=== PATIENT | female | born 1950 | race Caucasian/White ===

== ENCOUNTER 2020-07-10 07:39 | Outpatient (CLI) | payer OTHER, SELFPAY ==
--- NOTE | ~2020-07-10 | MR_ITS ---
EXAMINATION: MR lumbar spine wo con DATE: 07/10/2020 10:23 INDICATION: Difficulty walking with pain and numbness in the bilateral lower limbs. TECHNIQUE: Magnetic resonance imaging (MRI) of the lumbar spine was performed without intravenous con trast. Sequences included sagittal T2-weighted FSE, sagittal T2-weighted FS FSE, sagittal T1-weighted FSE, and axial T2-weighted FSE. COMPARISON: CT abdomen and pelvis dated 05/19/2016 FINDINGS: 4 mm anterolisthesis L4 on L5. Chronic mild anterior wedging at T12-L2. Mild marrow edema surrounding small Schmorl's nodes at either side of the L2-L3 and L3-L4 disc spaces. Additional mild fibrofatty and fibrovascular degenerative endplate changes at multiple levels. No pathologic marrow replacing pr ocess. Severe disc height loss at L5-S1. Moderate disc height loss at L4-L5. Mild disc height loss at L2-L3 and L3-L4. The conus medullaris terminates at L2. There is normal signal in the caudal spinal cord. Paravertebral soft tissues are unremarkable. The following disc levels are specifically discuss ed: T12-L1: The disc does not extend beyond the endplate margin. There is moderate bilateral facet joint osteoarthritis. There is no neural foraminal stenosis. There is no central canal stenosis. L1-L2: Disc is minimally bulging. There is hypertrophy of the ligamentum flavum. There is mild to mo derate left and severe right facet joint osteoarthritis. There is minimal bilateral neural foraminal stenosis. There is mild central canal stenosis. L2-L3: Disc is bulging. There is hypertrophy of the ligamentum flavum. There is mild left and moderat e right facet joint osteoarthritis. There is mild left and mild to moderate right neural foraminal st enosis. There is mild to moderate central canal stenosis. L3-L4: Disc is bulging with annular fissure. There is hypertrophy of the ligamentum flavum. There is severe bilateral facet joint osteoarthritis. There is moderate left and mild to moderate right neura l foraminal stenosis. There is moderate central canal stenosis. L4-L5: Disc is bulging with annular fissure. There is hypertrophy of the ligamentum flavum. There is severe bilateral facet joint osteoarthritis. There is moderate bilateral neural foraminal stenosis. There is severe central canal stenosis. L5-S1: The disc does not extend beyond the endplate margin. There is mild right and moderate left fac et joint osteoarthritis. There is mild right and mild to moderate left neural foraminal stenosis. The re is no central canal stenosis. IMPRESSION: 1. Severe lumbar spondylosis most notable for 4 mm anterolisthesis L4 on L5 with severe central canal stenosis. Reviewed, dictated and finalized at location B. R HAND IMPRESSION: 1. Severe lumbar spondylosis most notable for 4 mm anterolisthesis L4 on L5 wit h severe central canal stenosis.
--- NOTE | ~2020-07-10 | US_ITS ---
EXAMINATION: US arterial ankle brachial ind DATE: 07/10/2020 08:55 INDICATION: Bilateral lower limb pain. TECHNIQUE: Segmental pressures and plethysmographic and Doppler waveforms of the brachial and lower e xtremity arteries were obtained. COMPARISON: None. FINDINGS: Right and left brachial artery pressures of 147 mm Hg and 176 mm Hg, respectively, are concordant (no rmal difference <= 30 mmHg). Relatively symmetric biphasic waveforms with brisk systolic upstrokes at both the right and left brachial arteries. The right ankle-brachial index (NINI) is 1.01 (normal >= 0.9-1.0). The right great toe-brachial index (TBI) is 0.92 (normal >= 0.65). Arterial Doppler waveforms are biphasic with brisk systolic upstrokes at both the right posterior tibial and dorsalis pedis arteries. The left NINI is 1.00. The left TBI is 0.69. Arterial Doppler waveforms are biphasic with brisk systol ic upstrokes of both the left posterior tibial and dorsalis pedis arteries.. IMPRESSION: 1. No significant arterial occlusive disease to either lower limb with normal bilateral ABIs and TBIs . 2. Cardiac arrhythmia noted on a couple of the arterial waveforms tracings. Correlate with EKG . Reviewed, dictated and finalized at location B. SFUSION AIDE IMPRESSION: 1. No significant arterial occlusive disease to either lower limb with normal b ilateral ABIs and TBIs. 2. Cardiac arrhythmia noted on a couple of the arterial waveforms tracings. Cor relate with EKG .
[2020-07-10 08:39] LABS: Alanine Aminotransferase 15 U/L (4-35); Albumin Level 3.8 g/dL (3.5-5.1); Alkaline Phosphatase 93 U/L (38-126); Anion Gap 4 mmol/L (8-16); Aspartate Amino Transferase 23 U/L (14-36); Bilirubin,Total 0.6 mg/dL (0.2-1.3); Blood Urea Nitrogen 12 mg/dL (7-17); CRP 0.9 mg/dL (<1.0); Calcium 9.5 mg/dL (8.4-10.2); Carbon Dioxide 29 mmol/L (22-30); Chloride 106 mmol/L (98-107); Creatine Kinase 44 U/L (30-135); Estimated Glomerular Filt Rate > 60; Glucose 99 mg/dL (65-105); Potassium 4.5 mmol/L (3.4-5.0); Sodium 139 mmol/L (137-145)
[2020-07-10 08:40] LABS: Rheumatoid Factor < 8.6 IU/ML (<12)
[2020-07-10 08:52] LABS: Erythrocyte Sedimentation Rate 49 mm/hr (0-20)
== END 2020-07-10 07:40 | disposition home or self-care (01) ==
PROVIDERS: Family Provider Family Medicine; PCP Family Medicine; Visit Provider Nurse Practitioner Family
DX: R29.898 Other symptoms and signs involving the musculoskeletal system (principal); M79.604 Pain in right leg; M79.605 Pain in left leg; R09.89 Other specified symptoms and signs involving the circulatory and respiratory systems; M47.816 Spondylosis without myelopathy or radiculopathy, lumbar region; I49.9 Cardiac arrhythmia, unspecified
CPT/HCPCS: 36415; 72148; 80053; 82550; 85652; 86140; 86430; 93922

== ENCOUNTER 2020-12-16 22:59 | Emergency (ER) | payer OTHER, SELFPAY ==
--- NOTE | ~2020-12-16 | XR_ITS ---
XR chest 1V portable 12/16/2020 23:14 Indication: Weakness. Dyspnea. Procedure: AP portable chest Comparison: Comparison to multiple prior studies sequentially, with oldest reviewed study dated 02/04. Findings: Heart size upper normal. There is bibasilar atelectasis/scarring. No focal pneumonia, edema , pleural effusion or pneumothorax. No acute osseous abnormality. Mild degenerative changes of the sh oulders. Impression: 1: Bibasilar atelectasis/scarring. Reviewed, dictated and finalized at location A. Impression: 1: Bibasilar atelectasis/scarring.
--- NOTE | ~2020-12-16 | CT_ITS ---
EXAMINATION: CT BRAIN W/O DATE: 12/16/2020 23:23 INDICATION: Left arm numbness TECHNIQUE: Computed tomography (CT) of the head was performed without intravenous contrast. The dose- length product was 681.00 mGy-cm. Automated exposure control and iterative reconstruction technique w ere employed. COMPARISON: CT dated 05/14/2009 FINDINGS: Normal brain parenchymal volume for age. Normal schaefer-white differentiation. No acute intrac ranial hemorrhage, infarction, mass or mass effect. There are scattered mild periventricular and subc ortical white matter changes, most likely related to small vessel ischemic disease (microangiopathy). No ventriculomegaly or midline shift. Midline sagittal images demonstrate a normal corpus callosum, c raniovertebral junction and sella turcica. Basilar cisterns are patent. Paranasal sinuses and mastoids are pneumatized. No depressed skull fractures. IMPRESSION: 1. No acute intracranial abnormality. 2: Chronic age-related findings. Reviewed, dictated and finalized at location A.
--- NOTE | 2020-12-16 23:05 | ECG_ITS ---
Measurements Intervals [place] Rate: 62 P: 21 CT: 182 QRS: -4 QRSD: 97 T: 19 QT: 382 QTc: 391 Interpretive Statements SINUS RHYTHM DELAYED PRECORDIAL R/S TRANSITION BORDERLINE ECG Electronically Signed On 12-17-2020 6:57:33 CDT by Cristhian Moreau D.O.
[2020-12-16 23:13] VITALS: BP 155/109; PULSE 66; RESP 17; TEMP 36.2; O2SAT 96; O2SAT 97
[2020-12-17 00:02] LABS: Basophils Absolute Auto 0.1 K/mm3 (0.0-0.1); Basophils Percent Auto 0.8 % (0.2-1.2); Eosinophils Absolute Auto 0.4 K/mm3 (0-0.3); Eosinophils Percent Auto 4.8 % (0-4.4); Hematocrit 43.5 % (37.0-47.0); Hemoglobin 13.9 g/dL (12.0-15.0); Immature Granulocyte Absolute 0.03 K/mm3 (0.00-0.031); Immature Granulocyte Percent A 0.4 % (0-0.5); Lymphocytes Absolute Auto 2.22 K/mm3 (0.9-3.2); Lymphocytes Percent Auto 26.7 % (18.3-44.2); Mean Corpuscular Volume 90.8 fl (80-100); Mean Platelet Volume 9.9 fl (7.4-10.4); Monocytes Absolute Auto 0.7 K/mm3 (0.1-0.6); Monocytes Percent Auto 8.3 % (2.6-8.5); Neutrophils Absolute Auto 4.9 K/mm3 (1.3-6.7); Platelet Count Result 232 k/mm3 (150-375); Red Blood Count 4.79 M/mm3 (4.2-5.4); Red Cell Distribution Width 14.6 % (11.5-14.5); White Blood Count 8.3 K/mm3 (4.5-10.0)
[2020-12-17 00:13] LABS: Lactic Acid Reflex 1.9 mmol/L (0.7-2.1)
--- NOTE | 2020-12-17 00:14 | ED.GENADULT ---
HPI - General Adult General Chief complaint: Neuro Symptoms/Deficit Stated complaint: possible code stroke Time Seen by Provider: 12/16/20 23:01 History of Present Illness HPI narrative: Patient 70-year-old female that presents the emergency department with chief complaint of numbness of the left hand. Patient states that she started having tingling in the dorsum aspect of her left hand. The patient states that it did initially radiate up her arm but then subsequently is just on the dorsum of the hand and not on the palmar aspect of the hand. The patient states that she had no focal motor deficit denied facial droop denied left leg weakness. The reports that she has chronic weakness in her legs that is unchanged from previous days. Related Data Home Medications Medication Instructions Recorded Confirmed aspirin 81 mg tablet,delayed 81 mg PO DAILY 08/27/19 11/20/20 release Allergies Allergy/AdvReac Type Severity Reaction Status Date / Time hydrocodone Allergy Severe SET BODY Verified 12/16/20 23:47 ON FIRE methocarbamol Allergy Mild ?NOT Verified 12/16/20 23:47 FAMILIAR WITH MED. Review of Systems Review of Systems: Narrative: A 10 system review of systems was completed on the patient and is negative except for what is stated in the HPI. Nursing and ancillary documentation was reviewed. [facility] Past Medical History Medical History Abnormal colonoscopy (~2012) polyps removed - repeat 5 yrs CAD (coronary artery disease) Central stenosis of spinal canal Encounter for screening for malignant neoplasm of colon Essential (primary) hypertension Hyperlipidemia Hypothyroid Reactive depression Spondylosis of lumbar spine with myelopathy Vitamin D deficiency Surgical History Surgical History History of cholecystectomy History of total left knee replacement (~2010) History of tubal ligation Family History Family History Mother Family history of primary malignant neoplasm of liver Father Family history of coronary artery disease Social History Social History Smoking status: Never smoker Alcohol intake: never Gender identity (if verbalized by the patient): Female Exam Narrative: Exam Narrative: GENERAL: Well-appearing, well-nourished, and in no acute distress. HEAD: Normocephalic, atraumatic. EYES: PERRLA and EOMI. ENT: Nares clear, no rhinorrhea or epistaxis. Mucous membranes moist. NECK: Supple. CHEST: Clear to auscultation. No respiratory distress. HEART: Regular rate and rhythm. No murmur heard. Normal peripheral pulses. ABDOMEN: Soft, nontender, nondistended, normal active bowel sounds. EXTREMITIES: Normal range of motion. No edema. SKIN: Warm, dry, no rash. NEURO: No focal deficits. Alert and oriented x3. PSYCH: Normal mood and affect. Course Course Emergency Course: EKG is sinus rhythm rate of [address] elevation or ST depression Vital Signs Vital signs: Vital Signs Temperature 36.2 C L 12/16/20 23:13 Pulse Rate 66 12/16/20 23:13 Respiratory Rate 12/16/20 23:13 Blood Pressure 155/109 H 12/16/20 23:13 Pulse Oximetry 96 12/16/20 23:13 Temperature 36.2 C L 12/16/20 23:13 Pulse Rate 66 12/16/20 23:13 Respiratory Rate 12/16/20 23:13 Blood Pressure 155/109 H 12/16/20 23:13 Pulse Oximetry 97 12/16/20 23:13 Medical Decision Making Vital Signs Vital Signs: Vital Signs Temperature 36.2 C L 12/16/20 23:13 Pulse Rate 66 12/16/20 23:13 Respiratory Rate 12/16/20 23:13 Blood Pressure 155/109 H 12/16/20 23:13 Pulse Oximetry 96 12/16/20 23:13 Temperature 36.2 C L 12/16/20 23:13 Pulse Rate 66 12/16/20 23:13 Respiratory Rate 12/16/20 23:13 Blood Pressure
[2020-12-17 00:15] LABS: Alanine Aminotransferase 13 U/L (4-35); Albumin Level 4.2 g/dL (3.5-5.1); Alkaline Phosphatase 93 U/L (38-126); Anion Gap 7 mmol/L (8-16); Aspartate Amino Transferase 23 U/L (14-36); Bilirubin,Total 0.4 mg/dL (0.2-1.3); Blood Urea Nitrogen 16 mg/dL (7-17); Calcium 9.5 mg/dL (8.4-10.2); Carbon Dioxide 28 mmol/L (22-30); Chloride 104 mmol/L (98-107); Estimated CRCL calculation 61 ml/min; Estimated Glomerular Filt Rate > 60; Glucose 100 mg/dL (65-105); Magnesium 1.4 mg/dL (1.6-2.3); Partial Thromboplastin Time 34.2 SECONDS (22.3-36.8); Potassium 3.7 mmol/L (3.4-5.0); Sodium 139 mmol/L (137-145)
[2020-12-17 00:26] LABS: Troponin I < 0.012 ng/mL (0.000-0.034)
[2020-12-17] MEDS: MAGNESIUM SULF 2 GM/WATER 50ML 2 GM/50 ML BAG IVPB (00:55)
--- NOTE | 2020-12-17 01:40 | PC.NURSE ---
IV attempt at EJ unsuccessful per Dr. Davies. Preparing to place central line.
== END 2020-12-17 01:45 | disposition home or self-care (01) ==
PROVIDERS: Emergency Provider Emergency Medicine; PCP Family Medicine
DX: R20.2 Paresthesia of skin (principal); E83.42 Hypomagnesemia; I25.10 Atherosclerotic heart disease of native coronary artery without angina pectoris; I10 Essential (primary) hypertension; E78.5 Hyperlipidemia, unspecified; E03.9 Hypothyroidism, unspecified; E55.9 Vitamin D deficiency, unspecified; Z96.652 Presence of left artificial knee joint; R94.31 Abnormal electrocardiogram [ECG] [EKG]
CPT/HCPCS: 36415; 70450; 71045; 80053; 83605; 83735; 84484; 85025; 85610; 85730; 93005; 96365; 99284; J3475

== ENCOUNTER 2021-02-06 19:05 | Inpatient (IN) | payer MEDICARE, MEDICAID, SELFPAY ==
[2021-02-06] VITALS (16 sets, daily range): BP systolic 130–169; BP diastolic 74–126; PULSE 68–103; RESP 12–19; TEMP 36.8; O2SAT 98–100
--- NOTE | ~2021-02-06 | CT_ITS ---
EXAMINATION: CT brain wo con DATE: 02/06/2021 20:22 INDICATION: Syncope. Neck pain. TECHNIQUE: Computed tomography (CT) of the head was performed without intravenous contrast. The mA wa s adjusted according to patient size. Iterative reconstruction technique was employed. Exam dose: 60 5.33 mGy-cm total exam DLP. COMPARISON: None FINDINGS: No intracranial mass lesion or hemorrhage or cerebrovascular accident is evident. There is no midline shift or mass effect effect. There is bilateral carotid siphon internal carotid artery calcification. There is nonspecific diminis hed attenuation of the subcortical and periventricular cerebral white matter, likely due to chronic s mall vessel ischemic changes. No subdural or epidural hematoma. No fracture or bone destruction of the cranial vault. Included paranasal sinuses and the mastoid air cells are unremarkable. IMPRESSION: Cerebral atherosclerosis and chronic small vessel ischemic changes of cerebral white mat ter No acute intracranial finding Reviewed, dictated and finalized at Location [facility]. Reviewed, dictated and finalized at location A. IMPRESSION: Cerebral atherosclerosis and chronic small vessel ischemic changes of cerebral white matter No acute intracranial finding
--- NOTE | ~2021-02-06 | CT_ITS ---
EXAMINATION: CT cervical spine wo con DATE: 02/06/2021 20:22 INDICATION: Fall. Neck pain. TECHNIQUE: Computed tomography (CT) of the cervical spine was performed without intravenous contrast. Automated exposure control and iterative reconstruction technique were employed. Exam dose: 429.02 mGy-cm total exam DLP. COMPARISON: None FINDINGS: There are erosive changes of the odontoid process and at the left C1 and C2 apophyseal join t. Moderately severe degenerative disc disease at C3-4, C4-5, C5-6, C6-7. There is degenerative change at the apophyseal joints. Uncovertebral joint spurring is noted througho ut the cervical spine as well. No fracture or dislocation or locked facet or prevertebral soft tissue swelling is evident.. IMPRESSION: Erosive changes of the odontoid and left C1-C2 apophyseal joint Extensive degenerative changes of the cervical spine No fracture or dislocation, locked facet or prevertebral soft tissue swelling Reviewed, dictated and finalized at Location [facility]. Reviewed, dictated and finalized at location A.
--- NOTE | ~2021-02-06 | CT_ITS ---
EXAMINATION: CTA chest PE protocol DATE: 02/06/2021 22:10 INDICATION: Syncope. Elevated d-dimer. TECHNIQUE: Computed tomography angiography (CTA) of the chest was performed with 100 mL Omnipaque-350 intravenous contrast timed to evaluate the pulmonary arteries. Coronal maximum intensity projection 3D-reconstructions were created by the technologist. Automated exposure control and iterative reconst ruction technique were employed. Exam dose: 999.83 mGy-cm total exam DLP. COMPARISON: 12/16/2020 portable AP chest FINDINGS: There is diagnostic contrast enhancement of the pulmonary arteries and no evidence of pulmo nary embolism. 4.2 cm diameter of ascending aorta. No thoracic aortic dissection. Normal heart size. No pericardial or pleural effusion. No hilar or mediastinal mass lesion or lymphadenopathy. Bilateral lower lung discoid atelectasis and/or scarring. No pulmonary scarring or pulmonary mass les ion. Prominent right leaf diaphragm. Normal morphology of the adrenal glands. Disposition spondylolisthesis of the thoracic spine. IMPRESSION: No evidence of pulmonary embolism Bilateral lower lung discoid atelectasis and/or scarring Reviewed, dictated and finalized at [facility]. Reviewed, dictated and finalized at location A.
--- NOTE | 2021-02-06 19:06 | ECG_ITS ---
Measurements Intervals [place] Rate: 84 P: -56 NV: 147 QRS: -17 QRSD: 98 T: 62 QT: 332 QTc: 393 Interpretive Statements SINUS RHYTHM ATRIAL PREMATURE COMPLEX BASELINE ARTIFACT- I, II, III BORDERLINE ECG Electronically Signed On 02-07-2021 8:17:57 CDT by Cristhian Moreau D.O.
[2021-02-06 19:49] LABS: Basophils Absolute Auto 0.1 K/mm3 (0.0-0.1); Basophils Percent Auto 0.8 % (0.2-1.2); Eosinophils Absolute Auto 0.3 K/mm3 (0-0.3); Eosinophils Percent Auto 4.1 % (0-4.4); Hematocrit 43.4 % (37.0-47.0); Hemoglobin 13.7 g/dL (12.0-15.0); Immature Granulocyte Absolute 0.03 K/mm3 (0.00-0.031); Immature Granulocyte Percent A 0.4 % (0-0.5); Lymphocytes Absolute Auto 2.24 K/mm3 (0.9-3.2); Lymphocytes Percent Auto 27.1 % (18.3-44.2); Mean Corpuscular HGB Conc 31.6 g/dl (32-36); Mean Corpuscular Hemoglobin 28.7 pg (26-34); Mean Corpuscular Volume 90.8 fl (80-100); Mean Platelet Volume 9.8 fl (7.4-10.4); Monocytes Absolute Auto 0.8 K/mm3 (0.1-0.6); Monocytes Percent Auto 9.4 % (2.6-8.5); Neutrophils Absolute Auto 4.8 K/mm3 (1.3-6.7); Neutrophils Percent Auto 58.2 % (45.5-73.1); Platelet Count Result 245 k/mm3 (150-375); Red Blood Count 4.78 M/mm3 (4.2-5.4); Red Cell Distribution Width 14.6 % (11.5-14.5); White Blood Count 8.3 K/mm3 (4.5-10.0)
[2021-02-06 20:00] LABS: Anion Gap 7 mmol/L (8-16); Blood Urea Nitrogen 15 mg/dL (7-17); Calcium 9.4 mg/dL (8.4-10.2); Carbon Dioxide 25 mmol/L (22-30); Chloride 108 mmol/L (98-107); Estimated CRCL calculation 63 ml/min; Estimated Glomerular Filt Rate > 60; Glucose 108 mg/dL (65-110); Potassium 4.3 mmol/L (3.4-5.0); Sodium 140 mmol/L (137-145)
--- NOTE | 2021-02-06 20:18 | ED.SYNCOPE ---
HPI - Syncope General Chief Complaint: Syncope Stated Complaint: near syncope Source: patient Mode of arrival: EMS Limitations: no limitations History of Present Illness HPI narrative: Patient is a 70-year-old female complaining of a syncopal episode at home. Patient states that she felt dizzy prior to the syncopal episode. Patient states that she has been feeling sick for the past few days with nausea vomiting and diarrhea. Patient denies speech or visual disturbance, focal weakness or numbness, unsteady gait, chest pain, shortness of breath abdominal pain, fever, chills or urinary symptoms. Related Data Home Medications Medication Instructions Recorded Confirmed aspirin 81 mg tablet,delayed 81 mg PO DAILY 08/27/19 11/20/20 release Allergies Allergy/AdvReac Type Severity Reaction Status Date / Time hydrocodone Allergy Severe SET BODY Verified 02/06/21 20:33 ON FIRE methocarbamol Allergy Mild ?NOT Verified 02/06/21 20:33 FAMILIAR WITH MED. Review of Systems Review of Systems: All systems reviewed & are unremarkable except as noted in HPI and below Constitutional: Constitutional: Denies body ache(s), Denies chills, Denies excessive sweating, Denies fatigue, Denies fever(s), Denies headache(s), Denies lethargy, Denies malaise, Denies weakness and Denies weight loss Eyes: Eyes: Denies blurry vision, Denies change in vision and Denies loss of vision ENT: Denies dizziness, Denies ear discharge, Denies headache(s), Denies lip swelling, Denies epistaxis, Denies nasal congestion, Denies neck pain, Denies throat swelling and Denies tongue swelling Cardiovascular: Cardiovascular: Denies chest pain, Denies chest pain at rest, Denies chest pain with activity, Denies diaphoresis, Denies rapid heart rate, Denies edema, Denies irregular heart rhythm, Denies lightheadedness, Denies palpitations, Denies dyspnea and Denies dyspnea on exertion Respiratory: Respiratory: Denies chest congestion, Denies cough, Denies hemoptysis, Denies dyspnea and Denies dyspnea on exertion Gastrointestinal: Gastrointestinal: Denies abdominal pain, Denies melena, Denies hematochezia, Denies diarrhea, Denies nausea, Denies vomiting and Denies hematemesis Musculoskeletal: Musculoskeletal: Denies abnormal gait, Denies deformity, Denies joint swelling, Denies limited range of motion, Denies neck pain and Denies numbness Neurologic: Denies Abnormal speech present, Denies abnormal gait, Denies confusion, Denies dizziness, Denies headache(s), Denies focal weakness, Denies loss of vision, Denies numbness, Denies Other visual disturbances, Denies Sensory deficit (Neuro) and Denies weakness Psychiatric: Psychiatric: Denies confusion, Denies depression, Denies auditory hallucinations, Denies homicidal ideation and Denies suicidal ideation Endocrine: Endocrine: Denies cold intolerance, Denies excessive sweating, Denies fatigue, Denies heat intolerance and Denies palpitations Hematologic/Lymphatic: Hematologic/Lymphatic: Denies easy bleeding and Denies easy bruising Allergic/Immunologic: Allergic/Immunologic: Denies lip swelling, Denies throat swelling and Denies tongue swelling PMFSH Past Medical History Medical History Abnormal colonoscopy (~2012) polyps removed - repeat 5 yrs CAD (coronary artery disease) Central stenosis of spinal canal Encounter for screening for malignant neoplasm of colon Essential (primary) hypertension Hyperlipidemia Hypothyroid Reactive depression Spondylosis of lumbar spine with myelopathy Vitamin D deficiency Surgical History Surgical History History of cholecystectomy History of total left knee replacement (~2010) History of tubal ligation Family History Family History Mother Family history of primary malignant neoplasm of liver Father Family
--- NOTE | 2021-02-06 20:31 | PC.NURSE ---
called lab and added on a d dimer, CMP, lipase
[2021-02-06] MEDS: LACTATED RINGERS 1,000 ML 999 ML IV CONT (20:32)
[2021-02-06 20:41] LABS: Alanine Aminotransferase 14 U/L (4-35); Alkaline Phosphatase 91 U/L (38-126); Anion Gap 10 mmol/L (8-16); Aspartate Amino Transferase 21 U/L (14-36); Bilirubin,Total 0.2 mg/dL (0.2-1.3); Blood Urea Nitrogen 15 mg/dL (7-17); Calcium 9.6 mg/dL (8.4-10.2); Carbon Dioxide 22 mmol/L (22-30); Chloride 104 mmol/L (98-107); Estimated CRCL calculation 63 ml/min; Estimated Glomerular Filt Rate > 60; Glucose 112 mg/dL (65-110); Lipase 70 U/L (23-300); Potassium 4.1 mmol/L (3.4-5.0); Sodium 136 mmol/L (137-145)
[2021-02-06 21:01] LABS: D Dimer 2.03 ug/mL (<0.48)
[2021-02-07] VITALS (11 sets, daily range): BP systolic 136–141; BP diastolic 50–72; PULSE 53–87; RESP 16–20; TEMP 36.2–36.7; O2SAT 96–100; BMI 47.6
[2021-02-07] MEDS: LACTATED RINGERS 1,000 ML 100 ML IV CONT ×2 (00:25→11:48)
--- NOTE | 2021-02-07 01:11 | PM.IMHP ---
H&P: HPI History of Present Illness Date/Time: 02/07/21 01:11 Chief Complaint: Syncope Narrative: Patient is a 70-year-old female presents to the ER today with 1 syncopal episode. She stated that she has been feeling sick for the past few days with nausea of vomiting and diarrhea and abdominal soreness. She states she had been having 3-4 episodes of loose stool since past week. yesterday in the afternoon when she was trying to get to the commode she found herself down on the floor. She does not recall how long she had been down though. She has been feeling dizzy and lightheadedness for the past week now. No fever chills no shortness of breath or chest pain. In the ER she is found to have normal CBC and CMP normal lipase is however was noted to have elevated D-dimer for which CTA was done which was negative for PE. He reports he has been having left-sided neck pain which is chronic problem for has been particularly bothering her for which a cervical spine CT scan was done which showed extensive degenerative changes of the cervical spine with erosive changes of the odontoid and left C1-C2 apophyseal joint. CT head was negative for any acute intracranial finding. EKG was within normal limit. She is admitted for further evaluation and management under observation status. Review of Systems Review of Systems: - CONSTITUTIONAL: Denies weight loss, fever and chills. - HEENT: Denies changes in vision and hearing - RESPIRATORY: Denies SOB and cough. - CV: Denies palpitations and CP. - GI: Reports abdominal pain, nausea, vomiting and diarrhea. - : Denies dysuria and urinary frequency. - MSK: Denies myalgia and joint pain. - SKIN: Denies rash and pruritus. - NEUROLOGICAL: Denies headache and reports syncope. - PSYCHIATRIC: Denies recent changes in mood. Denies anxiety and depression. All systems reviewed & are unremarkable except as noted in HPI and below Constitutional: Constitutional: Reports fatigue and Reports weakness Neurologic: Reports weakness Endocrine: Endocrine: Reports fatigue PMFSH Past Medical History Medical History Abnormal colonoscopy (~2012) polyps removed - repeat 5 yrs CAD (coronary artery disease) Central stenosis of spinal canal Encounter for screening for malignant neoplasm of colon Essential (primary) hypertension Hyperlipidemia Hypothyroid Reactive depression Spondylosis of lumbar spine with myelopathy Vitamin D deficiency Surgical History Surgical History History of cholecystectomy History of total left knee replacement (~2010) History of tubal ligation Family History Family History Mother Family history of primary malignant neoplasm of liver Father Family history of coronary artery disease Social History Social History Smoking status: Never smoker Alcohol intake: never Substance use: never Gender identity (if verbalized by the patient): Female Spiritual care concerns: No Meds Home Medications and Allergies Home Medications Medication Instructions Recorded Confirmed Type aspirin 81 mg tablet,delayed 81 mg PO DAILY 08/27/19 02/07/21 History release losartan 100 mg PO DAILY 02/07/21 02/07/21 History magnesium oxide 400 mg PO EVERY OTHER DAY 02/07/21 02/07/21 History Allergies Allergy/AdvReac Type Severity Reaction Status Date / Time hydrocodone Allergy Severe SET BODY Verified 02/06/21 20:33 ON FIRE methocarbamol Allergy Mild ?NOT Verified 02/06/21 20:33 FAMILIAR WITH MED. Vital Signs Vital Signs - 24 hr 02/06/21 19:06 02/06/21 20:30 02/06/21 20:45 Temperature 98.3 F Pulse Rate 88 74 84 Respiratory Rate 16 19 12 Blood Pressure 130/74 Pulse Oximetry 99 98 100 02/06/21 20:46
[2021-02-07 06:01] LABS: Add Urine Microscopic? YES; Appearance Urine Clear (Clear); Bacteria Urine Trace /hpf; Bilirubin Urine Negative (Negative); Blood Urine 1+ (Negative); Color Urine Yellow (Yellow); Glucose Urine UA Negative (Negative); Ketones Urine Negative (Negative); Leukocyte Esterase Ur 1+ LEU/UL (NEGATIVE); Mucus Urine Rare /lpf; Nitrate Urine Positive (Negative); Protein Urine Negative (Negative); Squamous Epithelial Cell Urine Rare /hpf (Few); Urobilinogen Urine Negative mg/dL (<2.0); WBC Urine 16-20 /hpf (0-3)
[2021-02-07 06:02] LABS: Specific Grav Ur 1.038 (1.001-1.035)
[2021-02-07] MEDS: NAPROXEN SODIUM 220 MG TABLET PO ×2 (06:30→20:40)
[2021-02-07] MEDS: ENOXAPARIN 40 MG/0.4 ML SYRINGE SUB-Q (09:06)
[2021-02-07] MEDS: ASPIRIN 81 MG ENTERIC TABLET PO (09:06)
[2021-02-07] MEDS: LOSARTAN POTASSIUM 50 MG TABLET 100 MG PO (09:06)
--- NOTE | 2021-02-07 12:27 | PM.IMPN ---
Progress Note: A&P Assessment and Plan (1) Syncope: Qualifiers: Syncope type: unspecified Qualified Code(s): R55 - Syncope and collapse Code(s): R55 - Syncope and collapse Status: Acute (2) Neck muscle strain: Qualifiers: Encounter type: initial encounter Qualified Code(s): S16.1XXA - Strain of muscle, fascia and tendon at neck level, initial encounter Code(s): S16.1XXA - Strain of muscle, fascia and tendon at neck level, initial encounter Status: Acute (3) Hyperlipidemia: Qualifiers: Hyperlipidemia type: mixed hyperlipidemia Qualified Code(s): E78.2 - Mixed hyperlipidemia Code(s): E78.5 - Hyperlipidemia, unspecified Status: Acute (4) Essential (primary) hypertension: Code(s): I10 - Essential (primary) hypertension Status: Acute (5) Hypothyroid: Qualifiers: Hypothyroidism type: acquired Qualified Code(s): E03.9 - Hypothyroidism, unspecified Code(s): E03.9 - Hypothyroidism, unspecified Status: Acute (6) CAD (coronary artery disease): Code(s): I25.10 - Atherosclerotic heart disease of [place] coronary artery without angina pectoris Status: Acute (7) Lower extremity pain, bilateral: Code(s): M79.604 - Pain in right leg; M79.605 - Pain in left leg Status: Acute (8) Weakness of both lower limbs: Code(s): R29.898 - Other symptoms and signs involving the musculoskeletal system Status: Acute (9) Central stenosis of spinal canal: Code(s): M48.00 - Spinal stenosis, site unspecified Status: Acute (10) Spondylosis of lumbar spine with myelopathy: Code(s): M47.16 - Other spondylosis with myelopathy, lumbar region Status: Acute (11) Neurogenic bladder: Code(s): N31.9 - Neuromuscular dysfunction of bladder, unspecified Status: Acute Additional Plan # syncope likely due to orthostasis Former history. orthostatic vitals However negative in the ER. D-dimer elevated however CT a negative for PE. EKG with normal sinus rhythm. Have to get urine sample to check for UTI but no samples collected yet however denies any urinary symptoms # Nausea vomiting diarrhea likely acute gastroenteritis slowly improving spontaneously. Continue IV hydration. Stool studies showed # Bilateral lower extremity weakness related to spinal canal stenosis and lumbar spondylosis /myelopathy # Neurogenic bladder on self catheterization since past 5 years # Left-sided neck pain has been seeing her primary care for this as well CT cervical spine with moderately severe degenerative disc disease she has been referred to Neurosurgery by her primary care Dr. Hoffman awaiting his evaluation # Hypothyroidism # Hypertension # Hyperlipidemia # Coronary artery disease no stents in the past reported # Morbid obesity # Pre diabetes # History of syncope # Sleep apnea # Diastolic CHF # Peripheral vascular disease mild lower extremities # DVT prophylaxis Lovenox # Full code status Subjective Date/time seen: 02/07/21 12:27 Interval history: Agree with current A/P Objective Data Vital Signs Vital Signs: Vital Signs - 24 hr 02/06/21 19:06 02/06/21 20:30 02/06/21 20:45 Temperature 36.8 C Pulse Rate 88 74 84 Respiratory Rate 16 19 12 Blood Pressure 130/74 Pulse Oximetry 99 98 100 02/06/21 20:46 02/06/21 20:47 02/06/21 21:03 Temperature Pulse Rate 83 87 87 Respiratory Rate 19 Blood Pressure 137/93 H Pulse Oximetry 98 98 100 02/06/21 21:20 02/06/21 21:30 02/06/21 21:31 Temperature Pulse Rate 89 83 83 Respiratory Rate 18 19 15 Blood Pressure 137/98 H 169/94 H Pulse Oximetry 02/06/21 21:33 02/06/21 21:37 02/06/21 21:55 Temperature Pulse Rate 103 H 68 Respiratory Rate 12 Blood Pressure 169/94 H 165/126 H Pulse Oximetry 98 02/06/21 22:00 02/06/21 22:15 02/06/21 22:30 Temperature Pulse Rate 69 75 96 Respiratory Rate 13
[2021-02-07] MEDS: ONDANSETRON INJ 4 MG/2 ML VIAL IV PUSH (18:06)
[2021-02-08] VITALS (9 sets, daily range): BP systolic 127–129; BP diastolic 50–71; PULSE 53–81; RESP 16–18; TEMP 36.3–36.9; O2SAT 96–98
[2021-02-08] MEDS: LACTATED RINGERS 1,000 ML 100 ML IV CONT (01:20)
[2021-02-08] MEDS: NAPROXEN SODIUM 220 MG TABLET PO ×2 (01:28→21:29)
[2021-02-08 06:01] LABS: Hemoglobin 12.9 g/dL (12.0-15.0); Mean Corpuscular HGB Conc 31.5 g/dl (32-36); Mean Corpuscular Hemoglobin 29.4 pg (26-34); Mean Corpuscular Volume 93.4 fl (80-100); Mean Platelet Volume 10.1 fl (7.4-10.4); Platelet Count Result 210 k/mm3 (150-375); Red Blood Count 4.39 M/mm3 (4.2-5.4); Red Cell Distribution Width 14.6 % (11.5-14.5); White Blood Count 7.5 K/mm3 (4.5-10.0)
[2021-02-08 06:10] LABS: Anion Gap 6 mmol/L (8-16); Blood Urea Nitrogen 16 mg/dL (7-17); Carbon Dioxide 25 mmol/L (22-30); Chloride 107 mmol/L (98-107); Estimated CRCL calculation 61 ml/min; Estimated Glomerular Filt Rate > 60; Glucose 86 mg/dL (65-110); Potassium 4.1 mmol/L (3.4-5.0); Sodium 138 mmol/L (137-145)
[2021-02-08] MEDS: MAGNESIUM OXIDE 400 MG TABLET PO (09:20)
[2021-02-08] MEDS: LOSARTAN POTASSIUM 50 MG TABLET 100 MG PO (09:20)
[2021-02-08] MEDS: ASPIRIN 81 MG ENTERIC TABLET PO (09:20)
[2021-02-08] MEDS: ENOXAPARIN 40 MG/0.4 ML SYRINGE SUB-Q (09:20)
--- NOTE | 2021-02-08 10:48 | PM.IMPN ---
Progress Note: A&P Assessment and Plan (1) Syncope: Qualifiers: Syncope type: unspecified Qualified Code(s): R55 - Syncope and collapse Code(s): R55 - Syncope and collapse Status: Acute Assessment and Plan: Suspect due to orthostasis, former history orthostatic vitals negative in the ER D-dimer elevated , CT a negative for PE Repeat ECG with normal sinus rhythm Some episodes of bradycardia while resting Will check ECHO, hx of diastolic CHF (2) Neck muscle strain: Qualifiers: Encounter type: initial encounter Qualified Code(s): S16.1XXA - Strain of muscle, fascia and tendon at neck level, initial encounter Code(s): S16.1XXA - Strain of muscle, fascia and tendon at neck level, initial encounter Status: Acute Assessment and Plan: Left-sided neck pain, follwed by PCP CT cervical spine with moderately severe degenerative disc disease Referred to Neurosurgery by her PCP, Dr. Hoffman, awaiting his evaluation (3) Hyperlipidemia: Qualifiers: Hyperlipidemia type: mixed hyperlipidemia Qualified Code(s): E78.2 - Mixed hyperlipidemia Code(s): E78.5 - Hyperlipidemia, unspecified Status: Acute (4) Essential (primary) hypertension: Code(s): I10 - Essential (primary) hypertension Status: Acute (5) Hypothyroid: Qualifiers: Hypothyroidism type: acquired Qualified Code(s): E03.9 - Hypothyroidism, unspecified Code(s): E03.9 - Hypothyroidism, unspecified Status: Acute Assessment and Plan: No home meds (6) CAD (coronary artery disease): Code(s): I25.10 - Atherosclerotic heart disease of [place] coronary artery without angina pectoris Status: Acute Assessment and Plan: Continue ASA, no statin (7) Lower extremity pain, bilateral: Code(s): M79.604 - Pain in right leg; M79.605 - Pain in left leg Status: Acute (8) Weakness of both lower limbs: Code(s): R29.898 - Other symptoms and signs involving the musculoskeletal system Status: Acute Assessment and Plan: 2/2 spondylolysis of LS with myelopathy (9) Central stenosis of spinal canal: Code(s): M48.00 - Spinal stenosis, site unspecified Status: Acute (10) Spondylosis of lumbar spine with myelopathy: Code(s): M47.16 - Other spondylosis with myelopathy, lumbar region Status: Acute Assessment and Plan: Bilateral lower extremity weakness related to spinal canal stenosis and lumbar spondylosis/myelopathy (11) Neurogenic bladder: Code(s): N31.9 - Neuromuscular dysfunction of bladder, unspecified Status: Acute Assessment and Plan: Neurogenic bladder on self catheterization since past 5 years Anguiano cath while inpatient (12) UTI (urinary tract infection): Code(s): N39.0 - Urinary tract infection, site not specified Status: Acute Assessment and Plan: UA suggestive of UTI with pyuria Follow UC Continue Rocephin for now Anguiano catheter while inpatient Additional Plan # DVT prophylaxis Lovenox # Full code status Subjective Date/time seen: 02/08/21 10:48 Interval history: pt seen and evaluated; no acute events overnight; denies any new complaints Review of Systems Review of Systems: All systems reviewed & are unremarkable except as noted in HPI and below Exam Narrative: GENERAL: The patient is morbidly obese, well developed, not in acute distress HEENT: Nonicteric sclerae, PERRLA, EOMI. Oropharynx clear. Moist mucous membranes. Conjunctivae appear well perfused. CHEST: Chest wall is nontender. HEART: Regular rate and rhythm without murmur, rubs, or gallops LUNGS: Clear to auscultation bilaterally. no respiratory distress ABDOMEN: Soft, positive bowel sounds, non-tender, no organomegaly. SKIN: No rash, no excessive bruising, petechiae, or purpura. NEUROLOGIC: alert and oriented x 3; BLE weakness EXTREMITIES: no edema, cyanosis or clubbi
[2021-02-09] VITALS (12 sets, daily range): BP systolic 122–144; BP diastolic 53–87; PULSE 59–100; RESP 16–17; TEMP 36.4–36.9; O2SAT 95–100
--- NOTE | 2021-02-09 | ECHO_ITS ---
Patient Info Name: Devi Redd Age: 70 years : 1950 Gender: Female Ht: 62 in Wt: 260 lbs BSA: 2.34 m2 HR: 56 bpm BP: 127 / 53 mmHg Technical Quality: Fair Exam Date: 02/09/2021 9:14 AM Exam Location: [facility] Patient Status: Inpatient Admit Date: 02/08/2021 Staff Ordering Physician: Cassandra Nath Sales Consultant Insurance: Chelsey Cantu RDCS Attending Provider: Maru Low PA-C Referring Physician: Portillo GARCIA; Exam Type: CA echo doppler color flow Study Info Indications - ASSESS EF Complete two-dimensional, color flow and Doppler transthoracic echocardiogram is performed. Summary 1. Complete two-dimensional, color flow and Doppler transthoracic echocardiogram is performed. 2. Left ventricular chamber dimension is normal. 3. Left ventricular systolic function is normal, estimated at 60-65%. 4. The left ventricular diastolic function is grade II diastolic dysfunction. 5. E/e' 9 is minimally elevated. 6. Global longitudinal strain is abnormal at -15.9%. 7. Left atrial chamber dimension is mildly enlarged. 8. There is mild mitral valve regurgitation. 9. There is trace tricuspid valve regurgitation. 10. Mild pulmonary hypertension, estimated pulmonary arterial systolic pressure is 46 mmHg. Left Ventricle E/e' 9 is minimally elevated. Global longitudinal strain is abnormal at -15.9%. Left ventricular chamber dimension is normal. Left ventricular systolic function is normal, estimated at 60-65%. The left ventricular diastolic function is grade II diastolic dysfunction. Right Ventricle Right ventricular systolic function is normal and with normal TAPSE 2.5 cm. Right ventricular chamber dimension is normal. Left Atria Left atrial chamber dimension is mildly enlarged. Right Atria Right atrial chamber dimension is normal. Aortic Valve The aortic valve is trileaflet. There is no aortic valve stenosis. There is no aortic valve regurgitation. Pulmonic Valve There is no pulmonic regurgitation. Mitral Valve There is no mitral valve stenosis. There is mild mitral valve regurgitation. Tricuspid Valve There is trace tricuspid valve regurgitation. Mild pulmonary hypertension, estimated pulmonary arterial systolic pressure is 46 mmHg. Pericardium/Pleural There is no pericardial effusion. Inferior Vena Cava Normal inferior vena cava with >50% collapse upon inspiration consistent with normal right atrial pressure, 5 mmHg. Aorta The aortic root size at the sinus of Valsalva is normal. Left Ventricular Outflow Tract Name Value Normal LVOT 2D LVOT Diameter 2.0 cm LVOT Doppler LVOT Peak Gradient 4 mmHg LVOT Mean Gradient 2 mmHg LVOT VTI 25 cm LVOT VTI/AV VTI Ratio 0.8 LVOT Stroke Volume 81 ml LVOT CO 4.6 l/min LVOT CI 1.9 l/min/m2 Pulmonic Valve Name
[2021-02-09 08:44] LABS: Hematocrit 38.5 % (37.0-47.0); Hemoglobin 12.2 g/dL (12.0-15.0); Mean Corpuscular HGB Conc 31.7 g/dl (32-36); Mean Corpuscular Hemoglobin 28.9 pg (26-34); Mean Corpuscular Volume 91.2 fl (80-100); Mean Platelet Volume 10.6 fl (7.4-10.4); Platelet Count Result 195 k/mm3 (150-375); Red Blood Count 4.22 M/mm3 (4.2-5.4); Red Cell Distribution Width 14.6 % (11.5-14.5)
[2021-02-09] MEDS: ENOXAPARIN 40 MG/0.4 ML SYRINGE SUB-Q (10:16)
[2021-02-09] MEDS: NAPROXEN SODIUM 220 MG TABLET PO (10:17)
[2021-02-09] MEDS: ASPIRIN 81 MG ENTERIC TABLET PO (10:17)
[2021-02-09] MEDS: LOSARTAN POTASSIUM 50 MG TABLET 100 MG PO (10:36)
--- NOTE | 2021-02-09 15:55 | PM.IMPN ---
Progress Note: A&P Assessment and Plan (1) Syncope: Qualifiers: Syncope type: unspecified Qualified Code(s): R55 - Syncope and collapse Code(s): R55 - Syncope and collapse Status: Acute Assessment and Plan: Presented with episode of syncope. She has a history of orthostasis. Likely due to orthostatic hypotension. She has been rehydrated with IV fluids. Orthostatic vital signs negative today. EKG with normal sinus rhythm. Continue monitoring on telemetry Echo reviewed with grade 2 diastolic dysfunction, no significant valvular disease. Fall precautions Continue to monitor orthostatics (2) UTI (urinary tract infection): Code(s): N39.0 - Urinary tract infection, site not specified Status: Acute Assessment and Plan: UA abnormal on presentation. Preliminary urine culture with Gram-negative bacilli Continue IV Rocephin Await results of urine culture and tailor antibiotics accordingly (3) Neck muscle strain: Qualifiers: Encounter type: initial encounter Qualified Code(s): S16.1XXA - Strain of muscle, fascia and tendon at neck level, initial encounter Code(s): S16.1XXA - Strain of muscle, fascia and tendon at neck level, initial encounter Status: Acute Assessment and Plan: Left-sided neck pain, follwed by PCP. CT cervical spine with moderately severe degenerative disc disease Referred to neurosurgery, Dr. Hoffman, by her PCP. Awaiting evaluation Supportive care. Ice packs and heating pad as needed (4) Essential (primary) hypertension: Code(s): I10 - Essential (primary) hypertension Status: Acute Assessment and Plan: Blood pressure reviewed and has well-controlled. Negative orthostatics today. Last BP 136/76 Continue losartan Monitor BP trends (5) Hypothyroid: Qualifiers: Hypothyroidism type: acquired Qualified Code(s): E03.9 - Hypothyroidism, unspecified Code(s): E03.9 - Hypothyroidism, unspecified Status: Acute Assessment and Plan: Documented history of hypothyroidism, though she is not on any medications. Check TSH (6) Weakness of both lower limbs: Code(s): R29.898 - Other symptoms and signs involving the musculoskeletal system Status: Acute Assessment and Plan: Related to spondylolysis of lumbar spine with myelopathy PCP managing. Referred to Neurosurgery as above Continue PT/OT (7) Neurogenic bladder: Code(s): N31.9 - Neuromuscular dysfunction of bladder, unspecified Status: Acute Assessment and Plan: Chronic. She has been complaining self catheterization for several years. Anguiano catheter while inpatient Subjective Date/time seen: 02/09/21 15:55 Interval history: Date of service: 02/09/2021 Devi Redd is a 70-year-old female with a history of CAD, hypertension, hypeothyroidism who is seen in follow-up for syncope. She is not feeling well today. She feels very lightheaded when lying in bed. She had some nausea this morning and just overall feels run down. No vomiting. She was able to tolerate her diet. No fever or chills. She was able to transfer from the chair to the bed without significant issues. She is wheelchair bound. She complains of left-sided neck pain that radiates down into the arms with numbness and tingling in the hands, particularly the 3rd and 4th digit. She denies abdominal pain. Denies shortness breath, cough, chest pain, or palpitations. Currently using a Anguiano catheter with no issues. Denies headaches or body aches. Review of Systems Review of Systems: All systems reviewed & are unremarkable except as noted in HPI and below Exam Narrative: Ms. Redd is an obese, well-appearing 70-year-old female who is lying supine in bed. She appears comfortable and is in NARD. Neuro: awake, alert and oriented x4, speech clear, no focal neuro deficits noted HE
[2021-02-10] VITALS: PULSE 61
[2021-02-10] MEDS: NAPROXEN SODIUM 220 MG TABLET PO ×2 (02:08→09:08)
[2021-02-10 03:24] VITALS: BP 124/62; PULSE 60; RESP 16; TEMP 36.4; O2SAT 95
[2021-02-10 04:00] VITALS: PULSE 53
[2021-02-10 05:43] LABS: Hematocrit 39.3 % (37.0-47.0); Hemoglobin 12.5 g/dL (12.0-15.0); Mean Corpuscular HGB Conc 31.8 g/dl (32-36); Mean Corpuscular Volume 91.2 fl (80-100); Mean Platelet Volume 9.8 fl (7.4-10.4); Platelet Count Result 202 k/mm3 (150-375); Red Blood Count 4.31 M/mm3 (4.2-5.4); Red Cell Distribution Width 14.4 % (11.5-14.5); White Blood Count 7.1 K/mm3 (4.5-10.0)
[2021-02-10 06:00] LABS: Anion Gap 12 mmol/L (8-16); Blood Urea Nitrogen 17 mg/dL (7-17); Calcium 9.1 mg/dL (8.4-10.2); Carbon Dioxide 24 mmol/L (22-30); Chloride 102 mmol/L (98-107); Estimated CRCL calculation 68 ml/min; Estimated Glomerular Filt Rate > 60; Glucose 90 mg/dL (65-110); Sodium 138 mmol/L (137-145)
[2021-02-10 08:00] VITALS: PULSE 80
[2021-02-10] MEDS: ASPIRIN 81 MG ENTERIC TABLET PO (09:07)
[2021-02-10] MEDS: MAGNESIUM OXIDE 400 MG TABLET PO (09:08)
[2021-02-10] MEDS: ENOXAPARIN 40 MG/0.4 ML SYRINGE SUB-Q (09:08)
[2021-02-10] MEDS: LOSARTAN POTASSIUM 50 MG TABLET 100 MG PO (09:08)
[2021-02-10 09:36] LABS: Free T4 Free Thyroxine Reflex 0.75 ng/dL (0.78-2.19)
--- NOTE | 2021-02-10 11:07 | PM.DS ---
DS: Admitting Diagnosis Admitting Diagnosis Syncope DS: Discharge Diagnosis Discharge Diagnosis (1) Syncope: Qualifiers: Syncope type: unspecified Qualified Code(s): R55 - Syncope and collapse Code(s): R55 - Syncope and collapse Status: Acute Assessment and Plan: Presented with episode of syncope which occurred when she stood up from bed. Suspect due to orthostatis, of which she has a history. She was rehydrated with IV fluids. EKG showed normal sinus rhythm and she was monitored on telemetry. Echo reviewed with grade 2 diastolic dysfunction, no significant valvular disease. Fall precautions implemented and discussed with her at length. Orthostatics negative during hospital stay. Adequate PO hydration encouraged. (2) Asymptomatic bacteriuria: Code(s): R82.71 - Bacteriuria Status: Acute Assessment and Plan: UA abnormal on presentation though she was asymptomatic. No fever or leukocytosis. She was started on empiric Rocephin however urine culture returned with ESBL. Suspect this is a colonizer due to her long history of self cathing. She was asymptomatic, therefore no further treatment continued. Continue with self catheterization. Should she develop any urinary symptoms, she should have a repeat urine culture evaluated. (3) Neck muscle strain: Qualifiers: Encounter type: initial encounter Qualified Code(s): S16.1XXA - Strain of muscle, fascia and tendon at neck level, initial encounter Code(s): S16.1XXA - Strain of muscle, fascia and tendon at neck level, initial encounter Status: Acute Assessment and Plan: Complained of chronic left-sided neck pain which has been followed by PCP. CT cervical spine with moderately severe degenerative disc disease. She has been referred to neurosurgery, Dr. Hoffman, by her PCP. Awaiting evaluation. Continue with supportive care. Ice packs and heating pad as needed. (4) Essential (primary) hypertension: Code(s): I10 - Essential (primary) hypertension Status: Acute Assessment and Plan: Blood pressure reviewed and was well-controlled. Negative orthostatics. Continue losartan (5) Hypothyroid: Qualifiers: Hypothyroidism type: acquired Qualified Code(s): E03.9 - Hypothyroidism, unspecified Code(s): E03.9 - Hypothyroidism, unspecified Status: Acute Assessment and Plan: Documented history of hypothyroidism, though she is not on any medications. TSH evaluated which was elevated with low T4. I spoke with her PCP office. Reports last taking levothyroxine several years ago, though no documented reason why this was stopped. Will resume levothyroxine at her old dose of 50 mcg and follow-up with PCP for recheck in 4-6 weeks. Plan discussed with PCP who is in agreement. (6) Weakness of both lower limbs: Code(s): R29.898 - Other symptoms and signs involving the musculoskeletal system Status: Acute Assessment and Plan: Related to spondylolysis of lumbar spine with myelopathy. PCP managing. Referred to Neurosurgery as above. Evaluated by PT/OT during hospital stay. She is wheelchair bound. She has an aide who comes in 3 days a week to help her. She is independent with transfers. (7) Neurogenic bladder: Code(s): N31.9 - Neuromuscular dysfunction of bladder, unspecified Status: Acute Assessment and Plan: Chronic. She has been self catheterizing for several years. DS: Summary Hospital Course Hospital Course: Date of admission 02/06/21 Date of discharge: 02/10/2021 Devi Redd is a 70-year-old female with a history of CAD, hypertension, hypothyroidism who presented to the emergency department on 02/06/2021 with complaints of syncopal episode which occurred at home. She was standing up from her bed to transfer to the chair and had a brief loss of consciousness upon standing. She fell back onto the bed. On
[2021-02-10 14:09] VITALS: BP 146/64; PULSE 55; RESP 18; TEMP 36.6; O2SAT 97
== END 2021-02-10 16:31 | disposition home or self-care (01) | DRG 312 ==
LOC: ANHED 23:07 → ANH2MED 23:37
PROVIDERS: Nurse Practitioner Adult Health; Admitting Provider Internal Medicine; Emergency Provider Emergency Medicine; PCP Family Medicine; Visit Provider Physician Assistant
DX: I95.1 Orthostatic hypotension (principal); M47.16 Other spondylosis with myelopathy, lumbar region; Z68.42 Body mass index [BMI] 45.0-49.9, adult; I50.30 Unspecified diastolic (congestive) heart failure; R82.71 Bacteriuria; I11.0 Hypertensive heart disease with heart failure; E66.01 Morbid (severe) obesity due to excess calories; S16.1XXA Strain of muscle, fascia and tendon at neck level, initial encounter; E78.2 Mixed hyperlipidemia; E03.9 Hypothyroidism, unspecified; I25.10 Atherosclerotic heart disease of native coronary artery without angina pectoris; M79.604 Pain in right leg; M79.605 Pain in left leg; R29.898 Other symptoms and signs involving the musculoskeletal system; M48.00 Spinal stenosis, site unspecified; N31.9 Neuromuscular dysfunction of bladder, unspecified; R73.03 Prediabetes; Z99.3 Dependence on wheelchair; Z79.82 Long term (current) use of aspirin; Z79.899 Other long term (current) drug therapy
CPT/HCPCS: 36415; 70450; 71275; 72125; 80048; 80053; 81001; 83690; 84439; 84443; 85025; 85027; 85380; 87077; 87086; 87088; 87186; 93005; 93306; 96361; 96365; 96372; 96375; 97162; 97165; 97535; 99285; A9270; G0378; J0696; J1650; J2405; J7120; Q9967

== ENCOUNTER 2021-09-12 19:48 | Emergency (ER) | payer MEDICARE, MEDICAID, SELFPAY ==
[2021-09-12] VITALS (20 sets, daily range): BP systolic 143–165; BP diastolic 60–85; PULSE 56–77; RESP 9–26; TEMP 36.3; O2SAT 92–100
--- NOTE | ~2021-09-12 | XR_ITS ---
EXAMINATION: XR chest 2V Exam Date/Time: 09/12/2021 20:10 CDT CLINICAL HISTORY: syncope 15-20 SECS,HX HTN,CAD Comparison: 12/16/20, 05/14/09 RESULT: Lines, tubes, and devices: None. Lungs and pleura: Linear scar and/or atelectasis in the lower lungs. Cardiomediastinal silhouette: Stable cardiomediastinal silhouette. Other: No acute osseous or upper abdominal finding. IMPRESSION: No acute cardiopulmonary process. Reviewed, dictated and finalized at location K.
--- NOTE | 2021-09-12 19:52 | ECG_ITS ---
Measurements Intervals [place] Rate: 55 P: -17 WI: 189 QRS: -5 QRSD: 101 T: 48 QT: 430 QTc: 414 Interpretive Statements SINUS BRADYCARDIA Electronically Signed On 09-13-2021 14:26:51 CDT by Miguel Angel Mcgregor M.D.
[2021-09-12 20:11] LABS: Basophils Absolute Auto 0.1 K/mm3 (0.0-0.1); Basophils Percent Auto 0.7 % (0.2-1.2); Eosinophils Absolute Auto 0.3 K/mm3 (0-0.3); Eosinophils Percent Auto 4.4 % (0-4.4); Hematocrit 39.9 % (37.0-47.0); Hemoglobin 12.9 g/dL (12.0-15.0); Immature Granulocyte Absolute 0.02 K/mm3 (0.00-0.031); Immature Granulocyte Percent A 0.3 % (0-0.5); Lymphocytes Absolute Auto 2.13 K/mm3 (0.9-3.2); Lymphocytes Percent Auto 29.5 % (18.3-44.2); Mean Corpuscular HGB Conc 32.3 g/dl (32-36); Mean Corpuscular Hemoglobin 29.4 pg (26-34); Mean Corpuscular Volume 90.9 fl (80-100); Mean Platelet Volume 9.8 fl (7.4-10.4); Monocytes Absolute Auto 0.8 K/mm3 (0.1-0.6); Monocytes Percent Auto 10.8 % (2.6-8.5); Neutrophils Absolute Auto 3.9 K/mm3 (1.3-6.7); Neutrophils Percent Auto 54.3 % (45.5-73.1); Platelet Count Result 226 k/mm3 (150-375); Red Blood Count 4.39 M/mm3 (4.2-5.4); Red Cell Distribution Width 14.9 % (11.5-14.5); White Blood Count 7.2 K/mm3 (4.5-10.0)
[2021-09-12 20:24] LABS: Alanine Aminotransferase 17 U/L (4-35); Albumin Level 4.1 g/dL (3.5-5.1); Alkaline Phosphatase 97 U/L (38-126); Anion Gap 6 mmol/L (8-16); Aspartate Amino Transferase 27 U/L (14-36); Bilirubin,Total 0.4 mg/dL (0.2-1.3); Blood Urea Nitrogen 20 mg/dL (7-17); Carbon Dioxide 28 mmol/L (22-30); Chloride 105 mmol/L (98-107); Estimated CRCL calculation 77 ml/min; Estimated Glomerular Filt Rate > 60; Glucose 123 mg/dL (65-110); Potassium 4.1 mmol/L (3.4-5.0); Sodium 139 mmol/L (137-145)
[2021-09-12] MEDS: MECLIZINE HCL 25 MG TABLET PO (21:02)
[2021-09-12] MEDS: SODIUM CHLORIDE 0.9% IV 1,000 ML 999 ML IV CONT (21:02)
[2021-09-12 22:16] LABS: Add Urine Microscopic? YES; Appearance Urine Cloudy (Clear); Bacteria Urine 1+ /hpf; Bilirubin Urine Negative (Negative); Blood Urine 1+ (Negative); Color Urine Yellow (Yellow); Glucose Urine UA Negative (Negative); Ketones Urine Negative (Negative); Leukocyte Esterase Ur 1+ LEU/UL (Negative); Mucus Urine Rare /lpf; Nitrate Urine Negative (Negative); Protein Urine Negative (Negative); RBC Urine 0-2 /hpf (0-2); Specific Grav Ur 1.015 (1.001-1.035); Squamous Epithelial Cell Urine Rare /hpf (Few); Urobilinogen Urine Negative mg/dL (<2.0); WBC Urine 21-30 /hpf
--- NOTE | 2021-09-12 22:26 | ED.DIZZY ---
HPI - Dizziness General Chief Complaint: Syncope Stated Complaint: syncopal episode at 1900 less than 1 minute Time Seen by Provider: 09/12/21 20:00 History of Present Illness HPI Narrative: Patient is a 71-year-old female who presents ER with dizziness. She reports she was sitting at home when she suddenly felt like everything was moving around her and she might pass out. This is very short-lived and then occurred again. She never lost consciousness or fell. She called for friend to help her. She is feeling nauseated. Patient reports that she has been having some muffled hearing in her ears recently. No sinus congestion or sore throat or cough. Has not had symptoms previously. No weakness in arm or leg. Currently without symptoms. Related Data Home Medications Medication Instructions Recorded Confirmed aspirin 81 mg tablet,delayed 81 mg PO DAILY 08/27/19 04/22/21 release magnesium oxide 400 mg PO EVERY OTHER DAY 02/07/21 04/22/21 losartan 50 mg tablet 50 mg PO DAILY tablet 03/22/21 04/22/21 Allergies Allergy/AdvReac Type Severity Reaction Status Date / Time hydrocodone Allergy Severe SET BODY Verified 09/12/21 19:57 ON FIRE methocarbamol Allergy Mild ?NOT Verified 09/12/21 19:57 FAMILIAR WITH MED. Review of Systems Review of Systems: All systems reviewed & are unremarkable except as noted in HPI and below Constitutional: Constitutional: Denies chills, Denies fever(s) and Denies weakness ENT: Reports dizziness, Denies nasal congestion and Denies sore throat Cardiovascular: Cardiovascular: Denies chest pain, Denies rapid heart rate and Denies radiating jaw, neck or arm pain Respiratory: Respiratory: Denies chest congestion, Denies cough and Denies dyspnea Gastrointestinal: Gastrointestinal: Denies abdominal pain, Reports nausea and Denies vomiting Genitourinary: Genitourinary: Denies nocturia, Denies dysuria and Denies flank pain PMFSH Past Medical History Medical History Abnormal colonoscopy (~2012) polyps removed - repeat 5 yrs CAD (coronary artery disease) Central stenosis of spinal canal Essential (primary) hypertension Hyperlipidemia Hypothyroid Prediabetes Reactive depression Spondylosis of lumbar spine with myelopathy Vitamin D deficiency Surgical History Surgical History History of cholecystectomy (~1971) History of surgery on arm (~1972) History of total left knee replacement (~2010) History of tubal ligation (~1973) Family History Family History Mother Family history of primary malignant neoplasm of liver Father Family history of coronary artery disease Social History Social History Smoking status: Never smoker Alcohol intake: never Substance use: never Gender identity (if verbalized by the patient): Female Spiritual care concerns: No Exam Narrative: GENERAL: Well-appearing, well-nourished, and in no acute distress. HEAD: Normocephalic, atraumatic. EYES: PERRL and EOMI. ENT: Mucous membranes moist. TMs normal in appearance bilaterally. NECK: Supple. CHEST: Clear to auscultation. No respiratory distress. HEART: Regular rate and rhythm. Normal peripheral pulses. ABDOMEN: Soft, nontender, nondistended. SKIN: Warm, dry, no rash. NEURO: Clear speech. No facial droop. Alert and oriented x3. PSYCH: Normal mood and affect. Course Vital Signs Vital signs: Vital Signs Pulse Rate 61 09/12/21 19:50 Respiratory Rate 9 L 09/12/21 19:50 Pulse Oximetry 96 09/12/21 19:50 Temperature 97.3 F L 09/12/21 19:53 Pulse Rate 67 09/12/21 22:51 Respiratory Rate 18 09/12/21 22:51 Blood Pressure 152/60 H 09/12/21 22:51 Pulse Oximetry 97 09/12/21 22:51 MDM - Dizziness Lab Data Result diagrams: 0
== END 2021-09-12 23:25 | disposition home or self-care (01) ==
PROVIDERS: Emergency Provider Emergency Medicine; PCP Family Medicine
DX: R42 Dizziness and giddiness (principal); N39.0 Urinary tract infection, site not specified; I25.10 Atherosclerotic heart disease of native coronary artery without angina pectoris; I10 Essential (primary) hypertension; E78.5 Hyperlipidemia, unspecified; E03.9 Hypothyroidism, unspecified; R73.03 Prediabetes; E55.9 Vitamin D deficiency, unspecified; Z96.652 Presence of left artificial knee joint; Z79.82 Long term (current) use of aspirin; R00.1 Bradycardia, unspecified
CPT/HCPCS: 36415; 51701; 71046; 80053; 81001; 85025; 87077; 87086; 87186; 93005; 99284; A9270; J7030

== ENCOUNTER 2022-02-08 21:51 | Emergency (ER) | payer MEDICARE, MEDICAID, SELFPAY ==
--- NOTE | ~2022-02-08 | CT_ITS ---
EXAMINATION: CT brain wo con DATE: 02/08/2022 22:53 INDICATION: dizziness . TECHNIQUE: Computed tomography (CT) of the head was performed without intravenous contrast. The mA wa s adjusted according to patient size. Iterative reconstruction technique was employed. The dose-lengt h product was 605.33 mGy-cm. COMPARISON: 02/06/2021 FINDINGS: No acute intracranial hemorrhage or extra-axial fluid collection. No hydrocephalus, mass, or herniation. No acute ischemic infarct. Unremarkable dural venous sinus attenuation. No acute osseous abnormality. The aerated spaces are clear. Mild atrophy and chronic white matter change. Atherosclerotic intracranial calcification. IMPRESSION: No acute intracranial process. Reviewed, dictated and finalized at location K.
[2022-02-08 21:55] VITALS: BP 150/124; PULSE 68; RESP 16; TEMP 36.9; O2SAT 96
--- NOTE | 2022-02-08 21:59 | ECG_ITS ---
Measurements Intervals [place] Rate: 70 P: 63 OR: 195 QRS: -9 QRSD: 96 T: 54 QT: 391 QTc: 424 Interpretive Statements SINUS RHYTHM WITH OCCASIONAL SUPRAVENTRICULAR PREMATURE COMPLEXES COMPARED TO ECG 09/12/2021 19:55:04 SINUS RHYTHM NOW PRESENT Electronically Signed On 02-09-2022 19:53:40 CDT by Marisol Cutler M.D.
[2022-02-08 22:05] VITALS: PULSE 67
[2022-02-08 22:20] LABS: Basophils Absolute Auto 0.1 K/mm3 (0.0-0.1); Basophils Percent Auto 1.1 % (0.2-1.2); Eosinophils Absolute Auto 0.3 K/mm3 (0-0.3); Eosinophils Percent Auto 3.8 % (0-4.4); Hematocrit 42.4 % (37.0-47.0); Hemoglobin 13.3 g/dL (12.0-15.0); Immature Granulocyte Absolute 0.03 K/mm3 (0.00-0.031); Immature Granulocyte Percent A 0.4 % (0-0.5); Lymphocytes Absolute Auto 1.89 K/mm3 (0.9-3.2); Lymphocytes Percent Auto 22.9 % (18.3-44.2); Mean Corpuscular HGB Conc 31.4 g/dl (32-36); Mean Corpuscular Hemoglobin 28.9 pg (26-34); Mean Corpuscular Volume 92.2 fl (80-100); Mean Platelet Volume 9.6 fl (7.4-10.4); Monocytes Absolute Auto 0.7 K/mm3 (0.1-0.6); Neutrophils Absolute Auto 5.2 K/mm3 (1.3-6.7); Neutrophils Percent Auto 62.8 % (45.5-73.1); Platelet Count Result 229 k/mm3 (150-375); Red Cell Distribution Width 14.7 % (11.5-14.5); White Blood Count 8.3 K/mm3 (4.5-10.0)
[2022-02-08 22:37] LABS: Alanine Aminotransferase 15 U/L (6-35); Albumin Level 4.3 g/dL (3.5-5.1); Alkaline Phosphatase 91 U/L (38-126); Anion Gap 11 mmol/L (8-16); Aspartate Amino Transferase 28 U/L (14-36); Bilirubin,Total 0.5 mg/dL (0.2-1.3); Blood Urea Nitrogen 21 mg/dL (7-17); Calcium 9.4 mg/dL (8.4-10.2); Carbon Dioxide 27 mmol/L (22-30); Chloride 103 mmol/L (98-107); Estimated CRCL calculation 42 ml/min; Estimated Glomerular Filt Rate 40; Glucose 108 mg/dL (65-110); Potassium 4.5 mmol/L (3.4-5.0); Sodium 141 mmol/L (137-145)
[2022-02-08] MEDS: ONDANSETRON INJ 4 MG/2 ML VIAL IV PUSH (23:06)
[2022-02-08] MEDS: SODIUM CHLORIDE 0.9% IV 1,000 ML 999 ML IV CONT (23:06)
[2022-02-08 23:24] LABS: Magnesium 1.6 mg/dL (1.6-2.3)
[2022-02-08 23:37] LABS: Troponin I < 0.012 ng/mL (0.000-0.034)
[2022-02-08] MEDS: MECLIZINE HCL 25 MG TABLET PO (23:53)
[2022-02-08 23:54] VITALS: PULSE 67; RESP 13; O2SAT 98
[2022-02-09] VITALS (19 sets, daily range): BP systolic 116–138; BP diastolic 71–107; PULSE 55–77; RESP 14–24; O2SAT 89–100
--- NOTE | 2022-02-09 00:34 | ED.GENADULT ---
HPI - General Adult General Chief complaint: Syncope Stated complaint: NEAR SYNCOPE, AFIB Time Seen by Provider: 02/08/22 22:19 History of Present Illness HPI narrative: Patient is a 71-year-old female who presents the emergency department with chief complaint of near syncope. Patient reports that this evening she had an episode where she felt extremely lightheaded and felt as though the room was spinning. Patient denies chest pain denies shortness of breath reports that about a week ago she had some diarrhea and may be slightly dehydrated. Patient states that she had no chest pain no abdominal pain no new vomiting or any diarrhea. Related Data Home Medications Medication Instructions Recorded Confirmed aspirin 81 mg tablet,delayed 81 mg PO DAILY 08/27/19 04/22/21 release magnesium oxide 400 mg PO EVERY OTHER DAY 02/07/21 04/22/21 losartan 50 mg tablet 50 mg PO DAILY 03/22/21 04/22/21 Allergies Allergy/AdvReac Type Severity Reaction Status Date / Time hydrocodone Allergy Severe SET BODY Verified 02/08/22 21:55 ON FIRE methocarbamol Allergy Mild ?NOT Verified 02/08/22 21:55 FAMILIAR WITH MED. Review of Systems Review of Systems: A 10 system review of systems was completed on the patient and is negative except for what is stated in the HPI. Nursing and ancillary documentation was reviewed. [facility] Past Medical History Medical History Abnormal colonoscopy (~2012) polyps removed - repeat 5 yrs CAD (coronary artery disease) Central stenosis of spinal canal Essential (primary) hypertension Hyperlipidemia Hypothyroid Prediabetes Reactive depression Spondylosis of lumbar spine with myelopathy Vitamin D deficiency Surgical History Surgical History History of cholecystectomy (~1971) History of surgery on arm (~1972) History of total left knee replacement (~2010) History of tubal ligation (~1973) Family History Family History Mother Family history of primary malignant neoplasm of liver Father Family history of coronary artery disease Social History Social History Smoking status: Never smoker Alcohol intake: never Substance use: never Gender identity (if verbalized by the patient): Female Spiritual care concerns: No Exam Narrative: GENERAL: Well-appearing, well-nourished, and in no acute distress. HEAD: Normocephalic, atraumatic. EYES: PERRLA and EOMI. ENT: Nares clear, no rhinorrhea or epistaxis. Mucous membranes moist. NECK: Supple. CHEST: Clear to auscultation. No respiratory distress. HEART: Regular rate and rhythm. No murmur heard. Normal peripheral pulses. ABDOMEN: Soft, nontender, nondistended, normal active bowel sounds. EXTREMITIES: Normal range of motion. No edema. SKIN: Warm, dry, no rash. NEURO: No focal deficits. Alert and oriented x3. PSYCH: Normal mood and affect. Course Vital Signs Vital signs: Vital Signs Temperature 36.9 C 02/08/22 21:55 Pulse Rate 68 02/08/22 21:55 Respiratory Rate 16 02/08/22 21:55 Blood Pressure 150/124 H 02/08/22 21:55 Pulse Oximetry 96 02/08/22 21:55 Oxygen Delivery Room Air 02/08/22 21:55 Temperature 36.9 C 02/08/22 21:55 Pulse Rate 70 02/09/22 00:02 Respiratory Rate 18 02/09/22 00:02 Blood Pressure 150/124 H 02/08/22 21:55 Pulse Oximetry 97 02/09/22 00:02 Oxygen Delivery Room Air 02/08/22 21:55 Medical Decision Making Vital Signs Vital Signs: Vital Signs Temperature 36.9 C 02/08/22 21:55 Pulse Rate 68 02/08/22 21:55 Respiratory Rate 16 02/08/22 21:55 Blood Pressure 150/124 H 02/08/22 21:55 Pulse Oximetry 96 02/08/22 21:55 Oxygen Delivery Room Air 02/08/22 21:55 Temperature 36.9 C 02/08/22 21:55 Pulse Rate 70
== END 2022-02-09 03:33 | disposition home or self-care (01) ==
PROVIDERS: Emergency Provider Emergency Medicine; PCP Family Medicine
DX: R42 Dizziness and giddiness (principal); E86.0 Dehydration; I25.10 Atherosclerotic heart disease of native coronary artery without angina pectoris; I10 Essential (primary) hypertension; E78.5 Hyperlipidemia, unspecified; E03.9 Hypothyroidism, unspecified
CPT/HCPCS: 36415; 70450; 80053; 83605; 83735; 84484; 85025; 93005; 96361; 96374; 99284; A9270; J2405; J7030

== ENCOUNTER 2022-09-01 09:21 | Outpatient (CLI) | payer MEDICARE, MEDICAID, SELFPAY ==
--- NOTE | ~2022-09-01 | MR_ITS ---
MRI of the lumbar spine Clinical History: Lower extremity weakness Technique: Axial T2-weighted images, and sagittal T1-weighted, T2-weighted, and T2 fat-sat images wer e acquired. COMPARISON: 07/10/2020 Findings: No acute fracture seen. Grade I anterolisthesis of L4 over L5 is essentially unchanged, mario roximately 5 mm. No suspicious bone marrow signal abnormality identified. At L1-L2, there is facet arthropathy but no significant disc bulge or herniation. No spinal canal cha nosis or neural foraminal narrowing. At L2-L3, there is mild disc bulge with facet arthropathy. No ana maria spinal canal stenosis. There is m oderate right neural foraminal narrowing. Left neural foramen preserved. At L3-L4, there is mild disc bulge with facet arthropathy. No ana maria spinal canal stenosis. There is m ild bilateral neural foraminal narrowing. At L4-L5, disc uncovering and facet arthropathy result in severe spinal canal stenosis/thecal sac com pression focally. There is mild to moderate bilateral neural foraminal narrowing, left worse than rig ht. At L5-S1, there is no significant disc bulge or herniation. There is mild facet arthropathy. No spina l canal stenosis or definite neural foraminal narrowing. Paravertebral soft tissues are unremarkable. Impression: Stable 5 mm anterolisthesis of L4 over L5. Advanced degenerative spondylosis at the L4-L5 level, as detailed above. Mild degenerative spondylosis the remainder of the lumbar spine, as detailed above. Reviewed, dictated and finalized at [facility]. Impression: Stable 5 mm anterolisthesis of L4 over L5. Advanced degenerative spondylosis at the L4-L5 level, as detailed above. Mild degenerative spondylosis the remainder of the lumbar spine, as detailed ab ove.
== END 2022-09-01 09:22 | disposition home or self-care (01) ==
PROVIDERS: PCP Family Medicine; Visit Provider Nurse Practitioner
DX: M47.16 Other spondylosis with myelopathy, lumbar region (principal); R29.898 Other symptoms and signs involving the musculoskeletal system
CPT/HCPCS: 36415; 72148; 80053; 80061; 82306; 82607; 83036; 84439; 84443; 84480; 85025

== ENCOUNTER 2022-09-01 11:01 | Outpatient (CLI) | payer MEDICARE, MEDICAID, SELFPAY ==
[2022-09-01 18:44] LABS: Basophils Absolute Auto 0.1 K/mm3 (0.0-0.1); Basophils Percent Auto 0.7 % (0.2-1.2); Eosinophils Absolute Auto 0.4 K/mm3 (0-0.3); Eosinophils Percent Auto 4.9 % (0-4.4); Hematocrit 40.7 % (37.0-47.0); Hemoglobin 12.9 g/dL (12.0-15.0); Immature Granulocyte Absolute 0.02 K/mm3 (0.00-0.031); Immature Granulocyte Percent A 0.2 % (0-0.5); Lymphocytes Absolute Auto 2.21 K/mm3 (0.9-3.2); Lymphocytes Percent Auto 26.4 % (18.3-44.2); Mean Corpuscular HGB Conc 31.7 g/dl (32-36); Mean Corpuscular Hemoglobin 29.1 pg (26-34); Mean Corpuscular Volume 91.7 fl (80-100); Mean Platelet Volume 10.1 fl (7.4-10.4); Monocytes Absolute Auto 0.7 K/mm3 (0.1-0.6); Monocytes Percent Auto 8.7 % (2.6-8.5); Neutrophils Percent Auto 59.1 % (45.5-73.1); Platelet Count Result 256 k/mm3 (150-375); Red Blood Count 4.44 M/mm3 (4.2-5.4); Red Cell Distribution Width 14.6 % (11.5-14.5); White Blood Count 8.4 K/mm3 (4.5-10.0)
[2022-09-01 19:03] LABS: Vitamin D 25 Hydroxy 30.7 ng/mL
[2022-09-01 19:35] LABS: Anion Gap 8 mmol/L (8-16); Blood Urea Nitrogen 18 mg/dL (7-17); Carbon Dioxide 26 mmol/L (22-30); Chloride 107 mmol/L (98-107); Potassium 4.2 mmol/L (3.4-5.0); Sodium 141 mmol/L (137-145)
[2022-09-01 19:36] LABS: Alanine Aminotransferase 20 U/L (6-35); Alkaline Phosphatase 98 U/L (38-126); Aspartate Amino Transferase 26 U/L (14-36); Bilirubin,Total 0.5 mg/dL (0.2-1.3); Calcium 9.2 mg/dL (8.4-10.2); Cholesterol 123 mg/dL (0-200); Estimated Glomerular Filt Rate > 60; Glucose 86 mg/dL (65-110); HDL Direct 51 mg/dL; Triglycerides 69 mg/dL (<150)
[2022-09-01 19:47] LABS: LDL Cholesterol Direct 47 mg/dL
[2022-09-01 19:53] LABS: Hemoglobin A1C 5.5 % (<5.7)
[2022-09-01 21:04] LABS: Free T4 Free Thyroxine Reflex 1.22 ng/dL (0.78-2.19)
[2022-09-01 21:45] LABS: Total Triiodothyronine (T3) 1.16 NG/ML (0.97-1.69)
== END 2022-09-01 11:02 | disposition home or self-care (01) ==
LOC: ANHGOSHLAB 11:03
PROVIDERS: PCP Family Medicine; Visit Provider Family Medicine
DX: E55.9 Vitamin D deficiency, unspecified (principal); I10 Essential (primary) hypertension; E78.5 Hyperlipidemia, unspecified; N31.9 Neuromuscular dysfunction of bladder, unspecified; E53.8 Deficiency of other specified B group vitamins; R73.03 Prediabetes
CPT/HCPCS: 36415; 80053; 80061; 82306; 82607; 83036; 84439; 84443; 84480; 85025

== ENCOUNTER 2023-11-16 15:19 | Outpatient (CLI) | payer MEDICARE, MEDICAID, SELFPAY ==
--- NOTE | ~2023-11-16 | DEXA_ITS ---
Bone Density Report Name: JADEN WOODS Age: 73 Sex: Female Ethnicity: White Date of : 1950 Indication: postmenopausal; screening for osteoporosis; rheumatoid arthritis; Referring Provider: MALICK FORD Study: Bone densitometry was performed. Exam Date: November 16, 2023 Accession number: [id number] Bone Density: Region BMD T-score Z-score Classification AP Spine(L1, L2, L3) 1.093 0.7 3.1 Normal Femoral Neck (Left) 1.000 1.4 3.5 Normal Total Hip (Left) 0.875 -0.6 1.2 Normal Femoral Neck (Right) 1.217 3.3 5.4 Normal Total Hip (Right) 0.992 0.4 2.2 Normal Total Hip Mean 0.934 -0.1 1.7 Normal World Health Organization criteria for BMD impression classify patients as: Normal (T-score at or above -1.0), Osteopenia (T-score between -1.0 and -2.5), or Osteoporosis (T-score at or below -2.5). 10-year Fracture Risk: FRAX not reported because: All T-scores for Spine Total, Hip Total, Femoral Neck at or above -1.0 Clinical Information Provided by Patient: Has rheumatoid arthritis Has used the following medications: Vitamin D Patient maximum height was 62 No regular weight bearing exercise Onset of menses at age 13 Number of children 2 Impression: The patient has normal bone mass. Discussion: BONE DENSITY IS ABOVE THE MINIMUM DESIRABLE LEVEL AT ALL SKELETAL SITES TESTED. This patient?s bone mineral density is above the minimum desirable level (T-score -1.0 or better) at all sites measured. The patient should follow a healthful lifestyle (good nutrition with adequate calcium and vitamin D, and appropriate weight-bearing exercise). Follow-Up: Consider repeating this study in 5 years or sooner if there is some new clinical indication. Reported by: JOSE on 11/16/2023 4:08:00 PM. Reviewed, dictated and finalized at location [facility]
--- NOTE | ~2023-11-16 | MM_ITS ---
EXAMINATION: MM screening twin BI w burton HISTORY: Screening TECHNIQUE: Craniocaudal and mediolateral oblique 3-D tomosynthesis images were obtained and synthetic 2-D images were generated. CAD analysis was submitted and interpreted. COMPARISON: Comparison to multiple prior studies sequentially, with oldest reviewed study dated 03/12. BREAST PARENCHYMAL COMPOSITION: The breasts are almost entirely fatty. FINDINGS: There is no evidence of suspicious mass, calcification, or architectural distortion to sugg est malignancy in either breast. There has been no suspicious interval change. IMPRESSION: 1. No mammographic evidence of malignancy. 2. Recommend routine screening mammography in one year. BI-RADS Category 1: Negative Reviewed, dictated and finalized at location B.
== END 2023-11-16 15:20 | disposition home or self-care (01) ==
PROVIDERS: PCP Family Medicine; Visit Provider Nurse Practitioner Family
DX: Z12.31 Encounter for screening mammogram for malignant neoplasm of breast (principal); Z78.0 Asymptomatic menopausal state
CPT/HCPCS: 77063; 77067; 77080

== ENCOUNTER 2023-11-24 11:39 | Outpatient (CLI) | payer MEDICARE, MEDICAID, SELFPAY ==
[2023-11-24 13:21] LABS: Hematocrit 39.1 % (37.0-47.0); Hemoglobin 12.5 g/dL (12.0-15.0); Mean Corpuscular Hemoglobin 29.1 pg (26-34); Mean Corpuscular Volume 90.9 fl (80-100); Mean Platelet Volume 10.3 fl (7.4-10.4); Platelet Count Result 229 k/mm3 (150-375); Red Cell Distribution Width 15.5 % (11.5-14.5); White Blood Count 9.8 K/mm3 (4.5-10.0)
[2023-11-24 13:33] LABS: Alanine Aminotransferase 15 U/L (6-35); Albumin Level 4.1 g/dL (3.5-5.1); Alkaline Phosphatase 96 U/L (38-126); Anion Gap 6 mmol/L (4-12); Aspartate Amino Transferase 29 U/L (14-36); Bilirubin,Total 0.7 mg/dL (0.2-1.3); Blood Urea Nitrogen 22 mg/dL (7-17); Calcium 9.4 mg/dL (8.4-10.2); Carbon Dioxide 27 mmol/L (22-30); Chloride 109 mmol/L (98-107); Cholesterol 115 mg/dL (0-200); Estimated Glomerular Filt Rate > 60; Glucose 91 mg/dL (65-110); HDL Direct 54 mg/dL; Potassium 3.7 mmol/L (3.4-5.0); Sodium 142 mmol/L (137-145); Triglycerides 87 mg/dL (<150)
[2023-11-24 13:44] LABS: LDL Cholesterol Direct 46 mg/dL
[2023-11-24 14:34] LABS: Hemoglobin A1C 5.4 % (<5.7)
[2023-11-28 10:59] LABS: Vitamin D 1,25 (OH)2 Total 21 pg/mL (18-72); Vitamin D2 1,25 (OH)2 <8 pg/mL; Vitamin D3 1,25 (OH)2 21 pg/mL
== END 2023-11-24 11:40 | disposition home or self-care (01) ==
LOC: ANHGOSHLAB 11:40
PROVIDERS: PCP Family Medicine; Visit Provider Nurse Practitioner Family
DX: E78.2 Mixed hyperlipidemia (principal); E03.9 Hypothyroidism, unspecified; E66.01 Morbid (severe) obesity due to excess calories; I10 Essential (primary) hypertension; I49.9 Cardiac arrhythmia, unspecified; R82.71 Bacteriuria; E55.9 Vitamin D deficiency, unspecified; R73.03 Prediabetes; F32.9 Major depressive disorder, single episode, unspecified; E53.8 Deficiency of other specified B group vitamins; Z13.29 Encounter for screening for other suspected endocrine disorder
CPT/HCPCS: 36415; 80053; 80061; 82607; 82652; 83036; 84443; 85027

== ENCOUNTER 2024-09-12 19:42 | Emergency (ER) | payer MEDICARE, SELFPAY ==
--- NOTE | ~2024-09-12 | XR_ITS ---
EXAM: XR knee RT 3V DATE: 09/12/2024 21:42 HISTORY: fall/pain . COMPARISON: None available. FINDINGS: Osteopenia. Right total arthroplasty hardware. Mildly comminuted, predominantly oblique di stal right femur fracture with extension of the fracture lines to the femoral component, with 9 mm la teral and 11 mm posterior displacement, suspected lateral rotation, and 21 degrees lateral angulation . IMPRESSION: Angulated and mildly displaced and rotated periprosthetic fracture of the distal right fe mur. Reviewed, dictated and finalized at location K. IMPRESSION: Angulated and mildly displaced and rotated periprosthetic fracture of the distal right femur.
--- NOTE | ~2024-09-12 | XR_ITS ---
Left Knee Technique: AP, lateral, and sunrise views were obtained. Clinical History: Pain Findings: No fracture or dislocation is seen. Prior knee arthroplasty in place. Soft tissues are unre markable. No joint effusion is seen. Impression: No acute abnormality. Left knee arthroplasty in place. Reviewed, dictated and finalized at location . Impression: No acute abnormality. Left knee arthroplasty in place.
--- NOTE | ~2024-09-12 | XR_ITS ---
EXAM: XR shoulder RT min 2V DATE: 09/12/2024 21:42 HISTORY: fall/pain . COMPARISON: None available. FINDINGS: Osteopenia. No fracture or dislocation in the shoulder. Nondisplaced right fifth and sixth posterolateral rib fractures. No lytic or blastic lesion. Moderate AC joint and mild glenohumeral marta int degenerative change. Likely rotator cuff pathology. No erosion or periosteal change. Soft tissues within normal limits. IMPRESSION: No acute osseous finding in the right shoulder. Nondisplaced right fifth and sixth artistic director olateral rib fractures. Reviewed, dictated and finalized at location K. IMPRESSION: No acute osseous finding in the right shoulder. Nondisplaced right fifth and sixth posterolateral rib fractures.
--- NOTE | ~2024-09-12 | CT_ITS ---
EXAMINATION: CT brain wo con DATE: 09/12/2024 23:01 INDICATION: fall with + LOC . TECHNIQUE: Computed tomography (CT) of the head was performed without intravenous contrast. The mA wa s adjusted according to patient size. Iterative reconstruction technique was employed. The dose-lengt h product was 681.00 mGy-cm. COMPARISON: 02/08/2022. FINDINGS: No acute intracranial hemorrhage or extra-axial fluid collection. No hydrocephalus, mass, or herniation. No acute ischemic infarct. Unremarkable dural venous sinus attenuation. No acute osseous abnormality. Minimal left mastoid fluid, the remaining aerated spaces are clear. Mild atrophy and chronic white matter change. Atherosclerotic intracranial calcification. Bilateral l ens replacements. IMPRESSION: No acute intracranial process. Reviewed, dictated and finalized at location K.
--- NOTE | ~2024-09-12 | XR_ITS ---
EXAM: XR ankle RT 2V DATE: 09/12/2024 21:42 HISTORY: fall/pain . COMPARISON: None available. FINDINGS: Osteopenia. No fracture or dislocation. No lytic or blastic lesion. Scattered degenerative changes. Achilles and plantar enthesopathy. No erosion or periosteal change. Soft tissues within nor mal limits. IMPRESSION: No acute osseous finding in the right ankle. Reviewed, dictated and finalized at location K.
--- NOTE | ~2024-09-12 | XR_ITS ---
EXAM: XR hip BI 2V w AP pelvis DATE: 09/12/2024 21:42 HISTORY: bilateral hip pain . COMPARISON: X-ray left hip 07/07/2005; CT abdomen pelvis 05/19/2016. FINDINGS: Examination limited by body habitus and difficulty positioning due to a right knee fractur e. Osteopenia. Severe degenerative changes in the lower lumbar spine. Severe bilateral hip arthritis, with femoral head remodeling and bilateral acetabular protrusio. No definite fracture or dislocation . IMPRESSION: No acute osseous finding in the pelvis or bilateral hips. Reviewed, dictated and finalized at location K.
--- NOTE | ~2024-09-12 | XR_ITS ---
EXAMINATION: XR chest 1V Exam Date/Time: 09/12/2024 21:00 CDT HISTORY: fall/left rib pain Comparison: 09/12/2021. RESULT: Lines, tubes, and devices: None. Lungs and pleura: No lobar consolidation, large pleural effusion, or pneumothorax. Linear and subseg mental right basilar opacities. Right hemidiaphragm elevation. Minimal right costophrenic angle blunt ing. Cardiomediastinal silhouette: Stable. Other: No acute upper abdominal finding. The nondisplaced right fifth and sixth posterolateral rib f ractures were better seen in the concurrent shoulder radiographs. No additional fractures identified. IMPRESSION: Nondisplaced right fifth and sixth posterolateral rib fractures, better seen in the concurrent should er radiograph. Subsegmental right basilar atelectasis/consolidation and right hemidiaphragm elevation . Possible trace right pleural effusion. Reviewed, dictated and finalized at location K. IMPRESSION: Nondisplaced right fifth and sixth posterolateral rib fractures, better seen in the concurrent shoulder radiograph. Subsegmental right basilar atelectasis/con solidation and right hemidiaphragm elevation. Possible trace right pleural effu katlyn.
[2024-09-12 19:40] VITALS: BP 129/66; PULSE 98; RESP 20; TEMP 36.6; O2SAT 99
[2024-09-12 19:58] VITALS: BP 129/66; PULSE 90; RESP 18; O2SAT 97
--- OUTSIDE RECORDS SUMMARY | 2024-09-12 20:32 | XMS_ITS | Clinical Summary ---
Author Organization [facility] [employer] [employer] Address [address] [place] [address] Care Team Providers Care Direct Marketing Specialist Name Role Phone Georgiana Saucedo MD Primary Care Provider [phone] Source Comments [facility] [employer],non-owned Affiliates and Associated Physician Practices is amultiple site organization consisting of ambulatory clinics and hospital sitesin [place], [place], [place] and [place]. This disclosure is being madepursuant to the Care Everywhere program and may not contain all information available regarding this patient. Last updated 18.[employer] Allergies No known active allergies Medications Be aware that medications may not be up to date on this document. Always verify current medications with the patient. No known medications Active Problems No known active problems Social History Tobacco Use Types Packs/Day Years Used Date Smoking Tobacco: Never Smokeless Tobacco: Never Alcohol Use Standard Drinks/Week Comments Never 0 (1 standard drink = 0.6 oz pur e alcohol) Sex and Gender Information Value Date Recorded Sex Assigned at Not on file Gender Identity Not on file Sexual Orientation Not on file Last Filed Vital Signs Vital Sign Reading Time Taken Comments Blood Pressure - - Pulse - - Temperature - - Respiratory Rate - - Oxygen Saturation - - Inhaled Oxygen Concentration - - Weight 117.9 kg (260 lb) 08/13/2021 2:44 PM [employer] Height 157.5 cm (5' 2 ) 08/13/2021 2:44 PM [employer] Body Mass Index 47.55 08/13/2021 2:44 PM [employer] Plan of Treatment Health Maintenance Due Date Last Done Comments BONE DENSITY TESTING 1950 COLOGUARD (AGES 45-75) - COL ON CA SCREENING 1950 COLON MONITORING 1950 COLONOSCOPY - COLON CA SCREENING 1950 CT COLONOGRAPHY - COLON CA SCREENING 1950 Colorectal Cancer Screening 1950 FIT - COLON CA SCREENING 1950 FLEX SIG - COLON CA SCREENING 1950 LIPID TESTING 1950 MAMMOGRAM 1950 HEPATITIS C SCREENING 08/26/1966 DTAP/TDAP/TD VACCINES (1 - Tdap) 08/31/1967 PNEUMOCOCCAL VACCINE 50+ (1 of 1 - PCV) 1998 ZOSTER VACCINE (1 of 2) 1998 Respiratory Syncytial Virus (RSV) Vaccine Pt: or over 60 yrs (1 - 1-dose 75+ series) 08/31/2023 COVID-19 VACCINE ( - 2023-2 5 season) 2024 INFLUENZA VACCINE (#1) 2024 DEPRESSION SCREENING 06/12/2024 MEDICARE AWV CALENDAR YEAR 2024 HEPATITIS B VACCINE Aged Out No longe r eligible based on patient's age to complete this topic HIB VACCINE Aged Out No longer eligi ble based on patient's age to complete this topic HPV VACCINE Aged Out No longer eligi ble based on patient's age to complete this topic MENINGOCOCCAL (Group B) VACC INE SHARED DECISION-MAKING Aged Out No longer eligibl e based on patient's age to complete this topic MENINGOCOCCAL GROUPS A/C/Y/W VACCINE Aged Out No longer eligible b ased on patient's age to complete this topic Care Teams Direct Marketing Specialist Relationship Specialty Start Date End Date Georgiana Saucedo MD [address] [place] [phone] PCP - General 05/14/18
--- OUTSIDE RECORDS SUMMARY | 2024-09-12 20:32 | XMS_ITS | CONTINUITY OF CARE DOCUMENT ---
Author Name stephanie, stephanie Address Unknown Organization [facility] Address [address] [place] [address] Phone [phone] Care Team Providers Care Control Panel Assembler Name Role Phone Ankur Rubio MD Unavailable [phone] Felicity Drake MD Unavailable [phone] Felicity Drake MD Unavailable [phone] PROBLEMS Condition Status Date Provider Notes IRON DEFICIENCY active Ankur Rubio MD Vitamin D deficiency active Ankur Bowen Diastolic CHF active Ankur Rubio MD CAD active Ankur Rubio MD neg cheryl otid Obesity active Ankur Rubio MD gpl1 not covred Cholecystectomy completed - Ankur Rubio MD FAMILY HISTORY OF HEART DISEASE active Ankur Rubio MD Sleep apnea active Ankur Rubio MD r/o Pulmonary embolism and infarction; completed - Ankur Rubio MD neg ct 15 and 16 with pos ddimer Screening active Ankur Rubio MD hx of Syncope completed - Ankur Rubio MD HTN essential active Ankur Rubio MD PREDIABETES; active Ankur Rubio MD did no t chao metofome Pulmonary hypertension completed 8 - Ankur Rubio MD Venous insufficiency active Ankur Bowen SVT and apcs and brief afib;on tsh rx active Ankur Rubio MD Hypercholesterolemia active Sofia Christianson lder Hypothyroidism active Ankur Rubio MD fatty liver active Ankur Rubio MD neg hep screen Ectopic Arrhythmia completed - Ankur Rubio MD Leg pain completed - Ankur Rubio MD ? Claudication, intermittent completed 201 01/12/28 - Ankur Rubio MD Neuropathy active Ankur Rubio MD Dizziness completed - Ankur Rubio MD covid 19;pos igg active Ankur Rubio MD Bladder disorder active Ankur Rubio MD ENCOUNTERS Date Type Provider Location Encounter Diag nosis - In-person encounter Office Visit Ankur Rubio MD [facility] Obesity - In-person encounter Office Visit Ankur Rubio MD [facility] PREDIABETES;Bladder disorder - In-person encounter Office Visit Ankur Rubio MD [facility] covid 19;pos igg - In-person encounter Office Visit Ankur Rubio MD [facility] Cholecystectomyr/o Pulmonary embolism and infarction;hx of SyncopeSVT and apcs and brief afib;on tsh rxDizziness - In-person encounter Office Visit Thomas Hernandez MD [facility] - In-person encounter Office Visit Efren Byers MD [facility] - In-person encounter Office Visit Ankur Rubio MD [facility] ? Claudication, intermittent - In-person encounter Office Visit Ankur Rubio MD [facility] ScreeningHTN essentialLeg painNeuropathy - In-person encounter Office Visit Efren Byers MD [facility] - In-person encounter Office Visit Ankur Rubio MD [facility] ScreeningHTN essentialPulmonary hypertensionSVT and apcs and brief afib;on tsh rxEctopic Arrhythmia - In-person encounter Office Visit Ankur Rubio MD [facility] CADSleep apneaScreeningfatty liver - In-person encounter Office Visit Ankur Rubio MD [facility] Diastolic CHFCADScreening - In-person encounter Office Visit Ankur Rubio MD [facility] CADhx of SyncopeVenous insufficiencySVT and apcs and brief afib;on tsh rxHypercholesterolemiaHypothyroidism - In-person encounter Office Visit Ankur Rubio MD [facility] Diastolic CHFCADObesityFAMILY HISTORY OF HEART DISEASESleep apnear/o Pulmonary embolism and infarction;Screeninghx of Syncope VITAL SIGNS Date Observation Value Provider pulse rate 80 /min [facility] blood pressure, cuff size large [facility] blood pressure, diastolic 90 mm[Hg] [facility] mm[Hg] [facility] oxygen saturation, oximetry 96 % respiratory rate E&M 14 /min Burt height E&M 62 [in_i] Burt y oxygen saturation, oximetry 99 % Shay Cherry RN blood pressure, diastolic 90 mm[Hg] Ramo Cherry RN blood pressure, systolic 182 mm[Hg] Shay Cherry RN pulse rate 80 /min Shay Cherry RN respiratory rate E&M 20 /min Shay ross RN height E&M 62 [in_i] Shay Cherry RN height in centimeters E&M 157.48 cm Ramo Cherry RN Body Mass Index (Ratio) 51.21 kg/m2 Ric Rubio MD blood pressure, cuff size regular Fa ith [place] blood pressure, diastolic 76 mm[Hg] Fa joshua [place] blood pressure, systolic 140 mm[Hg] Phil robert [place] weight E&M 280 [lb_av] Sharlene [place] pulse rate 75 /min Sharlene Washington oxygen saturation, oximetry 96 % [facility] respiratory rate E&M 14 /min Sharlene Root [facility] height E&M 62 [in_i] [facility] Body Mass Index (Ratio) 51.21 kg/m2 Ric Rubio MD blood pressure, diastolic 88 mm[Hg] Rh onmilla Medina blood pressure, systolic 140 mm[Hg] Rho angel Medina oxygen saturation, oximetry 95 % Maria A Medina pulse rate 76 /min Maria A Medina weight E&M 280 [lb_av] Maria A Medina respiratory rate E&M 18 /min Maria A Medina blood pressure, resting Yes Ximena Fernandez blood pressure, cuff size regular Rh shelby Medina height E&M 62 [in_i] Maria A Medina Body Mass Index (Ratio) 49.93 kg/m2 Ric Rubio MD temperature E&M 97.3 [degF] Tati Puhs e blood pressure, diastolic 82 mm[Hg] Br ittany Block blood pressure, systolic 138 mm[Hg] Sunitha ttany Block pulse rate 74 /min Marcia Block oxygen saturation, oximetry 96 % Marcia Block weight E&M 273 [lb_av] Marcia Block blood pressure, resting Yes Brit mejia Block respiratory rate E&M 16 /min Brittan y Block height E&M 62 [in_i] Marcia Block Body Mass Index (Ratio) 50.48 kg/m2 Ke da [employer] REPRESENTATIVE blood pressure, diastolic 88 mm[Hg] Da albert Kevin blood pressure, systolic 142 mm[Hg] Dac ia Kevin oxygen saturation, oximetry 96 % Mayuri Kevin respiratory rate E&M 18 /min Mayuri V oss pulse rate 69 /min Mayuri Kevin weight E&M 276 [lb_av] Mayuri Kevin height E&M 62 [in_i] Mayuri Kevin Body Mass Index (Ratio) 51.28 kg/m2 Reese Byers MD blood pressure, diastolic 85 mm[Hg] Melany Staley blood pressure, systolic 158 mm[Hg] Emma Staley oxygen saturation, oximetry 98 % Kassandra Staley respiratory rate E&M 20 /min Dell Brandtenson pulse rate 68 /min Kassandra Ferrer [facility] weight E&M 280.4 [lb_av] Kassandra Brandt on height E&M 62 [in_i] Kassandra Ferrer [facility] Body Mass Index (Ratio) 51.94 kg/m2 Ric Rubio MD blood pressure, diastolic 82 mm[Hg] Melany Staley blood pressure, systolic 145 mm[Hg] Emma Staley oxygen saturation, oximetry 97 % Kassandra Staley respiratory rate E&M 18 /min Dell Staley pulse rate 68 /min Kassandra Nabil yuliet weight E&M 284 [lb_av] Kassandra Ferrer on height E&M 62 [in_i] Kassandra Ferrer yuliet Body Mass Index (Ratio) 51.83 kg/m2 Ric Rubio MD blood pressure, diastolic 81 mm[Hg] Melany Staley blood pressure, systolic 160 mm[Hg] Emma Staley oxygen saturation, oximetry 97 % Kassandra Staley respiratory rate E&M 20 /min Dell Staley pulse rate 82 /min Kassandra horvath weight E&M 283.4 [lb_av] Kassandra coker height E&M 62 [in_i] Kassandra horvath Body Mass Index (Ratio) 51.65 kg/m2 Reese Byers MD blood pressure, diastolic 91 mm[Hg] Melany Staley blood pressure, systolic 176 mm[Hg] Emma Staley oxygen saturation, oximetry 97 % Kassandra Staley respiratory rate E&M 20 /min Dell Staley pulse rate 78 /min Kassandra horvath weight E&M 282.4 [lb_av] aKssandra coker height E&M 62 [in_i] Kassandra horvath Body Mass Index (Ratio) 52.93 kg/m2 Ric Rubio MD blood pressure, cuff size large In nda Salazar blood pressure, diastolic 78 mm[Hg] In nda Salazar blood pressure, systolic 120 mm[Hg] [facility] da Salazar oxygen saturation, oximetry 98 % Lia Salazar respiratory rate E&M 14 /min Lia H arper pulse rate 69 /min Lia Salazar weight E&M 289.4 [lb_av] Lia Salazar height E&M 62 [in_i] Lia Salazar blood pressure, diastolic 90 mm[Hg] Raheel Curtis blood pressure, systolic 160 mm[Hg] Patrick Curtis pulse rate 67 /min Sofia mujica oxygen saturation, oximetry 94 % Sofia Ever respiratory rate E&M 16 /min Sofia Erazo emeka Body Mass Index (Ratio) 54.32 kg/m2 Jessica alba Ever weight E&M 297 [lb_av] Sofia Sammy elderer blood pressure, diastolic 87 mm[Hg] Melany Tanya Staley blood pressure, systolic 142 mm[Hg] Emma Sarah Staley pulse rate 71 /min Kassandra dorseyon oxygen saturation, oximetry 95 % Kassandra Staley respiratory rate E&M 18 /min Dell Staley Body Mass Index (Ratio) 53.62 kg/m2 Odalis Staley weight E&M 293.2 [lb_av] Kassandra Brandt enson blood pressure, diastolic 81 mm[Hg] Melany Tanya Staley blood pressure, systolic 151 mm[Hg] Emma Sarah Staley pulse rate 75 /min Kassandra dorseyon oxygen saturation, oximetry 97 % Kassandra Staley respiratory rate E&M 18 /min Dell Staley Body Mass Index (Ratio) 54.17 kg/m2 Odalis Staley weight E&M 296.2 [lb_av] Kassandra Rikki enson blood pressure, diastolic 90 mm[Hg] Melany Tanya Staley blood pressure, systolic 156 mm[Hg] Emma Staley Body Mass Index (Ratio) 53.66 kg/m2 DorinaTatum Staley pulse rate 71 /min Kassandra Brandte nson oxygen saturation, oximetry 96 % Kassandra Staley respiratory rate E&M 18 /min Dell tSaley weight E&M 293.4 [lb_av] Kassandra coker height E&M 62 [in_i] Kassandra Ferrer nslaura ALLERGIES Allergy Name Onset Date Reaction Criticality Status GLUCOPHAGE Low Criticality active DYE Low Criticality active RESULTS Date Observation Value Provider Reference Range Interpretation Location hemoglobin A1C, blood, as % of total hemoglobin 5.8 % [facility] 4.8-5.6 High hepatitis B core IgG, serum Negative [facility] Negative HBsAg - Confirmation Negative [facility] Negative hepatitis A antibody, IgM Negative [facility] Negative calcium, serum 9.6 mg/dL [facility] 8.7-10.3 carbon dioxide, venous blood 22 mmol/L [facility] 20-29 chloride, serum 106 mmol/L [facility] 96-106 potassium, serum 4.5 mmol/L [facility] 3.5-5.2 sodium, serum 141 mmol/L [facility] [phone]/04/ 15 urea nitrogen/creatinine ratio, serum 16 [facility] 12-28 eGFR if 84 mL/min/{1.7 3_m2} [facility] >59 eGFR if not 73 mL/min/{1.7 3_m2} [facility] >59 creatinine, serum 0.81 mg/dL [facility] 0.57-1.00 urea nitrogen, blood 13 mg/dL [facility] 8-27 blood glucose, random 94 mg/dL [facility] 65-99 alanine aminotransferase (SGPT), serum 16 1/L [facility] 0-32 aspartate aminotransferase (SGOT), serum 22 1/L [facility] 0-40 alkaline phosphatase, serum 99 1/L [facility] 39-117 bilirubin, serum, total 0.5 mg/dL [facility] 0.0-1.2 albumin/globulin ratio, serum 1.5 [facility] 1.2-2.2 globulin, serum 3.0 [facility] 1.5-4.5 albumin, serum 4.5 g/dL [facility] 3.7-4.7 protein, total, serum 7.5 g/dL [facility] 6.0-8.5 calcium, serum 10.1 mg/dL [facility] 8.7-10.3 carbon dioxide, venous blood 25 mmol/L [facility] 20-29 chloride, serum 102 mmol/L [facility] 96-106 potassium, serum 5.6 mmol/L [facility] 3.5-5.2 High sodium, serum 143 mmol/L [facility] [phone]/04/ 16 urea nitrogen/creatinine ratio, serum 19 [facility] 12-28 eGFR if 67 mL/min/{1.7 3_m2} [facility] >59 eGFR if not 58 mL/min/{1.7 3_m2} [facility] >59 Low creatinine, serum 0.98 mg/dL [facility] 0.57-1.00 urea nitrogen, blood 19 mg/dL [facility] 8-27 blood glucose, random 123 mg/dL [facility] 65-99 High ferritin, serum 282 ng/mL [facility] 15-150 High iron saturation percent, serum 23 % [facility] 15-55 iron, serum 64 ug/dL [facility] 27-139 iron binding capacity, unsaturated 214 ug/dL [facility] [phone]/04/ 16 iron binding capacity, total 278 ug/dL [facility] [phone]/04/ 16 lipoprotein, beta, serum, point, quantitative, calculated 39 mg/dL [facility] 0-99 very low density lipoproteins 21 mg/dL [facility] 5-40 HDL cholesterol, serum 59 mg/dL [facility] >39 triglyceride, serum, random 104 mg/dL [facility] 0-149 cholesterol, serum 119 mg/dL [facility] [phone]/04/ 16 basophil count, absolute 0.1 x10E3/uL [facility] 0.0-0.2 Eosinophil Absolute Count 0.5 X10E3/UL [facility] 0.0-0.4 High monocyte count, blood, automated 0.8 X10E3/UL [facility] 0.1-0.9 lymphocyte count, blood, automated 1.6 X10E3/UL [facility] 0.7-3.1 Absolute Neutrophils 5.0 X10E3/UL [facility] 1.4-7.0 basophils as percent of blood leukocytes 1 % [facility] Not Estab. eosinophils as percent of blood leukocytes 6 % [facility] Not Estab. monocytes as percent of blood leukocytes 10 % [facility] Not Estab. lymphocytes as percent of blood leukocytes 21 % [facility] Not Estab. neutrophils as percent of blood leukocytes 62 % [facility] Not Estab. platelet count 278 X10E3/UL [facility] [phone]/04/ 16 red blood cell distribution width 13.7 % [facility] 11.7-15.4 mean corpuscular hemoglobin concentration, RBC 31.0 G/DL [facility] 31.5-35.7 Low mean corpuscular hemoglobin, RBC 27.9 pg [facility] 26.6-33.0 mean corpuscular volume, RBC 90 fL [facility] 79-97 hematocrit, blood 43.2 % [facility] 34.0-46.6 hemoglobin, blood 13.4 g/dL [facility] 11.1-15.9 erythrocyte (RBC) count 4.80 X10E6/UL [facility] 3.77-5.28 leukocyte count, blood 8.0 X10E3/UL [facility] 3.4-10.8 pro brain natriuretic peptide 239 pg/mL [facility] 0-301 microalbumin/creatin ine ratio, urine 24.8 MG/G CREAT [facility] 0.0-30.0 microalbumin, random, urine 2.25 mg/dL [facility] Units converted. See lab report for original value. creatinine, random, urine 90.7 mg/dL [facility] Not Estab. hemoglobin A1C, blood, as % of total hemoglobin 5.5 % [facility] 4.8-5.6 iron saturation percent, serum 19 % [facility] 15-55 iron, serum 58 ug/dL [facility] 27-139 iron binding capacity, unsaturated 242 ug/dL [facility] 260-070 3238/03/ 21 iron binding capacity, total 300 ug/dL [facility] 280-189 6166/03/ 21 free thyroxine index 1.8 [facility] 1.2-4.9 triiodothyronine resin uptake 25 % [facility] 24-39 thyroxine, serum, total 7.1 ug/dL [facility] 4.5-12.0 thyroid stimulating hormone, serum 4.680 u[IU]/mL [facility] 0.450-4.500 High lipoprotein, beta, serum, point, quantitative, calculated 58 mg/dL [facility] 0-99 very low density lipoproteins 15 mg/dL [facility] 5-40 HDL cholesterol, serum 56 mg/dL [facility] >39 triglyceride, serum, random 77 mg/dL [facility] 0-149 cholesterol, serum 129 mg/dL [facility] [phone]/03/ 21 basophil count, absolute 0.0 x10E3/uL [facility] 0.0-0.2 Eosinophil Absolute Count 0.3 X10E3/UL [facility] 0.0-0.4 monocyte count, blood, automated 0.7 X10E3/UL [facility] 0.1-0.9 lymphocyte count, blood, automated 1.8 X10E3/UL [facility] 0.7-3.1 Absolute Neutrophils 4.6 X10E3/UL [facility] 1.4-7.0 basophils as percent of blood leukocytes 1 % [facility] Not Estab. eosinophils as percent of blood leukocytes 4 % [facility] Not Estab. monocytes as percent of blood leukocytes 9 % [facility] Not Estab. lymphocytes as percent of blood leukocytes 24 % [facility] Not Estab. neutrophils as percent of blood leukocytes 62 % [facility] Not Estab. platelet count 253 X10E3/UL [facility] [phone]/03/ 21 red blood cell distribution width 15.2 % [facility] 12.3-15.4 mean corpuscular hemoglobin concentration, RBC 33.0 G/DL [facility] 31.5-35.7 mean corpuscular hemoglobin, RBC 28.8 pg [facility] 26.6-33.0 mean corpuscular volume, RBC 87 fL [facility] 79-97 hematocrit, blood 40.3 % [facility] 34.0-46.6 hemoglobin, blood 13.3 g/dL [facility] 11.1-15.9 erythrocyte (RBC) count 4.62 X10E6/UL [facility] 3.77-5.28 leukocyte count, blood 7.4 X10E3/UL [facility] 3.4-10.8 alanine aminotransferase (SGPT), serum 12 1/L [facility] 0-32 aspartate aminotransferase (SGOT), serum 18 1/L [facility] 0-40 alkaline phosphatase, serum 87 1/L [facility] 39-117 bilirubin, serum, total 0.4 mg/dL [facility] 0.0-1.2 albumin/globulin ratio, serum 1.4 [facility] 1.2-2.2 globulin, serum 2.9 [facility] 1.5-4.5 albumin, serum 4.2 g/dL [facility] 3.6-4.8 protein, total, serum 7.1 g/dL [facility] 6.0-8.5 calcium, serum 9.3 mg/dL [facility] 8.7-10.3 carbon dioxide, venous blood 23 mmol/L [facility] 18-29 chloride, serum 103 mmol/L [facility] 96-106 potassium, serum 4.7 mmol/L [facility] 3.5-5.2 sodium, serum 143 mmol/L [facility] 750-404 7471/03/ 21 urea nitrogen/creatinine ratio, serum 21 [facility] 12-28 eGFR if 90 mL/min/{1.7 3_m2} [facility] >59 eGFR if not 78 mL/min/{1.7 3_m2} [facility] >59 creatinine, serum 0.78 mg/dL [facility] 0.57-1.00 urea nitrogen, blood 16 mg/dL [facility] 8-27 blood glucose, random 94 mg/dL [facility] 65-99 ferritin, serum 169 ng/mL [facility] 15-150 High B-12, serum 477 pg/mL [facility] [phone] rapid plasma reagin antibody screen Non Reactive [facility] Non Reactive prothrombin time (patient) 10.4 s [facility] 9.1-12.0 international normalized ratio (INR) 1.0 [facility] 0.8-1.2 free thyroxine index 7.2 ??g/dL [facility] 4.4 - 11.4 triiodothyronine uptake 1.1 TBI [facility] 0.8 - 1.3 thyroxine, serum, total 7.9 ??G/DL [facility] 4.5 - 11.7 thyroid stimulating hormone, serum 3.660 ??IU/ML [facility] 0.270 - 4.200 pro brain natriuretic peptide 265.2 pg/mL [facility] 0.0 - 125.0 High red blood cell distribution width, size [facility] granulocytes, percentage of total cells, blood 0.7 % [facility] - nucleated red blood cells as percent of blood leukocytes 0.0 % [facility] - red blood cell (erythrocyte) count, per high power field 0.0 10*3/UL [facility] - eosinophils as percent of blood leukocytes 2.7 % [facility] - neutrophils as percent of blood leukocytes 57.1 % [facility] - Absolute Neutrophils 4.8 CELLS/UL [facility] 1.5 - 7.8 basophils as percent of blood leukocytes 1.1 % [facility] - Absolute Basophils 0.1 CELLS/UL [facility] 0.0 - 0.2 monocytes as percent of blood leukocytes 8.9 % [facility] - Absolute Monocytes 0.8 CELLS/UL [facility] 0.2 - 1.0 lymphocytes as percent of blood leukocytes 29.5 % [facility] - Absolute Lymphocytes 2.5 CELLS/UL [facility] 0.9 - 3.9 mean platelet volume 10.7 (?) [facility] - platelet count 250.0 THOUSAND/UL [facility] 100.0 - 400.0 mean corpuscular hemoglobin concentration, RBC 31.2 G/DL [facility] 31.0 - 38.0 mean corpuscular hemoglobin, RBC 28.3 pg [facility] 25.0 - 35.0 mean corpuscular volume, RBC 90.8 fL [facility] 75.0 - 100.0 hematocrit, blood 44.2 % [facility] 35.0 - 55.0 hemoglobin, blood 13.8 g/dL [facility] 11.5 - 16.5 erythrocyte count, whole blood 4.9 MILLION/UL [facility] 3.5 - 5.5 hemoglobin A1C, blood, as % of total hemoglobin 5.9 % [facility] 4.0 - 6.0 vitamin b12, serum 482.8 pg/mL [facility] 211.0 - 946.0 pro brain natriuretic peptide 249.9 pg/mL [facility] 0.0 - 125.0 High free thyroxine index 4.8 ??g/dL [facility] 4.4 - 11.4 triiodothyronine uptake 1.2 TBI [facility] 0.8 - 1.3 thyroxine, serum, total 5.7 ??G/DL [facility] 4.5 - 11.7 thyroid stimulating hormone, serum 4.850 ?IU/ML [facility] 0.270 - 4.200 High anion gap, serum 14.3 [facility] - albumin/globulin ratio, serum 2.5 g/dL [facility] 1.1 - 2.5 globulin, serum 3.4 [facility] 2.3 - 3.8 urea nitrogen/creatinine ratio, serum 12.2 [facility] - Estimated Glomerular Filtration Rate (calc) 66.6 (?) [facility] 59.0 - chloride, serum 105.7 mmol/L [facility] 98.0 - 107.0 potassium, serum 4.7 mmol/L [facility] 3.5 - 5.1 sodium, serum 146.0 mmol/L [facility] 136.0 - 145.0 High creatine, serum 0.9 mg/dL [facility] 0.5 - 0.9 carbon dioxide, venous blood 26.0 mmol/L [facility] 23.0 - 31.0 albumin, serum 4.4 g/dL [facility] 3.5 - 5.2 calcium, serum 9.9 mg/dL [facility] 8.6 - 10.2 aspartate aminotransferase (SGOT), serum 20.0 1/L [facility] 0.0 - 32.0 alkaline phosphatase, serum 82.0 1/L [facility] 40.0 - 130.0 alanine aminotransferase (SGPT), serum 16.0 1/L [facility] 0.0 - 33.0 protein, total, serum 7.8 g/dL [facility] 6.6 - 8.7 urea nitrogen, blood 11.0 mg/dL [facility] 8.0 - 23.0 Glucose Urine 90.0 mg/dL [facility] 74.0 - 99.0 bilirubin, serum, total 0.3 mg/dL [facility] 0.0 - 1.2 activated partial thromboplastin time 33.3 SECONDS [facility] 23.0 - 33.0 High prothrombin time (patient) 10.4 s [facility] 9.0 - 11.5 international normalized ratio (INR) 1.0 [facility] 0.9 - 1.1 very low density lipoproteins 29.6 mg/dL [facility] 5.0 - 40.0 LDL/HDL (low-density lipoprotein/high-den sity lipoprotein) ratio 2.2 RATIO [facility] - HDL cholesterol, serum 57.0 mg/dL [facility] 45.0 - 65.0 sum total cholesterol 212.0 mg/dL [facility] 0.0 - 200.0 High Triglycerides-direct 148.0 mg/dL [facility] 0.0 - 150.0 HISTORY OF MEDICATION USE Medication Status Instructions Dates Provider Indications Com ments Jardiance 10 mg tablet active TAKE 1 TABLET BY MOUTH DAILY 09/09 Martha Rushing Jardiance 10 mg tablet completed Take 1 tablet by mouth once a day 07/29 - 09/09 Martha Rushing Jardiance 10 mg tablet completed TAKE 1 TABLET BY MOUTH ONCE DAILY 11/08 - 07/29 Sofia Cutris cholecalciferol (vitamin D3) 125 mcg (5,000 unit) tablet active TAKE 1 TABLET BY MOUTH ONCE A DAY 11/08 Ankur Rubio MD cholecalciferol (vitamin D3) 125 mcg (5,000 unit) tablet completed tablet by mouth once a day 11/08 - 11/08 Ankur Rubio MD aspirin 81 mg tablet,delayed release (DR/EC) active TAKE ONE TABLET BY MOUTH DAILY 06/20 Oma Escobedo sertraline 100 mg tablet active Vero Romero NP aspirin 81 mg tablet,delayed release (DR/EC) completed Take 1 tablet by mouth once a day TAKE 1 TABLET BY MOUTH ONCE DAILY 07/26 - 06/20 Oma Escobedo losartan 100 mg tablet active TAKE 1 TABLET BY MOUTH DAILY 01/20 Gabriella Kasper levothyroxine 50 mcg tablet active TAKE 1 TABLET BY MOUTH DAILY 01/11 Rose Dickey aspirin 81 mg tablet,delayed release (DR/EC) completed TAKE 1 TABLET BY MOUTH ONCE DAILY 01/11 - 07/10 Vero Romero NP atorvastatin 40 mg tablet completed TAKE 1 TABLET BY MOUTH DAILY 11/30 - 07/10 Vero Romero NP ezetimibe 10 mg tablet active TAKE 1 TABLET BY MOUTH DAILY 11/30 Sofia Curtis losartan 50 mg tablet completed TAKE 2 TABLETS BY MOUTH DAILY 10/25 - 01/20 Chastity Noble losartan 50 mg tablet completed TAKE 2 TABLETS BY MOUTH DAILY 10/25 - 01/20 Chastity Noble losartan 50 mg tablet completed TAKE 2 TABLETS BY MOUTH DAILY 10/25 - 01/20 Chastity Noble HYDROCHLOROTHIAZIDE 25 MG ORAL TABLET completed ONE TAB DAILY 09/24 - 09/23 Maria A Medina NITROFURANTOIN MONOHYD MACRO 100 MG ORAL CAPSULE completed TK 1 C PO BID 09/20 - 09/23 Maria A Medina #14, 7 days supply, Prescribed by DAVID HOLGUIN, Filled 09/21/2019 Zetia 10 mg tablet completed Take 1 tablet once a day 09/05 - 07/10 Vero Romero NP MULTIVITAMINS ORAL CAPSULE completed ONE TAB. DAILY - 08/03 Kassandra Staley VITAMIN D3 23542 UNIT ORAL TABLET completed TAKE ONE TAB BY MOUTH WEEKLY 08/30 - 09/24 Ankur Rubio MD levothyroxine 50 mcg tablet completed 1 tablet by mouth once a day - 01/11 Rose Dickey Cozaar 50 mg tablet completed 2 TAB. DAILY 08/09 - 10/25 Ankur Rubio MD atorvastatin 40 mg tablet active TAKE 1 TABLET BY MOUTH ONCE A DAY 08/09 Lola Ross aspirin 81 mg tablet,delayed release (/EC) completed Take 1 tablet by mouth once a day 12/20 - 01/11 Chastyon Dickey PRAVACHOL 40 MG ORAL TABLET completed ONE TAB. DAILY - 08/03 Kassandra Staley LOSARTAN POTASSIUM 25 MG ORAL TABLET completed Take one tablet daily - Lia Salazar PRAVACHOL 40 MG ORAL TABLET completed ONE TAB. DAILY - Lia Salazar METFORMIN HCL 500 MG ORAL TABLET completed twiec a day 08/26 - 08/03 Sofia Curtis VITAMIN D3 5000 UNIT ORAL TABLET completed one aday 08/26 - Lia Salazar SYNTHROID 50 MCG ORAL TABLET completed ONE TAB. DAILY 08/26 - Lia Salazar SYNTHROID 25 MCG ORAL TABLET completed ONE TAB. DAILY - 08/03 Kassandra Staley HYDROCHLOROTHIAZIDE 12.5 MG ORAL CAPSULE completed ONE TAB. DAILY - 08/03 Kassandra Staley QSYMIA 7.5-46 MG ORAL CAPSULE EXTENDED RELEASE 24 HOUR completed one tablet daily - 08/03 Kassandra Staley QSYMIA 3.75-23 MG ORAL CAPSULE EXTENDED RELEASE 24 HOUR completed one tablet daily - 08/03 Kassandra Staley VITAMIN D3 5000 UNIT ORAL TABLET completed ONE A DAY - 08/03 Kassandra Staley LOVASTATIN 20 MG ORAL TABLET completed ONE TAB. DAILY 02/26 - 08/03 Kassandra Staley ASPIRIN 81 MG ORAL TABLET completed ONE TAB. DAILY 02/26 - Ankur Rubio MD SOCIAL HISTORY Date Observation Value Provider alcohol use no Ankur Bowen smoking status Never smoker Ankur Rubio MD alcohol use no Sharlene Ross smoking status Never smoker Sharlene Ross social history E&M S moking History: P edwar has never smoked. Ankur Rubio MD social history reviewed E&M revi ewed - no changes required Ankur Rubio MD smoking status Never smoker Maria A Carol social history E&M S moking History: P edwar has never smoked. Ankur Rubio MD social history reviewed E&M revi ewed - no changes required Ankur Rubio MD smoking status Never smoker Marcia Bloc k alcohol use no Mayuri Kevin smoking status Never smoker Mayuri Kevin social history E&M S moking History: P edwar has never smoked. Efren Byers MD social history reviewed E&M revi ewed - no changes required Efren Byers MD alcohol use no Kassandra Ferrer yuliet smoking status Never smoker Kassandra Jennings social history E&M S moking History: P edwar has never smoked. Ankur Rubio MD social history reviewed E&M revi ewed - no changes required Ankur Rubio MD alcohol use no Kassandra Ferrer yuliet smoking status Never smoker Kassandra Jennings social history E&M S moking History: Dominique vann has never smoked. Ankur Rubio MD social history reviewed E&M revi ewed - no changes required Ankur Rubio MD alcohol use no Kassandra Ferrer nson smoking status Never smoker Kassandra Jennings number of grandchildren Efren Byers MD U daniele Byers MD smoking status Never smoker Efren Byers MD social history E&M S moking History: P edwar has never smoked. Efren Byers MD social history reviewed E&M revi ewed - no changes required Efren Byers MD alcohol use no Kassandra Ferrer nson social history E&M S moking History: P edwar has never smoked. Ankur Rubio MD social history reviewed E&M revi ewed - no changes required Ankur Rubio MD number of grandchildren Ankur Salazar smoking status Never smoker Lia Salazar social history E&M S moking History: P edwar has never smoked. Ankur Rubio MD social history reviewed E&M revi ewed - no changes required Ankur Rubio MD alcohol use no Sofia Sammy mujica smoking status Never smoker Sofia soares social history reviewed E&M revi ewed - no changes required Ankur Rubio MD smoking status Never smoker Kassandra David vu social history reviewed E&M revi ewed - no changes required Ankur Rubio MD smoking status Never smoker Kassandra Hernandez mirella social history reviewed E&M revi ewed - no changes required Ankur Rubio MD smoking status Never smoker Kassandra Jennings FUNCTIONAL STATUS Date Observation Value Provider HRA, CV Assess/Plan, Angina (inactive) Management Plan continue current therapy Ankur Rubio MD HRA, CV Assess/Plan, Angina (inactive) Management Plan continue current therapy Vero Romero NP HRA, CV Assess/Plan, Angina (inactive) Management Plan continue current therapy Ankur Rubio MD HRA, CV Assess/Plan, Angina (inactive) Management Plan continue current therapy Ankur Rubio MD HRA, CV Assess/Plan, Angina (inactive) Management Plan continue current therapy Efren Byers MD HRA, CV Assess/Plan, Angina (inactive) Management Plan continue current therapy Ankur Rubio MD HRA, CV Assess/Plan, Angina (inactive) Management Plan continue current therapy Ankur Rubio MD HRA, CV Assess/Plan, Angina (inactive) Management Plan continue current therapy Efren Byers MD HRA, CV Assess/Plan, Angina (inactive) Management Plan continue current therapy Ankur Rubio MD HRA, CV Assess/Plan, Angina (inactive) Management Plan continue current therapy Ankur Rubio MD FAMILY HISTORY Family Member Condition Full Sister Family History of Co ronary Artery Disease: Full Sister Family History of Hy pertension: Full Sister Family History of CV A or Stroke: Father Family History of Co ronary Artery Disease: INSURANCE PROVIDERS Payer name Policy type / Coverage type [place] red libertarian ID AARP MEDICARE ADVANTAGE HMO-POS HMO [id number] [facility] Medicaid 0 [id number] ADVANCE DIRECTIVES Name Date DISCUSSED - NO DECISION MADE TREATMENT PLAN Date Name Performer Cardiology:pro 239 e cho 2019 EF 55%, grade 1 diastolic dysfunction, trace MR/TR Ankur Rubio MD Cardiology:neg egfr h ihg dd wiht nec ct pe n eg uacr, neg a1xc, neg nisha n o clot in leg n eg pft, neg pe by ct Ankur Rubio MD Cardiology: 2 021 a1c 5.8 Ankur Rubio MD Cardiology Ankur Rubio MD Cardiology Ankur Rubio MD Cardiology: f u neg 5 % apc 18, on new rx for thryoid E KG today SR Ankur Rubio MD Cardiology: H er updated medication list for this problem includes: Ezetimibe 10 Mg Tablet (Ezetimibe) ..... Take 1 tablet by mouth daily Atorvastatin 40 Mg Tablet (Atorvastatin) ..... Take 1 tablet by mouth once a day C HOL: 119 (09/26/2019) LDL: 39 (09/26/2019) HDL: 59 (09/26/2019) T (09/26/2019) Ankur Rubio MD Cardiology: n ml b12 and rpr Ankur Rubio MD Cardiology: h as had colon, Ankur Rubio MD Cardiology Ankur Rubio MD Cardiology Ankur Rubio MD Cardiology: p ostive stress test 2014 c ath 2014 no CAD Ankur Rubio MD Cardiology:echo 2018 EF 55%, grade 1 diastolic dysfunction, trace MR/TR Vero Romero NP Cardiology:postive s tress test 2014 c ath 2014 no CAD Vero Romero NP Cardiology: d oesn't want cpap, has dentures Vero Romero NP Cardiology:2020 a1c 5.8 Vero Romero NP Cardiology:due to fitzgerald ve labs next month with PCP. will add Vit D level Vero Romero NP Cardiology: f u neg 5 % apc 18, on new rx for thryoid E KG today SR Vero Romero NP Cardiology:CHOL: 119 (09/26/2019) LDL: 39 (09/26/2019) HDL: 59 (09/26/2019) T (09/26/2019) The following medications were removed from the medication list: Zetia 10 Mg Tablet (Ezetimibe) ..... Take 1 tablet once a day Atorvastatin 40 Mg Tablet (Atorvastatin) ..... Take 1 tablet by mouth daily Her updated medication list for this problem includes: Ezetimibe 10 Mg Tablet (Ezetimibe) ..... Take 1 tablet by mouth daily Atorvastatin 40 Mg Tablet (Atorvastatin) ..... Take 1 tablet by mouth once a day Vero Romero NP Cardiology:on supple mentation. H er updated medication list for this problem includes: Levothyroxine 50 Mcg Tablet (Levothyroxine) ..... Take 1 tablet by mouth daily Vero Romero NP Cardiology:Discussio n of benefits for remote patient monitoring took place. Patient gives consent for remote monitoring of physiologic parameters including, but not limited to, weight, blood pressure, pulse oximetry, respiratory flow rate. BP today: 140/76 P rior BP: 140/88 (09/23/2020) Labs Reviewed: C reat: 0.81 (09/24/2020) C hol: 119 (09/26/2019) HDL: 59 (09/26/2019) LDL: 39 (09/26/2019) T (09/26/2019) The following medications were removed from the medication list: Aspirin 81 Mg Tablet,delayed Release (dr/ec) (Aspirin) ..... Take 1 tablet by mouth once daily Her updated medication list for this problem includes: Losartan 100 Mg Tablet (Losartan) ..... Take 1 tablet by mouth daily Aspirin 81 Mg Tablet,delayed Release (dr/ec) (Aspirin) ..... Take 1 tablet by mouth once a day take 1 tablet by mouth once daily Vero Romero NP Cardiology: h as had colon, due for repeat colonoscopy Vero Romero NP Cardiology Vero Romero NP Cardiology Vero Romero NP :5.8 Ankur Rubio MD Cardiology Ankur Rubio MD Cardiology Ankur Rubio MD Cardiology Ankur Rubio MD Cardiology Ankur Rubio MD Cardiology Ankur Rubio MD Cardiology: h ihg dd wiht nec ct pe n eg uacr, neg a1xc, neg nisha n o clot in leg n eg pft, neg pe by ct Ankur Rubio MD Cardiology: 2 39 Ankur Rubio MD Cardiology: c alcium on ctneg cath, post nuc Ankur Rubio MD Cardiology:has had colon Ankur Rubio MD Cardiology Ankur Rubio MD Cardiology:fu neg 5 % apc 18, on new rx for thryoid Ankur Rubio MD Cardiology:has colon blessing, has taken iron in psat Ankur Rubio MD Cardiology: L abs Reviewed: T SH: 4.680 (2017) Total T4: 7.1 (2017) H gBA1c: 5.5 (2017) C hol: 129 (2017) HDL: 56 (2017) Ankur Rubio MD Cardiology: H er updated medication list for this problem includes: Hydrochlorothiazide 25 Mg Oral Tablet (Hydrochlorothiazide) ..... One tab daily Cozaar 50 Mg Oral Tablet (Losartan potassium) ..... 2 tab. daily Aspirin Adult Low Dose 81 Mg Oral Tablet Delayed Release (Aspirin) ..... One tab by mouth daily BP today: 138/82 P rior BP: 142/88 (09/05/2018) Labs Reviewed: C reat: 0.78 (2017) C hol: 129 (2017) HDL: 56 (2017) Ankur Rubio MD Cardiology:hihg dd w iht nec ct pe n eg uacr, neg a1xc, neg nisha n o clot in leg n eg pft, neg pe by ct Ankur Rubio MD Cardiology:239 Ankur Rubio MD Cardiology:calcium on ctneg cath , post nuc Ankur Rubio MD Cardiology follow up:will do ech o and tele Lavernkendell Alcantaramiglia [facility] Cardiology follow up :will repeat echo H er updated medication list for this problem includes: Cozaar 50 Mg Oral Tablet (Losartan potassium) ..... 2 tab. daily Aspirin Adult Low Dose 81 Mg Oral Tablet Delayed Release (Aspirin) ..... One tab by mouth daily Lavern Ventimiglia [facility] Cardiology follow up :cont present treatment reports recent labs per primary H er updated medication list for this problem includes: Zetia 10 Mg Oral Tablet (Ezetimibe) ..... Take one tablet daily Lipitor 40 Mg Oral Tablet (Atorvastatin calcium) ..... One tab. daily Lavernkendell Wynne [facility] Cardiology follow up :controlled H er updated medication list for this problem includes: Cozaar 50 Mg Oral Tablet (Losartan potassium) ..... 2 tab. daily Aspirin Adult Low Dose 81 Mg Oral Tablet Delayed Release (Aspirin) ..... One tab by mouth daily Lavern Hicksgldemarco [facility] Cardiology:Denies ch est pain. C ontinues asa. Efren Byers MD Cardiology:Venous in sufficiency of the GSV bilaterally. Lake's cyst in Right pop fossa. Reflux noted in right SFJ. R ecommend compression stockings as first line of treatment. Efren Byers MD Cardiology: H er updated medication list for this problem includes: Lipitor 40 Mg Oral Tablet (Atorvastatin calcium) ..... One tab. daily Efren Byers MD Cardiology: D enies chest pain. C ontinues asa. Efren Byers MD Cardiology: B P today: 158/85 P rior BP: 145/82 (09/06/2017) Labs Reviewed: C reat: 0.78 (2017) C hol: 129 (2017) HDL: 56 (2017) Efren Byers MD Cardiology:1. No edy dence of a deep vein thrombosis of the lower extremities bilaterally. 2 . Significant venous insufficiency of the greater saphenous vein bilaterally. 3 . Right popliteal fossa demonstrates bakers cyst @ 1.1 x 2.8 cm. 4 . Reflux noted in right SFJ. R ecommend compression stockings as first line of treatment. Efren Byers MD Cardiology:needs inusin, do for colonsoyp Ankur Rubio MD Cardiology:neg uacr, neg a1xc, neg nisha n o clot in leg n eg pft, neg pe by ct Ankur Rubio MD Cardiology:239 Ankur Rubio MD Cardiology:on new rx Ankur cevallos MD Cardiology:on new rx Ankur cevallos MD Cardiology:nml b12 and rpr Angie Rubio MD Cardiology:CHOL: 129 (2017) HDL: 56 (2017) Ankur Rubio MD Cardiology:5% apc 18, on new rx for thryoid Ankur Rubio MD Cardiology:deosnot want cpap, ah s dentures Ankur Rubio MD Cardiology Ankur Rubio MD Cardiology Ankur Rubio MD Cardiology:not sure if insruanc can cvoer evlt Ankur Rubio MD Cardiology:cannto aford rx Angie Rubio MD Cardiology:will rx Ankur Rubio MD Cardiology:will resume rx Ankur Rubio MD Cardiology:no clot i n leg n eg pft, neg pe by ct Ankur Rubio MD Cardiology Efren Byers MD Cardiology:Worse wit h exertion and stretching. O nset with swelling about 2 weeks ago. W ill check venous doppler to rule out DVT and NISHA. Efren Byers MD Cardiology:Denies ch est pain. C ontinues asa. Efren Byers MD Cardiology Efren Byers MD Cardiology Efren Byers MD Cardiology:ne cath, calicm on ct pos nuc in past Ankur Rubio MD Cardiology Ankur Rubio MD Cardiology:off rx , pt not sure why Ankur Rubio MD Cardiology:pro 265 Ankur Rubio MD Cardiology:was treatd and finens h, seeing jose Rubio MD Cardiology:neg pft, neg pe by ct Ankur Rubio MD Cardiology Follow up :cause of s yncope ?? Ankur Rubio MD Cardiology Follow up :will rx H er updated medication list for this problem includes: Losartan Potassium 25 Mg Oral Tabs (Losartan potassium) ..... Take one tablet daily Aspirin Adult Low Dose 81 Mg Oral Tbec (Aspirin) ..... One tab by mouth daily BP today: 160/90 P rior BP: 142/87 (08/27/2015) Labs Reviewed: H DL: 57.0 (02/27/2015) Ankur Rubio MD Cardiology Follow up :HDL: 57.0 (02/27/2015) will rx H er updated medication list for this problem includes: Pravachol 40 Mg Tabs (Pravastatin sodium) ..... One tab. 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 nAkur Rubio MD Cardiology: e levated pro bnp n o edema no dyponm will observe Ankur Rubio MD Cardiology: I NSURANCE WOULD NOT COVER HOME STUDY, WILL TRY ATTENDANT STUDY Ankur Rubio MD Cardiology:ran out o f rx will re give, it helped her Ankur Rubio MD Cardiology:could not affrord rx, will try metfromin, prediambete Ankur Rubio MD Cardiology Ankur Rubio MD Cardiology:INSURANCE WOULD NOT COVER HOME STUDY, WILL TRY ATTENDANT STUDY Ankur Rubio MD Cardiology:WILL RX Ankur Rubio MD Cardiology: W ILL RX Tests: (5) Thyroid Panel with TSH (9253) TSH [H] 4.850 ?IU/mL 0.270 - 4.200 *5 T4 5.7 ??g/dL 4.5 - 11.7 T3-Uptake 1.2 TBI 0.8 - 1.3 FT4 Index 4.8 ??g/dL 4.4 - 11.4 Ankur Rubio MD Cardiology:SAYS IT I S BETTER ELSEWERJHE, WILL RX WITH HCTZ Ankur Rubio MD Cardiology:WILL TRY QUSUMAI AND MEDIFAST Ankur Rubio MD Cardiology:WILL TRY DIET PILL Fitzgerald leo Rubio MD Cardiology:ests: (1) Lipid Panel (9119) Trigylcerides 148.0 mg/dL 0.0 - 150.0 *1 Cholesterol [H] 212.0 mg/dL 0.0 - 200.0 UHDL 57.0 mg/dL 45.0 - 65.0 LDL, Calculated 125.4 - LDL/HDL Ratio 2.2 Ratio - VLDL 29.6 mg/dl 5.0 - 40.0 Ankur Rubio MD Cardiology:Pulmonary Function Diagnosis: E ssentially normal pulmonary function test. Ankur Rubio MD Cardiology:RHYTHM: S INUS RHYTHM T he average heart rate was 67 BPM with a maximum heart rate of 104 BPM at 09:07:24. T he minimum heart rate of 50 BPM at 00:17:48. 9 Ventricular ectopics, 5 were noted as isolated beats. 4 were noted as Ventricular Tachycardia. 3 131 Supraventricular ectopics, 2687 were noted as isolated beats, 108 SVE pairs, 63 runs of paroxymal supraventricular tachycardia. N o diary submitted. [facility] during the analysis. Ankur Rubio MD Cardiology:RHYTHM: S INUS RHYTHM T he average heart rate was 67 BPM with a maximum heart rate of 104 BPM at 09:07:24. T he minimum heart rate of 50 BPM at 00:17:48. 9 Ventricular ectopics, 5 were noted as isolated beats. 4 were noted as Ventricular Tachycardia. 3 131 Supraventricular ectopics, 2687 were noted as isolated beats, 108 SVE pairs, 63 runs of paroxymal supraventricular tachycardia. N o diary submitted. C [employer] 2 was the Primary channel during the analysis. Ankur Rubio MD Cardiology:41 RHC 2015 P ulmonary Function Diagnosis: E ssentially normal pulmonary function test. Ankur Rubio MD Cardiology:Conclusio ns: 1 . No evidence of a deep vein thrombosis of the lower extremities bilaterally. 2 . Venous insufficiency of the mid greater saphenous vein bilaterally. NO SXS WILL OBSERVERE Ankur Rubio MD Cardiology:Conclusio ns: 1 . Normal carotid duplex examination. 2 . Vertebral flow is antegrade bilaterally. E lectronically Signed By: Casie Sanders 2 11:25:46-0500 Ankur Rubio MD :due to obestisy and diaastolic dysnfuncion Ankur Rubio MD :elevated pro bnp Ankur Rubio MD :mild sinus geronimo, normal tsh, n ot due to drugs Ankur Rubio MD :do to patricia? needs manzano Ankur cevallos MD :no cad on cath, eit her micovascular dz or false pos nuc Ankur Rubio MD Cardiology;rlhc first time:will watcjh Ankur Rubio MD Cardiology;rlhc first time:neg c xr, bnp 107 Ankur Rubio MD Cardiology;rlhc first time:will check legs Ankur Rubio MD Cardiology;rlhc firs t time:1. Abnormal myocardial perfusion imaging after vasodilator stress with Regadenoson. 2 . Normal left ventricular systolic function with a calculated ejection fraction of 71%. 3 . Myocardial scintigraphy demonstrates moderate to large partially reversible inferolateral wall defect consistent with ischemia. w ill cath and start asperin and lovastatin Ankru Rubio MD Cardiology;[facility] firs t time:There is mild tricuspid regurgitation. IVC is n ormal in size with normal respiratory response. Estimated peak pulmonary artery s ystolic pressure is 35 1 . Normal appearing mitral valve leaflets. Mild mitral valve regurgitation. 2 . Normal left ventricular systolic function. Normal left ventricular size. Normal left v entricular wall thickness. There is E to A wave reversal consistent with impaired LV r elaxation. Left ventricular ejection fraction is estimated at 65 %. 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 107 Ankur Rubio MD Date Name CT, Coronary Calcium Score Complete Echo RPM (remote patient monitoring) Vitamin D, 25-Hydrox y VITAMIN B12 IRON AND TOTAL IRON BINDING CAPACITY FERRITIN CBC (INCLUDES DIFF/P LT) Microalb/Creatinine Urine, Random HEMOGLOBIN A1c TSH, free T4, total T3 LIPID PANEL Lipoprotein (a) CRP, high sensitivit y PROBNP, N TERMINAL COMPREHENSIVE METABO LIC PANEL, W/EGFR RPM (remote patient monitoring) Carotid Duplex Bilat eral COVID19 High Affinit y Antibodies (LC) HEPATITIS PANEL HEMOGLOBIN A1c BASIC METABOLIC PANE L W/EGFR COMPREHENSIVE METABO LIC PANEL, W/EGFR LIPID PANEL Vitamin D, 25-Hydrox y IRON AND TOTAL IRON BINDING CAPACITY FERRITIN CBC (INCLUDES DIFF/P LT) Holter Monitor 24 Hr Complete Echo Complete Echo Holter Monitor 24 Hr RPR (MONITOR) W/REFL TITER Venous Doppler Bilat eral LE - Reflux Arterial Duplex Bi-L ower EX VITAMIN B12 Holter Monitor 24 Hr Vitamin D, 25-Hydrox y COMPREHENSIVE METABO LIC PANEL, W/EGFR URINALYSIS, RANDOM, MICROALB/CREATININE CBC (INCLUDES DIFF/P LT) LIPID PANEL PROTHROMBIN TIME WIT H INR THYROID PANEL WITH T SH, 3RD GENERATION IRON AND TOTAL IRON BINDING CAPACITY FERRITIN HEMOGLOBIN A1c Sleep Study Home Complete Echo PROBNP, N TERMINAL Venous Doppler Bilat eral LE Arterial Duplex Bi-L ower EX IRON AND TOTAL IRON BINDING CAPACITY FERRITIN CBC (INCLUDES DIFF/P LT) VITAMIN D, 25-HYDROX Y, LC/MS/MS COMPREHENSIVE METABO LIC PANEL, W/EGFR URINALYSIS, RANDOM, MICROALB/CREATININE URINALYSIS, REFLEX HEMOGLOBIN A1c PROTHROMBIN TIME WIT H INR PROBNP, N TERMINAL THYROID PANEL WITH T SH, 3RD GENERATION LIPID PANEL BASIC METABOLIC PANE L W/EGFR HEMOGLOBIN A1c FERRITIN THYROID PANEL WITH T SH, 3RD GENERATION PROTHROMBIN TIME WIT H INR LIPID PANEL CBC (INCLUDES DIFF/P LT) BASIC METABOLIC PANE L W/EGFR URINALYSIS, REFLEX URINALYSIS, RANDOM, MICROALB/CREATININE COMPREHENSIVE METABO LIC PANEL, W/EGFR PROTHROMBIN TIME WIT H INR IRON AND TOTAL IRON BINDING CAPACITY VITAMIN D, 25-HYDROX Y, LC/MS/MS PROBNP, N TERMINAL Holter Monitor 24 Hr Sleep Study Home Complete Echo VITAMIN D, 25-HYDROX Y, LC/MS/MS PROBNP, N TERMINAL Complete Echo Mobile Cardiac Tele THYROID PANEL WITH T SH, 3RD GENERATION Sleep Study Sleep Study Venous Doppler Bilat eral LE - Standing Cardiac Cath - L/R - GC DLCO - 41950 FRC - 68859 FVC - 86988 Carotid Duplex Bilat eral Holter Monitor 24 Hr VITAMIN D, 25-HYDROX Y, LC/MS/MS HEMOGLOBIN A1c VITAMIN B12 PROBNP, N TERMINAL THYROID PANEL WITH T SH, 3RD GENERATION CBC (H/H, RBC, INDIC ES, WBC, PLT) COMPREHENSIVE METABO LIC PANEL W/EGFR PARTIAL THROMBOPLAST IN TIME, ACTIVATED PROTHROMBIN TIME WIT H INR LIPID PANEL Sleep Study Home HISTORY OF PROCEDURES Procedure Date Procedure Name Provider Procedure Notes S tatus EKG Ankur Rubio MD complete d EKG Ankur Rubio MD complete d EKG Ankur Rubio MD complete d Holter, 24 or 48 Ankur Rubio MD co mpleted EKG Ankur Rubio MD complete d Holter, 24 or 48 Ankur Rubio MD co mpleted SNOMED-CT: 58833960 Physical Exam, Performed: Pulse Exam of Foot Efren Byers MD completed SNOMED-CT: 333020168 [id number] Current Medications Documented Efren Byers MD completed EKG Ankur Rubio MD complete d SNOMED-CT: 41979253 Physical Exam, Performed: Pulse Exam of Foot Ankur Rubio MD completed Event Monitor Dottie Roberto completed EKG Ankur Rubio MD complete d SNOMED-CT: 663454840 [id number] Current Medications Documented Ankur Rubio MD completed SNOMED-CT: 323845614 431538 Current Medications Documented Ankur Rubio MD completed SNOMED-CT: 954642578 433444 Current Medications Documented Ankur Rubio MD completed Holter, 24 or 48 Ankur Rubio MD co mpleted FVC - 38071 Ankur Rubio MD complet ed FRC - 19846 Ankur Rubio MD complet ed DLCO - 64409 Ankur Rubio MD comple aquiles EKG Ankur Rubio MD complete d
--- OUTSIDE RECORDS SUMMARY | 2024-09-12 20:32 | XMS_ITS | Clinical Summary ---
Author Organization [facility] Address [address] [place] [id number] Care Team Providers Care Jig Bore Tool Maker Name Role Phone Felicity Drake MD Primary Care Provider Allergies No known active allergies Medications ASPIRIN LOW DOSE 81 MG tablet Take 81 mg by mouth daily. 12/14/2020 Active atorvastatin 40 MG tablet Take 40 mg by mouth daily. 03/09/2021 Active ezetimibe 10 MG tablet Take 10 mg by mouth daily. 03/14/2021 Active hydroCHLOROthiaz lloyd 12.5 MG tablet Take 12.5 mg by mouth daily. 03/14/2021 Active levothyroxine 50 MCG tablet Take 50 mcg by mouth daily. 03/22/2021 Active losartan 50 MG tablet Take 100 mg by mouth daily. 03/09/2021 Active sertraline 50 MG tablet Take 50 mg by mouth daily. 03/22/2021 Active Naproxen Sodium (ALEVE) 220 MG Cap Active MAGNESIUM OR Active Active Problems No known active problems Family History Medical History Relation Comments No Known Problems Brother No Known Problems Father No Known Problems Maternal Aunt No Known Problems Maternal Grandfather No Known Problems Maternal Grandmother No Known Problems Maternal Uncle Colon Cancer Mother No Known Problems Paternal Aunt No Known Problems Paternal Grandfather No Known Problems Paternal Grandmother No Known Problems Paternal Uncle COPD Sister Cancer Sister Relation Status Comments Brother Father Maternal Aunt Maternal Grandfather Maternal Grandmother Maternal Uncle Mother Paternal Aunt Paternal Grandfather Paternal Grandmother Paternal Uncle Sister Social History Tobacco Use Types Packs/Day Years Used Date Smoking Tobacco: Never Smokeless Tobacco: Never Tobacco Cessation:Counseling Given: No Comments:not a current smoker Alcohol Use Standard Drinks/Week Comments Not Currently 0 (1 standard drink = 0.6 oz pur e alcohol) Comments Unknown Sex and Gender Information Value Date Recorded Sex Assigned at Not on file Legal Sex Female 12:30 PM CDT Gender Identity Not on file Sexual Orientation Not on file Last Filed Vital Signs Vital Sign Reading Time Taken Comments Blood Pressure 140/86 07/13/2021 2:00 PM BEAMER HAND Pulse - - Temperature - - Respiratory Rate - - Oxygen Saturation - - Inhaled Oxygen Concentration - - Weight 117.9 kg (260 lb) 04/12/2021 1:11 PM CDT Height 157.5 cm (5' 2 ) 04/12/2021 1:11 PM CDT Body Mass Index 47.55 04/12/2021 1:11 PM CDT Plan of Treatment Health Maintenance Due Date Last Done Comments Hepatitis C 1966 DTaP, Tdap and Td Vaccines ( 1 - Tdap) 08/31/1967 Zoster Vaccines (1 of 2) 1998 Annual Medicare Wellness Visit 2013 Dexa Scan (General) 2013 Pneumococcal Vaccine: 65+ Ye ars (1 of 1 - PCV) 2013 RSV Immunization or 60+ Years (1 - 1-dose 75+ series) 08/31/2023 COVID-19 Vaccine ( - 2023-2 5 season) 2024 Meningococcal B Vaccine Aged Out No l onger eligible based on patient's age to complete this topic Meningococcal Vaccine Aged Out No jordana lexy eligible based on patient's age to complete this topic RSV Immunizations Under 20 Months Aged Out No longer eligible based on patient's age to complete this topic Insurance [facility] Care Teams Jig Bore Tool Maker Relationship Specialty Start Date End Date Felicity Drake MD [address] [place] [address] PCP - General FAMILY PRACTICE 03/30/21
--- NOTE | 2024-09-12 20:40 | ED.FALL ---
HPI - Fall General Chief Complaint: Fall Stated Complaint: FALL WITH RLE PAIN Time Seen by Provider: 09/12/24 20:25 History of Present Illness HPI Narrative: Patient is an 84-year-old female who presents to the ER following a fall prior to arrival. She reports on Monday she fell and her wheelchair flipped on top of her. Patient believes she may have lost consciousness for a short amount of time. She reports she did not come in for evaluation after that fall. Earlier today patient fell again as she was trying to transfer from her wheelchair to the toilet. At the time of examination she endorses bilateral knee pain, bilateral hip pain, right shoulder pain, right ankle pain. She endorses a history of high blood pressure, hyperlipidemia, CAD, and depression. Related Data Home Medications ?Medication ?Instructions ?Recorded ?Confirmed ?Last Taken ?Type atorvastatin 40 mg tablet 40 mg PO QHS 07/05/22 05/22/23 Unknown History ezetimibe 10 mg tablet 10 mg PO DAILY 07/05/22 05/22/23 Unknown History dzaajbkudhcy-tvewhecf-ponzdfq-folic 1 tablet PO DAILY 07/05/22 05/22/23 Unknown History acid 400 mcg-vit K1 20 mcg tablet (One-A-Day Women's 50 Plus) cholecalciferol (vitamin D3) 50 50 mcg PO DAILY 11/10/22 05/22/23 Unknown History mcg (2,000 unit) tablet Allergies Allergy/AdvReac Type Severity Reaction Status Date / Time hydrocodone Allergy Severe SET BODY Verified 09/12/24 19:48 ON FIRE methocarbamol Allergy Mild ?NOT Verified 09/12/24 19:48 FAMILIAR WITH MED. Review of Systems Review of Systems: All systems reviewed & are unremarkable except as noted in HPI and below [facility] Past Medical History Medical History Cervical cancer screening Morbid obesity Osteoarthritis Prediabetes Spondylosis of lumbar spine with myelopathy Central stenosis of spinal canal Reactive depression Abnormal colonoscopy (~2012) polyps removed - repeat 5 yrs CAD (coronary artery disease) Hypothyroid Essential (primary) hypertension Hyperlipidemia Vitamin D deficiency Surgical History Surgical History H/O shoulder surgery History of surgery on arm (~1972) History of total left knee replacement (~2010) History of tubal ligation (~1973) History of cholecystectomy (~1971) Family History Family History Mother Family history of primary malignant neoplasm of liver Father Family history of coronary artery disease Social History Social History Smoking status: Never smoker Alcohol intake: never Substance use: never Lack of Transportation: No Lack of Food: Never True Current Housing: I Have Housing Concerned About Future Housing: No Difficulty Paying Gas/Electric Bills: No Difficulty Paying for Meds: No Currently Unemployed: No Education: Grade School Difficulty w/ Childcare or Family Care: No Living arrangements: alone Occupation/Education: retired Gender identity (if verbalized by the patient): Female Spiritual care concerns: No Exam Narrative: GENERAL: Well appearing, well-nourished, non-toxic, in no acute distress. HEAD: Normocephalic, atraumatic. NECK: Supple. No adenopathy, no masses. RESPIRATORY: Airway patent, respirations nonlabored. Clear to auscultation bilaterally, no rales, rhonchi, wheezing. CARDIOVASCULAR: Regular rate and rhythm without murmurs, rubs, or gallops. Peripheral pulses 2+ and equal bilaterally. ABDOMINAL: Soft, nontender, nondistended, no hepatosplenomegaly. Normoactive BS. MUSCULOSKELETAL: Moves all extremities. Strength/ROM intact without gross deformities. SKIN: Warm, dry, normal color. No rashes. NEURO: A&O X3. Speech clear. Cranial nerves II-XII intact. No ataxic movements. PSYCHIATRIC: Appropriate mood and affect. Normal interaction. Course Vital Signs Vital signs: Vital Signs Temperature 36.6 C 09/12/24 19:40 Pulse Rate 98 09/12/24 19:40 Respiratory Rate 20 09/12/24 19:40 Blood Pressure 129/66 09/12/24 19:40 Pulse Oximetry 99 09/12/24 19:40 Oxygen Delivery Room Air 09/12/24 19:40 Temperature 36.6 C 09/12/24 21:50 Pulse Rate 79 09/13/24 01:07 Respiratory Rate 16 09/13/24 01:07 Blood Pressure 129/80 09/13/24 01:07 Pulse Oximetry 97 09/13/24 01:07 Oxygen Delivery Room Air 09/12/24 19:40 MDM - Fall MDM Narrative Medical decision making narrative: Patient is an 84-year-old female who presents to the ER following a fall prior to arrival. She reports on Monday she fell and her wheelchair flipped on top of her. Patient believes she may have lost consciousness for a short amount of time. She reports she did not come in for evaluation after that fall. Earlier today patient fell again as she was trying to transfer from her wheelchair to the toilet. At the time of examination she endorses bilateral knee pain, bilateral hip pain, right shoulder pain, right ankle pain. She endorses a history of high blood pressure, hyperlipidemia, CAD, and depression. Labs Ordered: CBC, CMP, INR, PTT Imaging Ordered: CT brain, right ankle x-ray, right knee x-ray, chest x-ray, bilateral hip x-ray with AP pelvis, right shoulder x-ray, L knee x-ray Medications Ordered: Fentanyl 50 mcg IV, Toradol 15 mg IV, 1 L normal saline IV bolus Results: Patient's CT brain indicates no acute abnormalities. Patient's right ankle x-ray indicates no acute abnormalities. Her bilateral hip x-ray indicates no acute abnormalities. Patient's right shoulder x-ray indicates no acute abnormalities. Her chest x-ray indicates Nondisplaced right fifth and sixth posterolateral rib fractures, better seen in the concurrent shoulder radiograph. Subsegmental right basilar atelectasis/consolidation and right hemidiaphragm elevation. Possible trace right pleural effusion. Patient's right knee x-ray indicates Angulated and mildly displaced and rotated periprosthetic fracture of the distal right femur. Diagnosis: Right Periprosthetic femur fracture, 5th and 6th posterior lateral rib fractures, possible right chest hemothorax Consults: [facility] [place] Patient Education/Shared MDM: Results of imaging and lab work shared with patient. She endorses improvement following pain medication administration. Spoke with [place] [facility] who contacted [facility] [place]. Padilla, [facility] agreed to accept pt. Pt will be transferred via EMS. She verbalizes understanding and is in agreement with plan. Differential Diagnosis Differential diagnosis: Likely other (Right knee fracture, left knee fracture, Periprosthesis fracture, rib fractures, hemothorax, pneumothorax) Lab Data Attestation: I reviewed the patient's lab results. 09/12/24 23:54 09/12/24 23:54 Labs: Lab Results 09/12/24 09/13/24 Range/Units 23:54 00:04 WBC 11.6 H (4.5-10.0) K/mm3 RBC 4.10 L (4.2-5.4) M/mm3 Hgb 12.1 (12.0-15.0) g/dL Hct 38.2 (37.0-47.0) % MCV 93.2 (80-100) fl MCH 29.5 (26-34) pg MCHC 31.7 L (32-36) g/dl RDW 14.8 H (11.5-14.5) % Plt Count 193 (150-375) k/mm3 MPV 9.8 (7.4-10.4) fl Immature Gran % (Auto) 0.3 (0-0.5) % Neut % (Auto) 79.9 H (45.5-73.1) % Lymph % (Auto) 9.8 L (18.3-44.2) % [place] % (Auto) 9.4 H (2.6-8.5) % Eos % (Auto) 0.3 (0-4.4) % Baso % (Auto) 0.3 (0.2-1.2) % Lymph # (Auto) 1.14 (0.9-3.2) K/mm3 [place] # (Auto) 1.1 H (0.1-0.6) K/mm3 Eos # (Auto) 0.0 (0-0.3) K/mm3 Baso # (Auto) 0.0 (0.0-0.1) K/mm3 Abs Immat Gran (auto) 0.03 (0.00-0.031) K/mm3 Absolute Neuts (auto) 9.3 H (1.3-6.7) K/mm3 Absolute Nucleated RBC 0.000 (0.0-0.012) K/mm3 Nucleated RBC % 0.0 (0.0-0.2) % PT 14.5 (11.1-14.7) Seconds INR 1.1 APTT 25.1 (22.3-36.8) Seconds Sodium 139 (137-145) mmol/L Potassium 3.9 (3.4-5.0) mmol/L Chloride 106 (98-107) mmol/L Carbon Dioxide 23 (22-30) mmol/L Anion Gap 10 (4-12) mmol/L BUN 23 H (7-17) mg/dL Creatinine 0.81 (0.7-1.0) mg/dL Estim Creat Clear Calc 61 ml/min Estimated GFR > 60 (59 - ) Glucose 120 H (65-110) mg/dL Calcium 8.9 (8.4-10.2) mg/dL Total Bilirubin 0.9 (0.2-1.3) mg/dL AST 30 (14-36) U/L ALT 19 (6-35) U/L Alkaline Phosphatase 79 (38-126) U/L Total Protein 7.0 (6.3-8.2) g/dL Albumin 3.9 (3.5-5.1) g/dL Imaging Data Attestation: I personally reviewed and interpreted this imaging study as follows: Radiologist's impression: Impressions Knee X-Ray 09/12/24 21:57 IMPRESSION: Angulated and mildly displaced and rotated periprosthetic fracture of the distal right femur. Shoulder X-Ray 09/12/24 22:02 IMPRESSION: No acute osseous finding in the right shoulder. Nondisplaced right fifth and sixth posterolateral rib fractures. Chest X-Ray 09/12/24 22:05 IMPRESSION: Nondisplaced right fifth and sixth posterolateral rib fractures, better seen in the concurrent shoulder radiograph. Subsegmental right basilar atelectasis/consolidation and right hemidiaphragm elevation. Possible trace right pleural effusion. Ankle X-Ray 09/12/24 22:08 IMPRESSION: No acute osseous finding in the right ankle. Hip/Pelvis X-Ray 09/12/24 22:10 IMPRESSION: No acute osseous finding in the pelvis or bilateral hips. Head CT 09/12/24 23:03 IMPRESSION: No acute intracranial process. Discharge Plan Discharge Clinical Impression: Aria-prosthetic fracture around prosthetic joint, Right femoral fracture, Fracture, ribs, Pleural effusion on right Patient Disposition: Acute Care Hospital Condition: Stable Patient Language: Turkmen Prescriptions: No Action One-A-Day Women's 50 Plus 400-20 mcg tablet 1 tablet PO DAILY ezetimibe 10 mg tablet 10 mg PO DAILY atorvastatin 40 mg tablet 40 mg PO QHS cholecalciferol (vitamin D3) 50 mcg (2,000 unit) tablet 50 mcg PO DAILY losartan 100 mg tablet 100 mg PO DAILY Qty: 90 0RF Rx Instructions: due for an appointment. Last refill until seen. aspirin 81 mg tablet,delayed release (DR/EC) 81 mg PO DAILY Qty: 90 0RF Rx Instructions: due for an appointment. last refill until seen. sertraline [Zoloft] 100 mg tablet 100 mg PO DAILY Qty: 90 0RF Rx Instructions: last refill until seen due for an appointment levothyroxine 75 mcg tablet 75 mcg PO DAILY Qty: 30 0RF Rx Instructions: LAST REFILL, NEEDS APPOINTMENT Follow-up/Referrals: Elza Drake MD [Primary Care Provider] - Time of Disposition: 01:21
[2024-09-12 21:50] VITALS: BP 120/66; PULSE 76; RESP 18; TEMP 36.6; O2SAT 97
[2024-09-12] MEDS: SODIUM CHLORIDE 0.9% IV 1,000 ML 999 ML IV CONT (23:54)
[2024-09-12 23:58] VITALS: BP 100/67; PULSE 83; RESP 18; O2SAT 96
[2024-09-13] LABS: Basophils Percent Auto 0.3 % (0.2-1.2); Eosinophils Percent Auto 0.3 % (0-4.4); Hematocrit 38.2 % (37.0-47.0); Hemoglobin 12.1 g/dL (12.0-15.0); Immature Granulocyte Absolute 0.03 K/mm3 (0.00-0.031); Immature Granulocyte Percent A 0.3 % (0-0.5); Lymphocytes Absolute Auto 1.14 K/mm3 (0.9-3.2); Lymphocytes Percent Auto 9.8 % (18.3-44.2); Mean Corpuscular HGB Conc 31.7 g/dl (32-36); Mean Corpuscular Hemoglobin 29.5 pg (26-34); Mean Corpuscular Volume 93.2 fl (80-100); Mean Platelet Volume 9.8 fl (7.4-10.4); Monocytes Absolute Auto 1.1 K/mm3 (0.1-0.6); Monocytes Percent Auto 9.4 % (2.6-8.5); Neutrophils Absolute Auto 9.3 K/mm3 (1.3-6.7); Neutrophils Percent Auto 79.9 % (45.5-73.1); Platelet Count Result 193 k/mm3 (150-375); Red Cell Distribution Width 14.8 % (11.5-14.5); White Blood Count 11.6 K/mm3 (4.5-10.0)
[2024-09-13] MEDS: KETOROLAC 15 MG/ML VIAL (*BKC) IV PUSH (00:05)
[2024-09-13] MEDS: fentaNYL CITRATE INJ (*CRX) 100 MCG/2 ML VIAL 50 MCG IV PUSH (00:05)
[2024-09-13 00:11] LABS: Alanine Aminotransferase 19 U/L (6-35); Albumin Level 3.9 g/dL (3.5-5.1); Alkaline Phosphatase 79 U/L (38-126); Anion Gap 10 mmol/L (4-12); Aspartate Amino Transferase 30 U/L (14-36); Bilirubin,Total 0.9 mg/dL (0.2-1.3); Blood Urea Nitrogen 23 mg/dL (7-17); Calcium 8.9 mg/dL (8.4-10.2); Carbon Dioxide 23 mmol/L (22-30); Chloride 106 mmol/L (98-107); Estimated CRCL calculation 61 ml/min; Estimated Glomerular Filt Rate > 60; Glucose 120 mg/dL (65-110); Potassium 3.9 mmol/L (3.4-5.0); Sodium 139 mmol/L (137-145)
[2024-09-13 00:45] LABS: INR 1.1; Partial Thromboplastin Time 25.1 Seconds (22.3-36.8); Prothrombin Time 14.5 Seconds (11.1-14.7)
[2024-09-13 01:07] VITALS: BP 129/80; PULSE 79; RESP 16; O2SAT 97
--- NOTE | 2024-09-13 01:12 | PC.NURSE ---
EMS arrives for patient
== END 2024-09-13 01:21 | disposition short-term general hospital (02) ==
PROVIDERS: Emergency Provider Registered Nurse; PCP Family Medicine
DX: M97.8XXA Periprosthetic fracture around other internal prosthetic joint, initial encounter (principal); S22.41XA Multiple fractures of ribs, right side, initial encounter for closed fracture; J90 Pleural effusion, not elsewhere classified; I25.10 Atherosclerotic heart disease of native coronary artery without angina pectoris; E78.5 Hyperlipidemia, unspecified; E03.9 Hypothyroidism, unspecified; I10 Essential (primary) hypertension; W05.0XXA Fall from non-moving wheelchair, initial encounter
CPT/HCPCS: 36415; 70450; 71045; 73030; 73521; 73562; 73600; 80053; 85025; 85610; 85730; 96361; 96374; 96375; 99285; J1885; J3010; J7030

== ENCOUNTER 2024-11-06 15:10 | Observation (INO) | payer MEDICARE, SELFPAY ==
[2024-11-06] VITALS (21 sets, daily range): BP systolic 112–149; BP diastolic 58–104; PULSE 73–91; RESP 11–25; TEMP 36.5–36.6; O2SAT 91–100; BMI 42.3
--- NOTE | ~2024-11-06 | CT_ITS ---
CLINICAL INDICATION: Nausea vomiting and diarrhea COMPARISON: 05/19/2016. TECHNIQUE: Multiple contiguous axial images of the abdomen and pelvis were performed following the ad ministration of with 100 mL Omnipaque-350 intravenous contrast The dose-length product (DLP) was 1591.55 mGy-cm. Automated exposure control and iterative reconstruction technique were employed. FINDINGS/OBSERVATIONS: Visualized lower thorax: The bilateral lung bases are clear. The heart is of normal size, without pericardial effusion. Small hiatal hernia is present. Liver: The liver demonstrates homogeneous enhancement and is not enlarged. Gallbladder and biliary system: The gallbladder is surgically absent. Pancreas: The pancreas is atrophic, and enhances homogeneously without ductal dilatation. Spleen: The spleen enhances homogeneously and is not enlarged. Kidneys: The bilateral kidneys enhance symmetrically without hydronephrosis or renal calculi. Adrenal glands: Unremarkable. Gastrointestinal tract: Trace colonic diverticulosis without surrounding inflammatory change. Appendix: The appendix is not definitively visualized. However, no pericecal inflammatory change is identified suggest the presence of acute appendicitis. Vasculature: Unremarkable. Lymph nodes: No pathologically enlarged or morphologically suspicious lymph nodes within the retroperitoneum or at the root of the mesentery. Pelvic structures: The bladder is distended, and otherwise unremarkable. The uterus is anteverted and anteflexed. Body wall and musculoskeletal: Small fat-containing umbilical hernia. Age-appropriate degenerative disease within the lower thoracic and lumbosacral spines. 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 IMPRESSION: No acute pathology is identified within the lower chest, abdomen or pelvis. Innumerable nonacute findings, as detailed above. Reviewed, dictated and finalized at location A.
--- NOTE | ~2024-11-06 | XR_ITS ---
XR forearm LT 2V Ordering provider: Robbie Davies MD History: . wound . Comparison: None. FINDINGS: BONES: No acute fracture or dislocation. JOINT SPACES: Narrowing of the radiocarpal joint and osteoarthritic changes of the intercarpal and fi rst carpometacarpal joints. SOFT TISSUES: Multiple radiopaque foreign bodies are seen in the subcutaneous tissue posteriorly with a slightly increased opacification of the soft tissues medially opposite the elbow area suggestive o f a hematoma. Clinical correlation advised. IMPRESSION: No acute osseous abnormality left forearm. Polyarticular osteoarthritic changes. Hematoma in the area of the elbow medially. multiple radiopaque shadows. The differential include foreign bodies and less likely a hemangioma. Cl inical correlation advised. Reviewed, dictated and finalized at location A. IMPRESSION: No acute osseous abnormality left forearm. Polyarticular osteoarthritic changes. Hematoma in the area of the elbow medially. multiple radiopaque shadows. The differential include foreign bodies and less l ikely a hemangioma. Clinical correlation advised.
--- NOTE | ~2024-11-06 | XR_ITS ---
CHEST RADIOGRAPH CLINICAL HISTORY: weakness . Nausea vomiting and diarrhea COMPARISON: 09/12/2024 TECHNIQUE: Single portable view of the chest. FINDINGS The cardiomediastinal silhouette is unremarkable. The lungs are clear. IMPRESSION: No focal infiltrate or effusion. Reviewed, dictated and finalized at location A.
--- NOTE | ~2024-11-06 | XR_ITS ---
HISTORY: wound COMPARISON: None TECHNIQUE: 2 views of the right forearm were performed FINDINGS: No acute or subacute fracture. Joint spaces are preserved and alignment is maintained. Soft tissues are unremarkable without radiopaque foreign body or significant calcification. Age-appropriate mineralization. IMPRESSION: No acute fracture or dislocation Reviewed, dictated and finalized at location A.
--- NOTE | 2024-11-06 15:23 | ED_ITS ---
HPI - General Adult General Chief complaint: Nausea/Vomiting/Diarrhea Stated complaint: Open sores to arms, N/V x 4 days, bed bound Time Seen by Provider: 11/06/24 15:16 History of Present Illness HPI narrative: Patient 74-year-old female who presents emergency department with chief complaint of nausea and wounds on the upper extremities patient reports that she is bed-bound reports she had a periprosthetic fracture that was repaired at [place] the patient reported that she noted wounds that have developed on her upper extremities that have swollen and reports that she had some purulent drainage from them patient also reports he has been nauseated reports he also has abdominal pain Related Data Home Medications ?Medication ?Instructions ?Recorded ?Confirmed ?Last Taken ?Type atorvastatin 40 mg tablet 40 mg PO QHS 07/05/22 05/22/23 Unknown History ezetimibe 10 mg tablet 10 mg PO DAILY 07/05/22 05/22/23 Unknown History bkxjlttjkkbt-eidrxcoj-cvaflid-folic 1 tablet PO DAILY 07/05/22 05/22/23 Unknown History acid 400 mcg-vit K1 20 mcg tablet (One-A-Day Women's 50 Plus) cholecalciferol (vitamin D3) 50 50 mcg PO DAILY 11/10/22 05/22/23 Unknown History mcg (2,000 unit) tablet Allergies Allergy/AdvReac Type Severity Reaction Status Date / Time hydrocodone Allergy Severe SET BODY Verified 11/06/24 15:23 ON FIRE methocarbamol Allergy Mild ?NOT Verified 11/06/24 15:23 FAMILIAR WITH MED. Review of Systems 2 Review of Systems: A 10 system review of systems was completed on the patient and is negative except for what is stated in the HPI. Nursing and ancillary documentation was reviewed. [facility] Past Medical History Medical History Cervical cancer screening Morbid obesity Osteoarthritis Prediabetes Spondylosis of lumbar spine with myelopathy Central stenosis of spinal canal Reactive depression Abnormal colonoscopy (~2012) polyps removed - repeat 5 yrs CAD (coronary artery disease) Hypothyroid Essential (primary) hypertension Hyperlipidemia Vitamin D deficiency Surgical History Surgical History H/O shoulder surgery History of surgery on arm (~1972) History of total left knee replacement (~2010) History of tubal ligation (~1973) History of cholecystectomy (~1971) Family History Family History Mother Family history of primary malignant neoplasm of liver Father Family history of coronary artery disease Social History Social History Smoking status: Never smoker Alcohol intake: never Substance use: never Lack of Transportation: No Lack of Food: Never True Current Housing: I Have Housing Concerned About Future Housing: No Difficulty Paying Gas/Electric Bills: No Difficulty Paying for Meds: No Currently Unemployed: No Education: Grade School Difficulty w/ Childcare or Family Care: No Living arrangements: alone Occupation/Education: retired Gender identity (if verbalized by the patient): Female Spiritual care concerns: No Exam 2 Narrative: GENERAL: Well-appearing, well-nourished, and in no acute distress. HEAD: Normocephalic, atraumatic. EYES: PERRLA and EOMI. ENT: Nares clear, no rhinorrhea or epistaxis. Mucous membranes moist. NECK: Supple. CHEST: Clear to auscultation. No respiratory distress. HEART: Regular rate and rhythm. No murmur heard. Normal peripheral pulses. ABDOMEN: Soft, diffusely tender to palpation, nondistended, normal active bowel sounds. EXTREMITIES: Normal range of motion. No edema. SKIN: Warm, dry, no rash. There are areas of erythema in bilateral upper extremities in the proximal forearm these were raised tender and fluctuant NEURO: No focal deficits. Alert and oriented x3. PSYCH: Normal mood and affect. Course Vital Signs Vital signs: Vital Signs Temperature 36.6 C 11/06/24 15:11 Pulse Rate 85 11/06/24 15:11 Respiratory Rate 18 11/06/24 15:11 Blood Pressure 116/58 L 11/06/24 15:11 Pulse Oximetry 98 11/06/24 15:11 Oxygen Delivery Room Air 11/06/24 15:11 Temperature 36.6 C 11/06/24 15:11 Pulse Rate 81 11/06/24 15:39 Respiratory Rate 19 11/06/24 15:39 Blood Pressure 112/58 L 11/06/24 15:39 Pulse Oximetry 96 11/06/24 15:39 Oxygen Delivery Room Air 11/06/24 15:11 Procedures Abscess I/D upper extremity: Date of Incision: 11/06/24 Time of Incision: 16:40 Side (if applicable): right Local Anesthetic: lidocaine 1% Amount of anesthesia used (mL): 3 Technique: incised with #11 blade Amount of fluid expressed (mL): 4 Packing used?: none I&D Results: Pus and Blood other: Date of Incision: 11/06/24 Time of Incision: 16:41 Side (if applicable): left Local Anesthetic: lidocaine 1% Amount of anesthesia used (mL): 4 Technique: incised with #11 blade Amount of fluid expressed (mL): 4 Packing used?: none I&D Results: Pus and Blood Medical Decision Making MDM Narrative Medical decision making narrative: Differential diagnosis includes cellulitis, abscess, intra-abdominal infection yes, UTI, sepsis, Patient received IV fluids and antiemetics the abscesses were incised and drained with significant improvement in the patient's symptoms. The patient was started on IV antibiotics CT scan of the abdomen pelvis showed no acute abnormality urinalysis did show evidence of UTI Case was discussed with the hospitalist the patient be admitted for further care Vital Signs Vital Signs: Vital Signs Temperature 36.6 C 11/06/24 15:11 Pulse Rate 85 11/06/24 15:11 Respiratory Rate 18 11/06/24 15:11 Blood Pressure 116/58 L 11/06/24 15:11 Pulse Oximetry 98 11/06/24 15:11 Oxygen Delivery Room Air 11/06/24 15:11 Temperature 36.6 C 11/06/24 15:11 Pulse Rate 81 11/06/24 15:39 Respiratory Rate 19 11/06/24 15:39 Blood Pressure 112/58 L 11/06/24 15:39 Pulse Oximetry 96 11/06/24 15:39 Oxygen Delivery Room Air 11/06/24 15:11 Lab Data 11/06/24 16:10 11/06/24 16:10 Labs: Lab Results 11/06/24 11/06/24 Range/Units 16:10 17:36 WBC 11.2 H (4.5-10.0) K/mm3 RBC 4.33 (4.2-5.4) M/mm3 Hgb 12.3 (12.0-15.0) g/dL Hct 40.7 (37.0-47.0) % MCV 94.0 (80-100) fl MCH 28.4 (26-34) pg MCHC 30.2 L (32-36) g/dl RDW 14.9 H (11.5-14.5) % Plt Count 291 D (150-375) k/mm3 MPV 9.7 (7.4-10.4) fl Immature Gran % (Auto) 0.4 (0-0.5) % Neut % (Auto) 75.0 H (45.5-73.1) % Lymph % (Auto) 12.6 L (18.3-44.2) % [place] % (Auto) 10.2 H (2.6-8.5) % Eos % (Auto) 1.2 (0-4.4) % Baso % (Auto) 0.6 (0.2-1.2) % Lymph # (Auto) 1.41 (0.9-3.2) K/mm3 [place] # (Auto) 1.1 H (0.1-0.6) K/mm3 Eos # (Auto) 0.1 (0-0.3) K/mm3 Baso # (Auto) 0.1 (0.0-0.1) K/mm3 Abs Immat Gran (auto) 0.04 H (0.00-0.031) K/mm3 Absolute Neuts (auto) 8.4 H (1.3-6.7) K/mm3 Absolute Nucleated RBC 0.000 (0.0-0.012) K/mm3 Nucleated RBC % 0.0 (0.0-0.2) % PT 13.9 (11.1-14.7) Seconds INR 1.0 APTT 29.3 (22.3-36.8) Seconds Sodium 140 (137-145) mmol/L Potassium 3.8 (3.4-5.0) mmol/L Chloride 104 (98-107) mmol/L Carbon Dioxide 27 (22-30) mmol/L Anion Gap 9 (4-12) mmol/L BUN 11 D (7-17) mg/dL Creatinine 0.81 (0.7-1.0) mg/dL Estim Creat Clear Calc 58 ml/min Estimated GFR > 60 (59 - ) Glucose 106 (65-110) mg/dL Lactic Acid 1.8 (0.7-2.0) mmol/L Calcium 9.4 (8.4-10.2) mg/dL Magnesium 1.7 (1.6-2.3) mg/dL Total Bilirubin 0.3 (0.2-1.3) mg/dL AST 26 (14-36) U/L ALT 17 (6-35) U/L Alkaline Phosphatase 97 (38-126) U/L Troponin I < 0.012 (0.000-0.034) ng/mL Total Protein 8.0 (6.3-8.2) g/dL Albumin 4.2 (3.5-5.1) g/dL Lipase 46 (23-300) U/L Procalcitonin 0.0 ng/mL Urine Color Yellow (Yellow) Urine Appearance Cloudy H (Clear) Urine pH 5.5 (5.0-9.0) Ur Specific [place] 1.011 (1.001-1.035) Urine Protein Negative (Negative) mg/dL Urine Glucose (UA) Negative (Negative) mg/dL Urine Ketones Negative (Negative) mg/dL Ur Blood (Man) Negative (Negative) Urine Nitrate Negative (Negative) Urine Bilirubin Negative (Negative) Urine Urobilinogen 0.2 (<2.0) mg/dL Leukocyte Esterase Rfl 1+ H (Negative) MELANIE/UL Urine RBC 0-2 (0-2) /hpf Urine WBC 11-20 H (0-3) /hpf Ur Squamous Epith Cells None seen (Few) /hpf Urine Bacteria 4+ H /hpf Urine Casts 0-2 Discharge Plan Discharge Clinical Impression: Cellulitis and abscess of upper arm and forearm, Nausea & vomiting, Acute UTI Patient Disposition: Still a Patient Condition: Stable Patient Language: Korean Prescriptions: No Action One-A-Day Women's 50 Plus 400-20 mcg tablet 1 tablet PO DAILY ezetimibe 10 mg tablet 10 mg PO DAILY atorvastatin 40 mg tablet 40 mg PO QHS cholecalciferol (vitamin D3) 50 mcg (2,000 unit) tablet 50 mcg PO DAILY losartan 100 mg tablet 100 mg PO DAILY Qty: 90 0RF Rx Instructions: due for an appointment. Last refill until seen. aspirin 81 mg tablet,delayed release (DR/EC) 81 mg PO DAILY Qty: 90 0RF Rx Instructions: due for an appointment. last refill until seen. sertraline [Zoloft] 100 mg tablet 100 mg PO DAILY Qty: 90 0RF Rx Instructions: last refill until seen due for an appointment levothyroxine 75 mcg tablet 75 mcg PO DAILY Qty: 30 0RF Rx Instructions: LAST REFILL, NEEDS APPOINTMENT Follow-up/Referrals: Elza Drake MD [Primary Care Provider] - Time of Disposition: 18:32
--- OUTSIDE RECORDS SUMMARY | 2024-11-06 15:56 | XMS_ITS | Clinical Summary ---
Author Organization [facility] Address [address] [place] [address] Care Team Providers Care Node Js Developer Name Role Phone Georgiana Saucedo MD Primary Care Provider [phone] Source Comments [facility],non-owned Affiliates and Associated Physician Practices is amultiple site organization consisting of ambulatory clinics and hospital sitesin [place], [place], [place] and [place]. This disclosure is being madepursuant to the Care Everywhere program and may not contain all information available regarding this patient. Last updated 18.[facility] Allergies No known active allergies Medications * Be aware that medications may not be up to date on this document. Alwaysverify current medications with the patient. 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 Gender Identity Not on file Sexual Orientation Not on file Last Filed Vital Signs Vital Sign Reading Time Taken Comments Blood Pressure - - Pulse - - Temperature - - Respiratory Rate - - Oxygen Saturation - - Inhaled Oxygen Concentration - - Weight 117.9 kg (260 lb) 08/13/2021 2:44 PM WIRE BENDER Height 157.5 cm (5' 2) 08/13/2021 2:44 PM WIRE BENDER Body Mass Index 47.55 08/13/2021 2:44 PM WIRE BENDER Plan of Treatment Health Maintenance Due Date Last Done Comments BONE DENSITY TESTING 1950 HEPATITIS C SCREENING 08/26/1966 DTAP/TDAP/TD VACCINES (1 - Tdap) 08/31/1967 PNEUMOCOCCAL VACCINE 50+ (1 of 1 - PCV) 1998 ZOSTER VACCINE (1 of 2) 1998 Respiratory Syncytial Virus (RSV) Vaccine Pt: or over 60 yrs (1 - 1-dose 75+ series) 08/31/2023 COVID-19 VACCINE (1 - 2023-2 5 season) 2024 DEPRESSION SCREENING 06/12/2024 INFLUENZA VACCINE (Season Ended) 2025 HEPATITIS B VACCINE Aged Out No longe [...] patient's age to complete this topic Insurance UHC MANAGED MEDICARE ADV MEDICAID - OUT OF STATE [facility] MANAGED MEDICARE ADV Care Teams Node Js Developer Relationship Specialty Start Date End Date Georgiana Saucedo MD [address] [place] [id number] PCP - General 05/14/18
--- OUTSIDE RECORDS SUMMARY | 2024-11-06 15:57 | XMS_ITS | CONTINUITY OF CARE DOCUMENT ---
Author Name stephanie, stephanie Address Unknown Organization [facility] Address [address] [place] [address] Phone [phone] Care Team Providers Care Cyber Security Specialist Name Role Phone Ankur Rubio MD Unavailable Felicity Drake MD Unavailable [phone] Felicity Drake MD Unavailable [phone] PROBLEMS Condition Status Date Provider Notes IRON [...] In-person encounter Office Visit Ankur Rubio MD [facility] Obesity - In-person encounter Office Visit Ankur Rubio MD [facility] PREDIABETES;Bladder disorder - In-person encounter Office Visit Ankur Rubio MD [facility] covid 19;pos igg - In-person encounter Office Visit Ankur Rubio MD [facility] Cholecystectomyr/o Pulmonary embolism and infarction;hx of SyncopeSVT and apcs and brief afib;on tsh rxDizziness - In-person encounter Office Visit Thomas Hernandez MD [facility] - In-person encounter Office Visit Efren Byers MD [facility] - In-person encounter Office Visit Ankur Rubio MD [facility] ? Claudication, intermittent - In-person encounter Office Visit Ankur Ruibo MD [facility] ScreeningHTN essentialLeg painNeuropathy - In-person encounter Office Visit Efren Byers MD [facility] - In-person encounter Office Visit Ankur Rubio MD [facility] ScreeningHTN essentialPulmonary hypertensionSVT and apcs and brief afib;on tsh rxEctopic Arrhythmia - In-person encounter Office Visit Ankur Rubio MD [facility] CADSleep apneaScreeningfatty liver - In-person encounter Office Visit Ankur Rubio MD [facility] Diastolic CHFCADScreening - In-person encounter Office Visit Ankur Rubio MD [facility] CADhx of SyncopeVenous insufficiencySVT and apcs and brief afib;on tsh rxHypercholesterolemiaHypothyroidism - In-person encounter Office Visit Ankur Rubio MD [facility] Diastolic CHFCADObesityFAMILY HISTORY OF HEART DISEASESleep apnear/o Pulmonary embolism and infarction;Screeninghx of Syncope VITAL SIGNS Date Observation Value Provider pulse rate 80 /min [facility] blood pressure, cuff size large [facility] blood pressure, diastolic 90 mm[Hg] [facility], systolic 166 mm[Hg] [facility] oxygen saturation, oximetry 96 % respiratory [...] blood pressure, cuff size regular Fa ith Slater blood pressure, diastolic 76 mm[Hg] Fa joshua Slater blood pressure, systolic 140 mm[Hg] Phil robert Slater weight E&M 280 [lb_av] Sharlene Slater pulse rate 75 /min Sharlene Slater oxygen saturation, oximetry 96 % [facility] respiratory rate E&M 14 /min Sharlene Root [facility] height E&M 62 [in_i] [facility] Body Mass Index (Ratio) 51.21 kg/m2 [...] Index (Ratio) 50.48 kg/m2 Ke da [facility]im[place] [employer] blood pressure, diastolic 88 mm[Hg] Da albert [...] Brandtenson pulse rate 68 /min Kassandra Ferrer [facility] weight E&M 280.4 [lb_av] Kassandra Brandt on height E&M 62 [in_i] Kassandra Ferrer [facility] Body Mass Index (Ratio) 51.94 kg/m2 Ric [...] /min Kassandra horvath weight E&M 282.4 [lb_av] Kassandra coker height E&M 62 [in_i] Kassandra horvath Body Mass Index (Ratio) 52.93 kg/m2 Ric Rubio MD blood pressure, cuff size large Wi nda Salazar blood pressure, diastolic 78 mm[Hg] Wi nda Salazar blood pressure, systolic 120 mm[Hg] [facility] da Salazar oxygen saturation, oximetry 98 [...] Sarah Staley pulse rate 71 /min Kassandra odrseyon oxygen saturation, oximetry 95 % Kassandra Staley [...] respiratory rate E&M 18 /min Dell Staley weight E&M 293.4 [lb_av] Kassandra coker height [...] [employer] 3.5-5.2 sodium, serum 141 mmol/L [employer] [phone]/04/ 15 urea nitrogen/creatinine ratio, serum 16 [employer] [...] 3.5-5.2 High sodium, serum 143 mmol/L [employer] [phone]/04/ 16 urea nitrogen/creatinine ratio, serum 19 [employer] [...] iron binding capacity, unsaturated 214 ug/dL [employer] [phone]/04/ 16 iron binding capacity, total 278 ug/dL [employer] [phone]/04/ 16 lipoprotein, beta, serum, point, quantitative, calculated 39 mg/dL [employer] 0-99 very low density lipoproteins 21 mg/dL [employer] 5-40 HDL cholesterol, serum 59 mg/dL [employer] >39 triglyceride, serum, random 104 mg/dL [employer] 0-149 cholesterol, serum 119 mg/dL [employer] [phone]/04/ 16 basophil count, absolute 0.1 x10E3/uL [employer] [...] Not Estab. platelet count 278 X10E3/UL [employer] [phone]/04/ 16 red blood cell distribution width 13.7 [...] iron binding capacity, unsaturated 242 ug/dL [employer] [phone]/03/ 21 iron binding capacity, total 300 ug/dL [employer] [phone]/03/ 21 free thyroxine index 1.8 [employer] 1.2-4.9 [...] [employer] 0-149 cholesterol, serum 129 mg/dL [employer] [phone]/03/ 21 basophil count, absolute 0.0 x10E3/uL [employer] [...] Not Estab. platelet count 253 X10E3/UL [employer] [phone]/03/ 21 red blood cell distribution width 15.2 [...] [employer] 3.5-5.2 sodium, serum 143 mmol/L [employer] [phone]/03/ 21 urea nitrogen/creatinine ratio, serum 21 [employer] 12-28 eGFR if 90 mL/min/{1.7 3_m2} [employer] >59 eGFR if not 78 mL/min/{1.7 3_m2} [employer] >59 creatinine, serum 0.78 mg/dL [employer] 0.57-1.00 urea nitrogen, blood 16 mg/dL [employer] 8-27 blood glucose, random 94 mg/dL [employer] 65-99 ferritin, serum 169 ng/mL [employer] 15-150 High B-12, serum 477 pg/mL [employer] [phone] rapid plasma reagin antibody screen Non Reactive [facility] Non Reactive prothrombin time (patient) 10.4 s [...] cell distribution width, size density 48.8 fL [facility] granulocytes, percentage of total cells, blood 0.7 % [employer] - nucleated red blood cells as percent of blood leukocytes 0.0 % [facility] - red blood cell (erythrocyte) count, per [...] MOUTH ONCE DAILY 11/08 - 07/29 Sofia Curtis cholecalciferol (vitamin D3) 125 mcg (5,000 unit) [...] DAILY - 08/03 Kassandra Staley VITAMIN D3 75637 UNIT ORAL TABLET completed TAKE ONE TAB BY MOUTH WEEKLY 08/30 - 09/24 Ankur Rubio MD levothyroxine 50 mcg tablet completed 1 tablet by mouth once a day - 01/11 Lisastyon Dickey Cozaar 50 mg tablet completed 2 TAB. DAILY 08/09 - 10/25 Ankur Rubio MD atorvastatin 40 mg tablet active TAKE 1 TABLET BY MOUTH ONCE A DAY 08/09 Sofia Curtis aspirin 81 mg tablet,delayed release (/EC) completed Take 1 tablet by mouth once a day 12/20 - 01/11 Chastity Noble PRAVACHOL 40 MG ORAL TABLET completed ONE [...] no Sharlene Ross smoking status Never smoker [facility] social history E&M S moking History: P [...] Ferrer nson smoking status Never smoker Kassandra Obregonconnie number of grandchildren Efren Byers MD U daniele Byers MD smoking status Never smoker Efren Byers MD social history E&M S moking History: P edwar has never smoked. Efren Byers MD social history reviewed E&M revi ewed - no changes required Efren Byers MD alcohol use no Kassandra Ferrer nson social history E&M S moking History: P atjoan has never smoked. Ankur Rubio MD social history reviewed E&M revi ewed - no changes required Ankur Rubio MD number of grandchildren Ankur Salazar smoking status Never smoker Lia Salazar social history E&M S moking History: P edwar has never smoked. Ankur Rubio MD social history reviewed E&M revi ewed - no changes required Ankur Rubio MD alcohol use no Sofia Sammy elderer smoking status Never smoker Sofia soares social [...] Payer name Policy type / Coverage type [place] red democrat ID AARP MEDICARE ADVANTAGE HMO-POS HMO [id number] [facility] Medicaid 0 [id number] ADVANCE DIRECTIVES Name Date DISCUSSED - NO [...] for thryoid Ankur Rubio MD Cardiology:has colon schelee, has taken iron in psat Ankur Rubio [...] n eg pft, neg pe by ct Anukr Rubio MD Cardiology:239 Ankur Rubio MD Cardiology:calcium on ctneg cath , post nuc Ankur Rubio MD Cardiology follow up:will do ech o and tele [facility] Maricruzmiglia [facility] Cardiology follow up :will repeat echo H er updated medication list for this problem includes: Cozaar 50 Mg Oral Tablet (Losartan potassium) ..... 2 tab. daily Aspirin Adult Low Dose 81 Mg Oral Tablet Delayed Release (Aspirin) ..... One tab by mouth daily Lavern Ventimiglia [facility] Cardiology follow up :cont present treatment reports recent labs per primary H er updated medication list for this problem includes: Zetia 10 Mg Oral Tablet (Ezetimibe) ..... Take one tablet daily Lipitor 40 Mg Oral Tablet (Atorvastatin calcium) ..... One tab. daily Lavern Wynne [facility] Cardiology follow up :controlled H er updated medication list for this problem includes: Cozaar 50 Mg Oral Tablet (Losartan potassium) ..... 2 tab. daily Aspirin Adult Low Dose 81 Mg Oral Tablet Delayed Release (Aspirin) ..... One tab by mouth daily Lavern Wynne [facility] Cardiology:Denies ch est pain. C ontinues [...] 265 Ankur Rubio MD Cardiology:was treatd and huseyin hughes md, MD Cardiology:neg pft, neg pe by ct [...] MD Cardiology Follow up :no pe by zachary Rubio MD Cardiology Follow up :calcuim on ct, will gived statin, no asperin due to eye camp recreation specialist Ankur Rubio MD Cardiology Follow up :recently [...] normal pulmonary function test. Ankur Rubio MD Cardiology: e levated pro bnp [...] paroxymal supraventricular tachycardia. N o diary submitted. Zachary shah 2 was the Primary channel during the [...] supraventricular tachycardia. N o diary submitted. C [employer] 2 was the Primary channel during the analysis. Ankur Rubio MD Cardiology: RHC 2015 P ulmonary Function Diagnosis: E [...] Rubio MD Cardiology;rl[facility] first time:will watcjh Ankur Rbuio MD Cardiology;[facility] first time:neg c xr, bnp [...] ill cath and start asperin and lovastatin Ankur Rubio MD Cardiology;[facility] firs t time:There is mild tricuspid [...] fraction is estimated at 65 %. b cnp 107 Ankur Rubio MD Date Name CT, [...] Cath - L/R - GC DLCO - 37111 FRC - 94823 FVC - 34537 Carotid Duplex Bilat eral Holter Monitor 24 [...] EKG Ankur Rubio MD complete d EKG nAkur Rubio MD complete d Holter, 24 or 48 Ankur Rubio MD co mpleted EKG Ankur Rubio MD complete d Holter, 24 or 48 Ankur Rubio MD co mpleted SNOMED-CT: 27153440 Physical Exam, Performed: Pulse Exam of Foot Efren Byers MD completed SNOMED-CT: 293962290 045449 Current Medications Documented Efren Byers MD completed EKG Ankur Rubio MD complete d SNOMED-CT: 35095666 Physical Exam, Performed: Pulse Exam of Foot Ankur Rubio MD completed Event Monitor Rachial Pardeep completed EKG Ankur Rubio MD complete d SNOMED-CT: 922401851 531703 Current Medications Documented Ankur Rubio MD completed SNOMED-CT: 002832611 527685 Current Medications Documented Ankur Rubio MD completed SNOMED-CT: 459580037 705357 Current Medications Documented Ankur Rubio MD completed Holter, 24 or 48 Ankur Rubio MD co mpleted FVC - 34768 Ankur Rubio MD complet ed FRC - 85495 Ankur Rubio MD complet ed DLCO - 19589 Ankur Rubio MD comple aquiles EKG Ankur Rubio MD complete d
--- OUTSIDE RECORDS SUMMARY | 2024-11-06 15:57 | XMS_ITS | Clinical Summary ---
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 5 Active losartan (COZAAR) 100 mg tablet Take 1 tablet (100 mg total) by mouth daily 2 Active ezetimibe (ZETIA) 10 mg tablet Take 1 tablet (10 mg total) by mouth daily 1 Active Jardiance 10 mg tablet 1 tablet (10 mg total) 5 Active atorvastatin (LIPITOR) 40 mg tablet Take 1 tablet (40 mg total) by mouth daily 8 Active sertraline (ZOLOFT) 100 mg tablet Take 1 tablet (100 mg total) by mouth daily Active acetaminophen 500 mg capsuleIndicati ons:Pain Take 2 capsules (1,000 mg total) by mouth every 6 (six) hours 5 Active cholecalciferol (VITAMIN D-3) 1,000 unit capsule Take 1 capsule (1,000 Units total) by mouth daily 5 09/19/19 26 Active gabapentin (NEURONTIN) 300 mg capsule Take 1 capsule (300 mg total) by mouth 2 (two) times a day 5 09/18/19 26 Active methocarbamoL (ROBAXIN) 500 mg tablet Take 1 tablet (500 mg total) by mouth every 8 (eight) hours 5 Active senna-docusate (PERICOLACE) 8.6-50 mg Take 2 tablets by mouth 2 (two) times a day 5 Active aspirin 81 mg chewable tablet Take 1 tablet (81 mg total) by mouth 2 (two) times a day for 14 days, THEN 1 tablet (81 mg total) daily. 5 10/02/19 26 Active Active Problems Problem Noted Date Diagnosed Date Depression 09/16/2024 Assessment & Plan (09/16/2024 9:12 AM CDT): Chronic Sertraline 50 mg daily Acute pain 09/16/2024 Assessment & Plan (09/16/2024 9:15 AM CDT): Gabapentin 300 bid Methocarbamol 500 mg Q8hr APAP 1000 mg Q6hr Oxycodone 2.5 mg Q4 prn Bowel regimen Dulcolax supp prn Miralax and Senna scheduled Encounter for medication review 09/16/2024 Assessment & Plan (09/17/2024 8:16 AM CDT): Completed [id number] - [place], [place] - [address] [facility] & [address] [facility] [phone] [x]Treatment note completed Abnormal finding on CT scan 09/14/2024 Assessment & Plan (09/17/2024 9:48 AM CDT): SEE Right lung nodule 09/17 Review of chart, imaging no report of lung nodule in this admission work up and management. Periprosthetic fracture of proximal end of femur 09/13/2024 Assessment & Plan (09/16/2024 9:03 AM CDT): - Ortho c/s 09/13 OR (Ortho- [facility]) R femur IMN WBAT RLE Sutures remove in 3 weeks Ok for DVT prophylaxis 09/16 dressing changed by orthopedic and picture placed in chart. Pt states she is wheelchair bound at baseline due to hip arthritis needing replacement, does pivot to and from chair, bathroom. Follow with Dr. Juarez on 10/24 at 11 am, weight bearing as tolerated to right lower extremity, post op DVT Prophylaxis Eliquis 2.5 mg PO BID x4 weeks Fall from chair 09/13/2024 Assessment & Plan (09/13/2024 10:17 AM CDT): fall from chair and landing on right side. + HS + LOS Closed fracture of one rib of right side 025 Assessment & Plan (09/13/2024 10:18 AM CDT): age indeterminate R rib fx -IS 1600, no chest pain Type 2 diabetes mellitus 09/13/2024 Assessment & Plan (09/16/2024 9:00 AM CDT): HgbA1C 5.5 Glucose has been 100's since admission in chemistry On Jardiance at home - hold during admission resume at discharge. Primary hypertension 09/13/2024 Assessment & Plan (09/17/2024 8:18 AM CDT): Chronic Home Losartan 100 mg daily, hold for hypotension. Resume when indicated Rheumatoid arthritis 09/13/2024 Glaucoma 09/13/2024 Assessment & Plan (09/13/2024 10:24 AM CDT): Home Latanoprost 125 mcg drop Right eye Discharge planning issues 09/13/2024 Assessment & Plan (09/17/2024 8:16 AM CDT): 4/4 OR with Ortho 4/ PT/OT 09/15 Patient is medically stable for discharge, SW/CM updated. Discharge pending facility acceptance Other fracture of right femu r, initial encounter for closed fracture 09/12/2024 Bladder disorder 05/10/2023 Assessment & Plan (09/16/2024 6:44 AM CDT): Chronic, pt straight cath at home twice per day Continue swan until discharge Iron deficiency 2017 Neuropathy 08/09/2017 Fatty liver 03/15/2016 Overview (09/16/2024): neg hep screen Hypothyroidism 04/02/2015 Assessment & Plan (09/17/2024 8:17 AM CDT): Chronic Home Levothyroxine 75 mcg 09/17/2024 TSH 4.11 Free T4 0.91 no change in regimen continue to follow up with pcp for management. Venous insufficiency 04/02/2015 Supraventricular tachycardia 04/02/2015 Hypercholesterolemia 04/02/2015 Vitamin D deficiency 03/09/2015 Other abnormal glucose 03/09/2015 Overview (10/31/2024): did not chao metofome Arteriosclerosis of coronary artery 02/26/2015 Overview (09/16/2024): neg caraotid Assessment & Plan (09/16/2024 9:13 AM CDT): Home Aspirin resume, Atorvastatin 40 mg daily Influenza due to unidentifie d influenza virus with other respiratory manifestations 02/26/2015 Assessment & Plan (09/13/2024 10:23 AM CDT): Home Montelukast Obesity 02/26/2015 Overview (09/16/2024): gpl1 not covred Assessment & Plan (09/16/2024 9:03 AM CDT): Body mass index is 45.73 kg/m . RD consult Shortness of breath 02/26/2015 Chronic diastolic (congestive) heart failure Encounters Date Type Department Care Team Description 10/31/2024 12:23 PM CDT - 10/31/2024 11:59 PM CDT Hospital Encounter [facility] [address] [place] [id number] Other fracture of right femur, initial encounter for closed fracture (HCC) Discharge Disposition: Discharge to home or self care 10/31/2024 12:00 PM CDT Office Visit [facility] Orth[facility] [address] [facility] 6th [place] [address] [place] [address] Cindy Juarez MD Other fracture of right femur, initial encounter for closed fracture (HCC) (Primary Dx) 10/24/2024 Telephone [facility] [address] [facility] 6th [place] [address] [place] [address] Chrissy Bernal, MS 10/24/2024 Telephone [facility] [address] [facility] 6th [place] [address] [place] [address] Chrissy Bernal, MS 09/17/2024 Documentation [facility] [place] [address] [place] [address] Shannan Mcintosh RN 09/13/2024 10:40 AM CDT - 09/13/2024 2:20 PM CDT Surgery [facility] Operating Room [address] [place] [address] Cindy Juarez MD INTRAMEDULLARY NAILING FEMUR - RETROGRADE 09/13/2024 10:08 AM CDT Anesthesia Event [facility] [address] [place] [address] Jae Wagner MD Saltz, Dolores, 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 09/13/2024 1:47 AM CDT - 09/17/2024 4:10 PM CDT Hospital Encounter [facility] [address] [place] [address] Elias Dunham Jr., MD Ngo, MD Kolby Echevarria Opeolu Makanju, MD [facility], Marschall Brantling, MD Other fracture of right femur, initial encounter for closed fracture (HCC) (Primary Dx); Periprosthetic supracondylar fracture of femur, initial encounter; Fall, initial encounter Discharge Disposition: Discharge to [facility] 09/13/2024 Orders Only [facility] Orthopa[facility] [address] [place] [address] 6th [place] [address] [place] [address] Cindy Juarez MD Other fracture of right femur, initial encounter for closed fracture (HCC) (Primary Dx) from Last 3 Months Social History Tobacco Use Types Packs/Day Years Used Date Smoking Tobacco: Never Tobacco Cessation:Counseling Given: Not Answered [facility] Utilities Answer Date Recorded In the past 12 months has e Hopela, gas, oil, or water company threatened to shut off services in your home? No 09/13/2024 Humiliation, Afraid, Rape, and Kick questionnair e Answer Date Recorded Within the last year, have y ou been afraid of your partner or ex-partner? No 09/13/2024 Within the last year, have y ou been humiliated or emotionally abused in other ways by your partner or ex-partner? No 09/13/2024 Within the last year, have y ou been kicked, hit, slapped, or otherwise physically hurt by your partner or ex-partner? No 09/13/2024 Sexually Abused Not on file 09/13/2024 Social Connection and Isolat ion Panel [NHANES] Answer Date Recorded In a typical week, how many times do you talk on the phone with family, friends, or neighbors? More than three times a week 09/13/2024 How often do you get togethe r with friends or relatives? More than three times a week 09/13/2024 How often do you attend chur ch or methodist services? Never 09/13/2024 Do you belong to any clubs o r organizations such as roman catholic groups, unions, fraternal or athletic groups, or school groups? No 09/13/2024 How often do you attend meet ings of the clubs or organizations you belong to? Never 09/13/2024 Are you , , di vorced, , never , or living with a partner? 09/13/2024 AUDIT-C Answer Date Recorded Q1: How often do you have a drink containing alcohol? Never 09/13/2024 Q2: How many drinks containi ng alcohol do you have on a typical day when you are drinking? Patient does not drink Q3: How often do you have si x or more drinks on one occasion? Never 09/13/2024 Overall Financial Resource Strain (CARDIA) Answe r Date Recorded How hard is it for you to pa y for the very basics like food, housing, medical care, and heating? Not very hard 09/13/2024 [facility] Occup[facility] - Occupational Stress Questionnaire Answer Date Recorded Do you feel stress - tense, restless, nervous, or anxious, or unable to sleep at night because your mind is troubled all the time - these days? Not at all 09/13/2024 Exercise Vital Sign Answer Date Recorde d On average, how many days pe r week do you engage in moderate to strenuous exercise (like a brisk walk)? 0 days 09/13/2024 On average, how many minutes do you engage in exercise at this level? 0 min 09/13/2024 Hunger Vital Sign Answer Date Recorded Within the past 12 months, y ou worried that your food would run out before you got the money to buy more. Never true 09/14/19 25 Within the past 12 months, t he food you bought just didn't last and you didn't have money to get more. Never true 09/13/2024 PRAPARE - Transportation Answer Date Re corded In the past 12 months, has l ack of transportation kept you from medical appointments or from getting medications? No 09/2024 In the past 12 months, has l ack of transportation kept you from meetings, work, or from getting things needed for daily living? No 09/13/2024 Housing Stability Vital Sign Answer Luis Miguel e Recorded In the last 12 months, was t here a time when you were not able to pay the mortgage or rent on time? No 09/13/2024 In the past 12 months, how m any times have you moved where you were living? 0 09/13/2024 At any time in the past 12 m [facility], were you homeless or living in a mcc (including now)? No 09/13/2024 Personal Safety Answer Date Recorded Have you ever been in or are you currently in a harmful physical or emotional relationship or is someone making you feel afraid or unsafe? 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 Gender Identity Not on file Sexual Orientation Not on file Obstetrics History Last Filed Vital Signs Vital Sign Reading Time Taken Comments Blood Pressure 117/63 09/17/2024 3:00 PM CDT Pulse 78 09/17/2024 11:16 AM CDT Temperature 37.1 C (98.8 F) 09/17/2024 11:16 AM CDT Respiratory Rate 18 09/17/2024 11:16 AM CDT Oxygen Saturation 95% 09/17/2024 11:08 AM CDT Inhaled Oxygen Concentration - - Weight 113.4 kg (250 lb) 09/13/2024 3:24 AM CDT Height 157.5 cm (5' 2) 09/13/2024 3:24 AM CDT Body Mass Index 45.73 09/13/2024 3:24 AM CDT Plan of Treatment Health Maintenance Due Date Last Done Comments Albumin Creatinine Ratio, Urine 1948 Depression Screening 1948 Hepatitis C Screening 1948 Osteoporosis Screening-Bone Density Scan 1948 Dilated Eye Exam 1948 Foot Exam 1948 Lipid Panel 1948 DTaP/Tdap/Td Vaccine (1 - Tdap) 08/31/1959 Hepatitis B Screening 1966 Pneumococcal vaccine 65+ (1 of 2 - PCV) 08/31/1967 Zoster Vaccine (1 of 2) 1998 Well Visit 65+ 2013 Influenza Vaccine (Season Ended) 2025 Hemoglobin A1C 03/16/2025 09/14/2024, 09/13/2024 eGFR 09/16/2025 09/16/2024, 04/0 11/2024, 09/13/2024, Additional history exists Fall Risk Assessment 09/17/2025 09/17/2024 Medical Devices Implanted Type Area Ring Packer Device Identifier Shelf Expiration Date Model / Serial / Lot [employer] Nail Intramedullary Long Femoral Retrograde T2 Alpha [id number] Titanium [id number] - [id number] Implanted:Qty: 1 on 09/13/2024 by Cindy Juarez MD at [facility] Nail Right: Femur [employer] 01/09/2034 [id number] S / / [id number] [employer] Screw Bone 5mm 80mm Lock Strl 2361-5080s - [id number] Implanted:Qty: 1 on 09/13/2024 by Cindy Juarez MD at [facility] Screw Right: Femur [employer] [id number] 05/11/2034 1557-4766 S / / [id number] [employer] Screw Bone 5mm 75mm Lock Strl 2361-5075s - [id number] Implanted:Qty: 1 on 09/13/2024 by Cindy Juarez MD at [facility] Screw Right: Femur [employer] [id number] 06/11/2034 6081-1735 S / / [id number] [employer] Screw Bone 5mm 60mm Lock Strl 2361-5060s - [id number] Implanted:Qty: 1 on 09/13/2024 by Cindy Juarez MD at [facility] Screw Right: Femur [employer] [id number] 05/11/2034 5774-7814 S / / [id number] [employer] Screw Bone 5mm 80mm Lock Strl 2361-5080s - [id number] Implanted:Qty: 1 on 09/13/2024 by Cindy Juarez MD at [facility] Screw Right: Femur [employer] [id number] 01/09/2034 6748-0956 S / / [id number] [employer] Screw Bone 5mm 40mm T2 Alpha Lock Strl 2360-5040s - [id number] Implanted:Qty: 1 on 09/13/2024 by Cindy Juarez MD at [facility] Screw Right: Femur [employer] [id number] 05/11/2034 4036-2919 S / / [id number] [employer] Screw Bone 5mm 40mm T2 Alpha Lock Strl 2360-5040s - [id number] Implanted:Qty: 1 on 09/13/2024 by Cindy Juarez MD at [facility] Screw Right: Femur [employer] [id number] 04/11/2034 1792-0901 S / / [id number] [employer] Screw Bone 5mm 45mm T2 Alpha Lock Strl 8385-5110s - [id number] Implanted:Qty: 1 on 09/13/2024 by Cindy Juarez MD at [facility] Screw Right: Femur [employer] [id number] 04/11/203423593345-2310 S / / [id number] Procedures Procedure Name Priority Date/Time Associated Diagnosis Comments XR FEMUR RIGHT 2 OR MORE VIEWS Schedule Routine, Read Routine (OP Routine) 10/31/2024 12:49 PM CDT Other fracture of right femur, initial encounter for closed fracture (HCC) T4, FREE Routine 09/16/2024 8:30 PM CDT TSH Routine 09/16/2024 8:30 PM CDT POCT GLUCOSE DEVICE Routine 09/16/2024 8 :28 AM CDT EGFR Timed 09/16/2024 12:19 AM CDT BASIC METABOLIC PANEL Timed 09/16/2024 12:19 AM CDT CBC WITHOUT DIFFERENTIAL Timed 09/16/2024 12:19 AM CDT MAGNESIUM Timed 09/16/2024 12:19 AM CDT PHOSPHORUS Timed 09/16/2024 12:19 AM CDT EGFR Timed 09/15/2024 4:02 AM CDT BASIC METABOLIC PANEL Timed 09/15/2024 4:02 AM CDT CBC WITHOUT DIFFERENTIAL Timed 09/15/2024 4:02 AM CDT MAGNESIUM Timed 09/15/2024 4:02 AM CDT PHOSPHORUS Timed 09/15/2024 4:02 AM CDT ALBUMIN Timed 09/13/2024 8:40 PM CDT HEMOGLOBIN A1C Timed 09/13/2024 8:40 PM CDT EGFR Timed 09/13/2024 8:40 PM CDT BASIC METABOLIC PANEL Timed 09/13/2024 8:40 PM CDT CBC WITHOUT DIFFERENTIAL Timed 09/13/2024 8:40 PM CDT MAGNESIUM Timed 09/13/2024 8:40 PM CDT PHOSPHORUS Timed 09/13/2024 8:40 PM CDT CBC WITHOUT DIFFERENTIAL STAT 09/13/2024 6:42 PM CDT ECG 12-LEAD STAT 09/13/2024 6:19 PM CDT POCT GLUCOSE DEVICE Routine 09/13/2024 2 :19 PM CDT ND AN PROCEDURE PLACEHOLDER Routine 09/13/2024 1:52 PM CDT XR FEMUR RIGHT 2 OR MORE VIEWS IP Routine 09/13/2024 12:17 PM CDT FL FLUOROSCOPY < 1 HOUR IP Routine 09/13/2024 11:49 AM CDT ND AN PROCEDURE PLACEHOLDER Routine 09/13/2024 11:12 AM CDT ND AN ELECTIVE ENDOTRACHEAL AIRWAY Routine 09/13/2024 11:12 AM CDT INTRAMEDULLARY NAILING FEMUR - RETROGRADE 09/13/2024 10:10 AM CDT Other fracture of right femur, initial encounter for closed fracture (HCC) ND CRITICAL CARE ILL/INJURED PATIENT INIT 30-74 MIN Routine 09/13/2024 6:52 AM CDT B CHECK SAMPLE STAT 09/13/2024 3:57 AM CDT XR TRANSFER OF OUTSIDE FILMS Routine 09/13/2024 3:29 AM CDT XR FEMUR RIGHT 2 OR MORE VIEWS ED 09/13/2024 3:22 AM CDT XR TIBIA FIBULA RIGHT2 VIEWS ED 09/13/2024 3:[address] KNEE RIGHT WO CONTRAST ED 09/13/2024 3:[address] HEAD AND CERVICAL SPINE WO CONTRAST ED 09/13/2024 3:[address] RECON THORACIC AND LUMBAR SPINE W CONTRAST ED 09/13/2024 3:[address] CHEST ABDOMEN PELVIS W CONTRAST ED 09/13/2024 3:13 AM CDT XR TRANSFER OF OUTSIDE FILMS Routine 09/13/2024 2:57 AM CDT XR TRANSFER OF OUTSIDE FILMS ED 09/13/2024 2:33 AM CDT POCT CREATININE - DEVICE Routine 09/13/2024 2:24 AM CDT EGFR STAT 09/13/2024 2:00 AM CDT DIFFERENTIAL AUTO STAT 09/13/2024 2:0 0 AM CDT TYPE AND SCREEN STAT 09/13/2024 2:00 AM CDT PROTIME-INR STAT 09/13/2024 2:00 AM CDT APTT STAT 09/13/2024 2:00 AM CDT CBC WITH AUTO DIFFERENTIAL STAT 09/13/2024 2:00 AM CDT BASIC METABOLIC PANEL STAT 09/13/2024 2:00 AM CDT XR CHEST 1 VIEW ED 09/13/2024 2:00 AM CDT from Last 3 Months Results * XR Femur Right 2 or More Views (10/31/2024 12:49 PM CDT) Anatomical Region Laterality Modality Lower Extremities, Thigh, Femur Right Computed Radiography 10/31/2024 1:02 PM CDT Impressions 10/31/2024 1:02 PM CDT 1. Healing internally fixated right distal femoral periprosthetic fracture. Electronically signed by: Carlos Solomon D.O. Narrative 10/31/2024 1:02 PM CDT EXAMINATION: XR FEMUR RIGHT 2 OR MORE VIEWS HISTORY: Fracture follow-up COMPARISON: 09/13/2024 FINDINGS: Healing internally fixated distal femoral periprosthetic fracture stabilized by an antegrade intramedullary nail with proximal and distal interlocking screws. The hardware is intact. Partially evaluated right total knee arthroplasty in expected position. 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 Moderate right sacroiliac joint osteoarthritis. Procedure Note Carlos Solomon DO - 10/31/2024 EXAMINATION: XR FEMUR RIGHT 2 OR MORE VIEWS HISTORY: Fracture follow-up COMPARISON: 09/13/2024 FINDINGS: Healing internally fixated distal femoral periprosthetic fracture stabilized by an antegrade intramedullary nail with proximal and distal interlocking screws. The hardware is intact. Partially evaluated right total knee arthroplasty in expected position. 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 Moderate right sacroiliac joint osteoarthritis. IMPRESSION: 1. Healing internally fixated right distal femoral periprosthetic fracture. Electronically signed by: Carlos Solomon D.O. Cindy Juarez MD IMG XR PROCEDURES Final Result * TSH (09/16/2024 8:30 PM CDT) [facility] Thyroid Stimulating Hormone 4.11 0.30 - 4.20 mcIUnit/mL Blood 09/16/2024 8:30 PM CDT 09/16/2024 9:32 PM CDT Clover Schmid OPERATIONS AND MAINTENANCE MANAGER LAB BLOOD ORDERABLES Final Result [facility] [place] [address] * T4, free (09/16/2024 8:30 PM CDT) [facility] Free T4 0.91 0.90 - 1.70 ng/dL Blood 09/16/2024 8:30 PM CDT 09/16/2024 9:32 PM CDT Clover Schmid NP LAB BLOOD ORDERABLES Final Result Performing Organization Address [facility] Co de Phone Number [facility] [place] [address] * POCT glucose (09/16/2024 8:28 AM CDT) [facility] Glucose, POC 86 70 - 199 mg/dL Blood 09/16/2024 8:28 AM CDT 09/16/2024 8:28 AM CDT Josie Youngblood MD LAB POCT ORDERABLES - DEVICE Fi nal Result Performing Organization Address City/[facility] Co de Phone Number [facility] [place] [address] * eGFR (09/16/2024 12:19 AM CDT) [facility] eGFR 68 >=60 mL/min/1. 73 m2 Comment: Interpretive Data Reference Interval Normal >/= 90 mL/min/1.73m2 Mildly decreased* 60 - 89 mL/min/1.73m2 Mildly to moderately decreased 45 - 59 mL/min/1.73m2 Moderately to severely decreased 30 - 44 mL/min/1.73m2 Severely decreased 15 - 29 mL/min/1.73m2 Kidney Failure < 15 mL/min/1.73m2 *Relative to young adult level Estimated glomerular filtration rate is determined by the 2020 CKD-EPI equation recommended by the National Kidney Foundation (A Unifying Approach to GFR Estimation: Recommendations of the NKF-ASK Task Force on Reassessing the Inclusion of Race in Diagnosing Kidney Disease, JASN 2020). The CKD-EPI equation should not be used for patients with unstable renal function and has not been validated in children and those over 70. Current interpretive data was last reviewed 2021. Blood 09/16/2024 12:1 9 AM CDT 09/16/2024 12:32 AM CDT us Josie Youngblood MD LAB BLOOD ORDERABLES Final Resu lt [facility] Department [place] [address] * (ABNORMAL) CBC without differential (09/16/2024 12:19 AM CDT) WBC 7.54 3.80 - 9.90 K/cumm Hgb 8.8(L) 11.9 - 15.5 g/dL [facility] Hct 28.2(L) 35.6 - 45.5 % [facility] Plt 163 150 - 400 K/cumm [facility] MPV 9.8 9.1 - 12.3 fL [facility] RBC 3.01(L) 3.90 - 5.20 M/cumm [facility] MCV 93.7 81.3 - 96.4 fL [facility] MCH 29.2 27.1 - 33.3 pg [facility] MCHC 31.2(L) 32.3 - 35.7 g/dL [facility] RDW CV 15.0(H) 11.1 - 14.9 % [facility] RDW SD 51.8(H) 35.7 - 48.1 fL [facility] NRBC abs 0.00 0.00 - 0.01 K/cumm [facility] Blood 09/16/2024 12:1 9 AM CDT 09/16/2024 12:32 AM CDT Josie Youngblood MD LAB BLOOD ORDERABLES Final Resu lt Performing Organization Address City/[facility] Co de Phone Number [facility] Department [place] [address] * Phosphorus (09/16/2024 12:19 AM CDT) Pathologist [facility] Phosphorus, pl 2.6 2.3 - 4.5 mg/dL Blood 09/16/2024 12:1 9 AM CDT 09/16/2024 12:32 AM CDT Josie Youngblood MD LAB BLOOD ORDERABLES Final Resu lt Performing Organization Address City/[facility] Co de Phone Number [facility] Department [place] [address] * Magnesium (09/16/2024 12:19 AM CDT) Pathologist [facility] Magnesium 1.7 1.4 - 2.5 mg/dL Blood 09/16/2024 12:1 9 AM CDT 09/16/2024 12:32 AM CDT Josie Youngblood MD LAB BLOOD ORDERABLES Final Resu lt Performing Organization Address City/[facility] Co de Phone Number [facility] [place] [address] * Basic metabolic panel (09/16/2024 12:19 AM CDT) Sodium 140 135 - 145 mmol/L Potassium, pl 3.8 3.3 - 4.9 mmol/L [facility] Chloride 107 97 - 110 mmol/L [facility] CO2 27 22 - 32 mmol/L [facility] Anion gap 6 2 - 15 mmol/L [facility] BUN 17 6 - 25 mg/dL [facility] Creatinine 0.88 0.60 - 1.10 mg/dL [facility] Glucose 106 70 - 199 mg/dL [facility] Comment: Interpretive Data Fasting glucose >/= 126 mg/dl is diagnostic for diabetes. Fasting is defined as no caloric intake for at least 8 hours. Fasting glucose between 100 mg/dl to 125 mg/dl is diagnostic of prediabetes. In a patient with classic symptoms of hyperglycemia or hyperglycemic crisis, a random glucose >/= 200 mg/dl is diagnostic for diabetes. In the absence of unequivocal hyperglycemia, results should be confirmed by repeat testing. The classification and Diagnosis of Diabetes Diabetes Care 2021; 46: S19-S40. Current interpretive data was last revised 2022. Calcium 8.6 8.5 - 10.3 mg/dL [facility] Blood 09/16/2024 12:1 9 AM CDT 09/16/2024 12:32 AM CDT Josie Youngblood MD LAB BLOOD ORDERABLES Final Resu lt [facility] [place] [address] * (ABNORMAL) eGFR (09/15/2024 4:02 AM CDT) [facility] eGFR 59(L) >=60 mL/min/1. 73 m2 Comment: Interpretive Data Reference Interval Normal >/= 90 mL/min/1.73m2 Mildly decreased* 60 - 89 mL/min/1.73m2 Mildly to moderately decreased 45 - 59 mL/min/1.73m2 Moderately to severely decreased 30 - 44 mL/min/1.73m2 Severely decreased 15 - 29 mL/min/1.73m2 Kidney Failure < 15 mL/min/1.73m2 *Relative to young adult level Estimated glomerular filtration rate is determined by the 2020 CKD-EPI equation recommended by the National Kidney Foundation (A Unifying Approach to GFR Estimation: Recommendations of the NKF-ASK Task Force on Reassessing the Inclusion of Race in Diagnosing Kidney Disease, JASN 2020). The CKD-EPI equation should not be used for patients with unstable renal function and has not been validated in children and those over 70. Current interpretive data was last reviewed 2021. Blood 09/15/2024 4:02 AM CDT 09/15/2024 4:24 AM CDT Josie Youngblood MD LAB BLOOD ORDERABLES Final Resu lt [facility] [place] [address] * (ABNORMAL) CBC without differential (09/15/2024 4:02 AM CDT) WBC 8.54 3.80 - 9.90 K/cumm Hgb 8.2(L) 11.9 - 15.5 g/dL [facility] Hct 26.2(L) 35.6 - 45.5 % [facility] Plt 162 150 - 400 K/cumm [facility] MPV 10.1 9.1 - 12.3 fL [facility] RBC 2.87(L) 3.90 - 5.20 M/cumm [facility] MCV 91.3 81.3 - 96.4 fL [facility] MCH 28.6 27.1 - 33.3 pg [facility] MCHC 31.3(L) 32.3 - 35.7 g/dL [facility] RDW CV 14.8 11.1 - 14.9 % [facility] RDW SD 49.7(H) 35.7 - 48.1 fL [facility] NRBC abs 0.00 0.00 - 0.01 K/cumm [facility] Blood 09/15/2024 4:02 AM CDT 09/15/2024 4:24 AM CDT Josie Youngblood MD LAB BLOOD ORDERABLES Final Resu lt Performing Organization Address City/[facility] Co de Phone Number [facility] [place] [address] * Phosphorus (09/15/2024 4:02 AM CDT) Pathologist [facility] Phosphorus, pl 2.6 2.3 - 4.5 mg/dL Blood 09/15/2024 4:02 AM CDT 09/15/2024 4:24 AM CDT Josie Youngblood MD LAB BLOOD ORDERABLES Final Resu lt Performing Organization Address [facility] Co de Phone Number [facility] [place] [address] * Magnesium (09/15/2024 4:02 AM CDT) [facility] Magnesium 2.0 1.4 - 2.5 mg/dL Blood 09/15/2024 4:02 AM CDT 09/15/2024 4:24 AM CDT Josie Youngblood MD LAB BLOOD ORDERABLES Final Resu lt Performing Organization Address [facility] Co de Phone Number [facility] [place] [address] * (ABNORMAL) Basic metabolic panel (09/15/2024 4:02 AM CDT) [facility] Sodium 140 135 - 145 mmol/L Potassium, pl 3.9 3.3 - 4.9 mmol/L [facility] Chloride 109 97 - 110 mmol/L [facility] CO2 26 22 - 32 mmol/L [facility] Anion gap 5 2 - 15 mmol/L [facility] BUN 18 6 - 25 mg/dL [facility] Creatinine 0.99 0.60 - 1.10 mg/dL [facility] Glucose 100 70 - 199 mg/dL [facility] Comment: Interpretive Data Fasting glucose >/= 126 mg/dl is diagnostic for diabetes. Fasting is defined as no caloric intake for at least 8 hours. Fasting glucose between 100 mg/dl to 125 mg/dl is diagnostic of prediabetes. In a patient with classic symptoms of hyperglycemia or hyperglycemic crisis, a random glucose >/= 200 mg/dl is diagnostic for diabetes. In the absence of unequivocal hyperglycemia, results should be confirmed by repeat testing. The classification and Diagnosis of Diabetes Diabetes Care 202; 46: S19-S40. Current interpretive data was last revised 2022. Calcium 8.3(L) 8.5 - 10.3 mg/dL [facility] Blood 09/15/2024 4:02 AM CDT 09/15/2024 4:24 AM CDT us Josie Youngblood MD LAB BLOOD ORDERABLES Final Resu lt [facility] [place] [address] * eGFR (09/13/2024 8:40 PM CDT) eGFR 65 >=60 mL/min/1. 73 m2 Comment: Interpretive Data Reference Interval Normal >/= 90 mL/min/1.73m2 Mildly decreased* 60 - 89 mL/min/1.73m2 Mildly to moderately decreased 45 - 59 mL/min/1.73m2 Moderately to severely decreased 30 - 44 mL/min/1.73m2 Severely decreased 15 - 29 mL/min/1.73m2 Kidney Failure < 15 mL/min/1.73m2 *Relative to young adult level Estimated glomerular filtration rate is determined by the 2020 CKD-EPI equation recommended by the National Kidney Foundation (A Unifying Approach to GFR Estimation: Recommendations of the NKF-ASK Task Force on Reassessing the Inclusion of Race in Diagnosing Kidney Disease, JASN 2020). The CKD-EPI equation should not be used for patients with unstable renal function and has not been validated in children and those over 70. Current interpretive data was last reviewed 2021. Blood 09/13/2024 8:40 PM CDT 09/13/2024 9:34 PM CDT Josie Youngblood MD LAB BLOOD ORDERABLES Final Resu lt Performing Organization Address [facility] Co de Phone Number [facility] Department [place] [address] * (ABNORMAL) CBC without differential (09/13/2024 8:40 PM CDT) Pathologist [facility] WBC 11.04(H) 3.80 - 9.90 K/cumm Hgb 9.7(L) 11.9 - 15.5 g/dL [facility] Hct 30.4(L) 35.6 - 45.5 % [facility] Plt 167 150 - 400 K/cumm [facility] MPV 10.7 9.1 - 12.3 fL [facility] RBC 3.29(L) 3.90 - 5.20 M/cumm [facility] MCV 92.4 81.3 - 96.4 fL [facility] MCH 29.5 27.1 - 33.3 pg [facility] MCHC 31.9(L) 32.3 - 35.7 g/dL [facility] RDW CV 15.0(H) 11.1 - 14.9 % [facility] RDW SD 50.4(H) 35.7 - 48.1 fL [facility] NRBC abs 0.00 0.00 - 0.01 K/cumm [facility] Blood 09/13/2024 8:40 PM CDT 09/13/2024 9:35 PM CDT Josie Youngblood MD LAB BLOOD ORDERABLES Final Resu lt [facility] Department [place] [address] * Phosphorus (09/13/2024 8:40 PM CDT) Phosphorus, pl 3.1 2.3 - 4.5 mg/dL Blood 09/13/2024 8:40 PM CDT 09/13/2024 9:34 PM CDT Josie Youngblood MD LAB BLOOD ORDERABLES Final Resu lt Performing Organization Address [facility] Co de Phone Number [facility] [place] [address] * Magnesium (09/13/2024 8:40 PM CDT) Pathologist [facility] Magnesium 1.4 1.4 - 2.5 mg/dL Blood 09/13/2024 8:40 PM CDT 09/13/2024 9:34 PM CDT Josie Youngblood MD LAB BLOOD ORDERABLES Final Resu lt Performing Organization Address [facility] Phone Number [facility] [place] [address] * Hemoglobin A1c (09/13/2024 8:40 PM CDT) Pathologist [facility] Hgb A1C 5.5 4.0 - 5.6 % Estimated Average Glucose 111 mg/dL [facility] Comment: The ADA recommends reporting an estimated Average Glucose (eAG) with all Hemoglobin A1c results using the equation derived from a study of 507 normal and diabetic adults. Minority populations were underrepresented and children were not included. (Diabetes Care 2020; 43(S1): S66-S76). The eAG is not equivalent to a fasting glucose. Blood 09/13/2024 8:40 PM CDT 09/13/2024 9:38 PM CDT Josie Youngblood MD LAB BLOOD ORDERABLES Final Resu lt Performing Organization Address [facility] [place] [address] * (ABNORMAL) Albumin (09/13/2024 8:40 PM CDT) Albumin 2.9(L) 3.5 - 5.0 g/dL Blood 09/13/2024 8:40 PM CDT 09/13/2024 9:34 PM CDT Josie Youngblood MD LAB BLOOD ORDERABLES Final Resu lt [facility] [place] [address] * (ABNORMAL) Basic metabolic panel (09/13/2024 8:40 PM CDT) [facility] Sodium 139 135 - 145 mmol/L Potassium, pl 4.0 3.3 - 4.9 mmol/L [facility] Chloride 108 97 - 110 mmol/L [facility] CO2 24 22 - 32 mmol/L [facility] Anion gap 7 2 - 15 mmol/L [facility] BUN 21 6 - 25 mg/dL [facility] Creatinine 0.91 0.60 - 1.10 mg/dL [facility] Glucose 125 70 - 199 mg/dL [facility] Comment: Interpretive Data Fasting glucose >/= 126 mg/dl is diagnostic for diabetes. Fasting is defined as no caloric intake for at least 8 hours. Fasting glucose between 100 mg/dl to 125 mg/dl is diagnostic of prediabetes. In a patient with classic symptoms of hyperglycemia or hyperglycemic crisis, a random glucose >/= 200 mg/dl is diagnostic for diabetes. In the absence of unequivocal hyperglycemia, results should be confirmed by repeat testing. The classification and Diagnosis of Diabetes Diabetes Care 2021; 46: S19-S40. Current interpretive data was last revised 2022. Calcium 8.4(L) 8.5 - 10.3 mg/dL [facility] Blood 09/13/2024 8:40 PM CDT 09/13/2024 9:34 PM CDT Josie Youngblood MD LAB BLOOD ORDERABLES Final Resu lt Performing Organization Address City/[facility] de Phone Number [facility] Department [place] [address] * (ABNORMAL) CBC without differential (09/13/2024 6:42 PM CDT) Pathologist [facility] WBC 12.83(H) 3.80 - 9.90 K/cumm Hgb 9.6(L) 11.9 - 15.5 g/dL [facility] Hct 30.0(L) 35.6 - 45.5 % [facility] Plt 170 150 - 400 K/cumm [facility] MPV 9.9 9.1 - 12.3 fL [facility] RBC 3.25(L) 3.90 - 5.20 M/cumm [facility] MCV 92.3 81.3 - 96.4 fL [facility] MCH 29.5 27.1 - 33.3 pg [facility] MCHC 32.0(L) 32.3 - 35.7 g/dL [facility] RDW CV 15.0(H) 11.1 - 14.9 % [facility] RDW SD 50.8(H) 35.7 - 48.1 fL [facility] NRBC abs 0.00 0.00 - 0.01 K/cumm [facility] Blood 09/13/2024 6:42 PM CDT 09/13/2024 6:56 PM CDT Josie Youngblood MD LAB BLOOD ORDERABLES Final Resu lt Performing Organization Address [facility] Co de Phone Number [facility] [place] [address] * ECG 12 lead (09/13/2024 6:19 PM CDT) Ventricular Rate EKG/Min 79 BPM [facility] Atrial Rate 79 BPM [facility] ND-Interval (MSEC) 170 ms [facility] QRS-Interval (MSEC) 98 ms [facility] QT-Interval (MSEC) 370 ms [facility] QTc [address] [facility] [place] [address] [facility] R [place] -[address] [facility] T [place] 31 degrees [facility] Diagnosis Sinus rhythm with Premature atrial complexes Otherwise normal ECG No previous ECGs available Confirmed by MARCELLUS VALENTIN M.D ([id number]) on 09/17/2024 12:52:27 PM [facility] 09/13/2024 6:19 PM CDT 09/17/2024 12:52 PM CDT Josie Youngblood MD ECG ORDERABLES Final Result Performing Organization Address City/[facility]/ZIP Co de Phone Number [facility] * POCT glucose (09/13/2024 2:19 PM CDT) Glucose, POC 110 70 - 199 mg/dL Blood 09/13/2024 2:19 PM CDT 09/13/2024 2:19 PM CDT Cindy Juarez MD LAB POCT ORDERABLE S - DEVICE Final Result Performing Organization Address City/[facility] Co de Phone Number [facility] [place] [address] * ND AN PROCEDURE PLACEHOLDER (09/13/2024 1:52 PM CDT) Narrative Jae Wagner MD - 09/13/2024 1:52 PM CDT Jae Wagner MD 09/15/2024 1:17 PM Peripheral Block Patient location during procedure: PACU Reason for block: post-op pain management per surgeon request Ultrasound image in chart or stored: yes Block type: single shot Laterality: right Block type: femoral nerve block Staff: Supervising provider: Jae Wagner MD Placed by: Fellow: Savage Hurley MD Procedure prep: Preprocedure checklist: patient identified, procedure contraindications assessed, site marked, procedure consent, surgical consent, IV checked, risks, benefits and alternatives discussed, monitors and equipment checked and timeout performed Patient position: supine Procedure performed while patient: sedate with meaningful contact Monitoring: ECG, oximetry and blood pressure Supplemental O2: nasal cannula Prep solution: chlorhexidine/alcohol PPE: provider hat/mask, sterile gloves, sterile drape and sterile probe cover and gel Peripheral nerve block: Technique: ultrasound guided Needle type: insulated, short-bevel and echogenic Needle gauge: 22 G Needle length: 80 mm Injection assessment: injection made incrementally with constant monitoring, local visualized surrounding nerve on ultrasound, negative aspiration for heme, no paresthesias noted, normal resistance to injection and see flowsheet for medication details Assessment: Block success: full evaluation pending Events: patient tolerated procedure well with no complications us Jae Wagner MD ANESTHESIA ORDERABLE S Final Result * XR Femur Right 2 or More Views (09/13/2024 12:17 PM CDT) Anatomical Region Laterality Modality Lower Extremities, Thigh, Femur Right Computed Radiography 09/13/2024 12:4 4 PM CDT Impressions 09/13/2024 12:44 PM CDT 1. New internally fixated right distal femoral periprosthetic fracture in improved alignment. Electronically signed by: Carlos Solomon D.O. Narrative 09/13/2024 12:44 PM CDT EXAMINATION: XR FEMUR RIGHT 2 OR MORE VIEWS HISTORY: Fracture follow-up COMPARISON: 09/13/2024 FINDINGS: Interval internal fixation of the distal femoral periprosthetic fracture stabilized by an antegrade intramedullary nail with proximal and distal interlocking screws. The hardware is intact and the osseous alignment is improved. Partially visualized right total knee arthroplasty in expected position. 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 Mild soft tissue swelling about the knee with anterior skin marli. Procedure Note Carlos Solomon DO - 09/13/2024 EXAMINATION: XR FEMUR RIGHT 2 OR MORE VIEWS HISTORY: Fracture follow-up COMPARISON: 09/13/2024 FINDINGS: Interval internal fixation of the distal femoral periprosthetic fracture stabilized by an antegrade intramedullary nail with proximal and distal interlocking screws. The hardware is intact and the osseous alignment is improved. Partially visualized right total knee arthroplasty in expected position. 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 Mild soft tissue swelling about the knee with anterior skin marli. IMPRESSION: 1. New internally fixated right distal femoral periprosthetic fracture in improved alignment. Electronically signed by: Carlos Solomon D.O. us Cindy Juarez MD IMG XR PROCEDURES Final Result * FL Fluoroscopy < 1 Hour (09/13/2024 11:49 AM CDT) Narrative [email or web address] - 09/13/2024 11:50 AM CDT The images from this study are not interpreted by Radiology. Please refer to the physician's procedure / OR operative note. us Cindy Juarez MD IMG FLUOROSCOPY ND OCEDURES Final Result [email or web address] * ND AN ELECTIVE ENDOTRACHEAL AIRWAY, ND AN PROCEDURE PLACEHOLDER (09/13/2024 11:12 AM CDT) Narrative Micki Antonio CRNA - 09/13/2024 11:12 AM CDT Micki Antonio CRNA 09/13/2024 11:13 AM Airway Patient location: OR Urgency: elective Date/time: 09/13/2024 10:23 AM Indications for airway management: anesthesia Difficult airway: no Staff: Supervising provider: Jae Wagner MD Placed by: REINSURANCE ACCOUNTANT: Micki Antonio CRNA Emergent airway documentation: Risks and benefits discussed: yes Consent obtained: yes Consent given by: patient Airway prep: Preoxygenated: yes Patient position: sniffing Mask difficulty assessment: 0 - not attempted Spontaneous ventilation during airway: absent Sedation level during airway: GA Final airway details: Final airway type: endotracheal airway Tube type: ETT ETT size: 7.0 mm Cuffed: yes Technique used for successful ETT placement: video laryngoscopy Devices/Methods used in placement: stylet Insertion site: oral Blade type: Boaz Video blade type: Foley Blade size: 3 Cormack-Lehane (video): grade I - full view of glottis Initial cuff pressure: 28 cm H2O Cuff inflated with: air ETT to lips: 22 cm Placement verified by: auscultation and CO2 detection Airway secured with: silk tape Number of attempts: 1no us Jae Wagner MD ANESTHESIA ORDERABLE S Final Result * ND CRITICAL CARE ILL/INJURED PATIENT INIT 30-74 MIN (09/13/2024 6:52 AM CDT) Narrative Elias uDnham Jr., MD - 09/13/2024 6:52 AM CDT Elias Dunham Jr., MD 09/13/2024 2:25 PM Critical Care Performed by: Elias Dunham Jr., MD Authorized by: Audelia Jarrett MD Critical care provider statement: As reflected in the history, physical exam, orders, notes, and/or MDM, I was personally present while the patient was critically ill and provided critical care services for 31 minutes, excluding time involved in separately billable procedures. Critical care was necessary to treat or prevent imminent or life-threatening deterioration of the following condition(s): Work up of alleged rib fractures with hemothorax as detailed by OSH during transfer severe long-bone fracture and severe traumatic condition Critical care was time spent by me providing the following: continuous telemetry, continuous pulse oximetry, continuous capnography, interpretation of bedside monitors, imaging, and arterial/venous lab draws and serial bedside patient exams frequent neurologic exams Eval and reeval, d/w EMS,, reviewing outside hospital notes, d/w trauma, d/w ortho, multiple d/w patient, ordering, documenting reviewing results of labs and imaging, admitting pt decision regarding NPO status and serial abdominal exams spinal immobilization, serial neurovascular exams, acute fracture care and management of limb weight bearing status acute pain control I provided emergent necessary critical care medicine services to this patient. I ordered and reviewed test results and/or imaging studies. I spent time discussing the management of this critically ill patient with consultants and the medical staff. I spent time discussing the management and therapeutic options for this critically ill patient with the patient themselves or with the appropriate designated surrogate decision-maker. I spent time documenting in the medical record. I admitted this patient to a continuous cardiac monitored bed. us Audelia Jarrett MD IN CLINIC/BEDSIDE ORDER DONTA Final Result * Check Sample (09/13/2024 3:57 AM CDT) ABO Rh O Positive [facility] OTHER 09/13/2024 3:57 AM CDT 09/13/2024 4:05 AM CDT us Elias Dunham Jr., MD LAB BLOOD ORDERABLES F inal Result Performing Organization Address [facility] Co de Phone Number [facility] [place] [address] [facility] * XR Outside Reference (09/13/2024 3:29 AM CDT) Impressions [facility] - 09/13/2024 3:29 AM CDT These images are for Reference purposes only and have not been reviewed by [facility] Radiology. There will be no report generated by a [facility] Radiologist. Narrative [facility] - 09/13/2024 3:29 AM CDT EXAMINATION: Images For Reference Purposes Only us Naun Felix MD IMG XR PROCEDURES Fin al Result Performing Organization Address [facility] Co de Phone Number [email or web address] * XR Femur Right 2 or More Views (09/13/2024 3:22 AM CDT) Anatomical Region Laterality Modality Lower Extremities, Thigh, Femur Right Computed Radiography 09/13/2024 4:16 AM CDT Impressions 09/13/2024 11:06 AM CDT Right femur: There is flattening and destruction of the right femoral head, likely representing sequela of avascular necrosis, better seen on dedicated pelvic radiograph. Postsurgical changes of 2 component right knee arthroplasty. No evidence of hardware loosening. Acute periprosthetic comminuted distal right femur fracture with mild posterior displacement of the distal fragments. There is no definite extension to the joint space. Right tibia/fibula: Acute right femoral periprosthetic fracture as described above. No acute fracture of the right tibia or fibula. Dictated by: Juan Renee MD The radiology attending physician has personally reviewed this study, and had reviewed and/or edited this written report and agrees with it. Electronically signed by: Kennedi Mg M.D. Narrative 09/13/2024 11:06 AM CDT EXAMINATION: XR TIBIA FIBULA RIGHT2 VIEWS, XR FEMUR RIGHT 2 OR MORE VIEWS HISTORY: Fall from wheelchair. Procedure Note Kennedi Mg MD - 09/13/2024 EXAMINATION: XR TIBIA FIBULA RIGHT2 VIEWS, XR FEMUR RIGHT 2 OR MORE VIEWS HISTORY: Fall from wheelchair. IMPRESSION: Right femur: There is flattening and destruction of the right femoral head, likely representing sequela of avascular necrosis, better seen on dedicated pelvic radiograph. Postsurgical changes of 2 component right knee arthroplasty. No evidence of hardware loosening. Acute periprosthetic comminuted distal right femur fracture with mild posterior displacement of the distal fragments. There is no definite extension to the joint space. Right tibia/fibula: Acute right femoral periprosthetic fracture as described above. No acute fracture of the right tibia or fibula. Dictated by: Juan Renee MD The radiology attending physician has personally reviewed this study, and had reviewed and/or edited this written report and agrees with it. Electronically signed by: Kennedi Mg M.D. Durga Rogel MD IMG XR PROCEDURES Final Re sult * XR Tibia Fibula Right 2 Views (09/13/2024 3:21 AM CDT) Anatomical Region Laterality Modality Lower Extremities, Lower Leg Right Com puted Radiography 09/13/2024 4:16 AM CDT Impressions 09/13/2024 11:06 AM CDT Right femur: There is flattening and destruction of the right femoral head, likely representing sequela of avascular necrosis, better seen on dedicated pelvic radiograph. Postsurgical changes of 2 component right knee arthroplasty. No evidence of hardware loosening. Acute periprosthetic comminuted distal right femur fracture with mild posterior displacement of the distal fragments. There is no definite extension to the joint space. Right tibia/fibula: Acute right femoral periprosthetic fracture as described above. No acute fracture of the right tibia or fibula. Dictated by: Juan Renee MD The radiology attending physician has personally reviewed this study, and had reviewed and/or edited this written report and agrees with it. Electronically signed by: Kennedi Mg M.D. Narrative 09/13/2024 11:06 AM CDT EXAMINATION: XR TIBIA FIBULA RIGHT2 VIEWS, XR FEMUR RIGHT 2 OR MORE VIEWS HISTORY: Fall from wheelchair. Procedure Note Kennedi Mg MD - 09/13/2024 EXAMINATION: XR TIBIA FIBULA RIGHT2 VIEWS, XR FEMUR RIGHT 2 OR MORE VIEWS HISTORY: Fall from wheelchair. IMPRESSION: Right femur: There is flattening and destruction of the right femoral head, likely representing sequela of avascular necrosis, better seen on dedicated pelvic radiograph. Postsurgical changes of 2 component right knee arthroplasty. No evidence of hardware loosening. Acute periprosthetic comminuted distal right femur fracture with mild posterior displacement of the distal fragments. There is no definite extension to the joint space. Right tibia/fibula: Acute right femoral periprosthetic fracture as described above. No acute fracture of the right tibia or fibula. Dictated by: Juan Renee MD The radiology attending physician has personally reviewed this study, and had reviewed and/or edited this written report and agrees with it. Electronically signed by: Kennedi Mg M.D. us Durga Rogel MD IMG XR PROCEDURES Final Re sult * CT Recon Thoracic and Lumbar Spine W Contrast (C) (09/13/2024 3:13 AM CDT) Anatomical Region Laterality Modality Spine N/A Computed Tomogra phy 09/13/2024 4:24 AM CDT Impressions 09/13/2024 4:51 PM CDT 1. No acute intracranial process. 2. No evidence of acute fracture in the cervical, thoracic, or lumbar spine. 3. Question trace right medial pneumothorax. Dictated by: Drew Daley MD The radiology attending physician has personally reviewed this study, and had reviewed and/or edited this written report and agrees with it. Electronically signed by: Rajinder Barber M.D. Narrative 09/13/2024 4:51 PM CDT EXAMINATION: 1. CT head without contrast 2. CT of the cervical spine without contrast 3. CT of the thoracic spine with contrast 4. CT of the lumbar spine with contrast HISTORY: 74-year-old woman with fall. TECHNIQUE: CT of the head was performed with images acquired from skull base to vertex without intravenous contrast. CT of the cervical spine was performed according to the standard protocol without intravenous contrast. Dedicated reconstructions of the thoracic and lumbar spine were generated using data from a CT of the chest, abdomen, and pelvis acquired with intravenous contrast according to standard protocol. COMPARISON: None Available. FINDINGS: HEAD: There is cerebral volume loss and associated ex vacuo dilatation of the ventricles. There is significant periventricular and deep white matter hypoattenuation, likely on the basis of chronic microvascular ischemia. Intracranial atherosclerosis. There is no acute intracranial hemorrhage. No mass effect or midline shift is present. The schaefer-white matter differentiation is normal. The visualized portions of the orbits are normal. The visualized portions of the mastoids are normal. The visualized portions of the paranasal sinuses are normal. No fractures are identified. CERVICAL SPINE: Straightening of normal cervical lordosis There is no acute fracture. Osteopenia. Multilevel spondylosis. Degenerative change at the craniocervical junction. There are varying degrees of neuroforaminal stenosis due to uncovertebral and facet joint arthropathy. No soft tissue abnormality is identified. THORACIC SPINE: There are 12 rib-bearing thoracic vertebra. The alignment of the thoracic spine is normal. There is no acute fracture. Vertebral bodies are normal in height without compression fractures. Please refer to dedicated CT for thoracic visceral findings. There is a trace medial right pneumothorax. Multilevel spondylosis without high-grade spinal canal or neuroforaminal stenosis. LUMBAR SPINE: Mild grade 1 anterolisthesis of L4 on L5. Osteopenia. There is no acute fracture. The vertebral bodies are normal in height without compression fractures. Multilevel lower lumbar spondylosis, most pronounced at L4-L5 and L5-S1. No high-grade spinal canal or neuroforaminal stenosis. Please refer to dedicated CT for abdominal and pelvic visceral findings. There is severe degenerative change at the bilateral hip joints. Procedure Note Rajinder Barber MD - 09/13/2024 EXAMINATION: 1. CT head without contrast 2. CT of the cervical spine without contrast 3. CT of the thoracic spine with contrast 4. CT of the lumbar spine with contrast HISTORY: 74-year-old woman with fall. TECHNIQUE: CT of the head was performed with images acquired from skull base to vertex without intravenous contrast. CT of the cervical spine was performed according to the standard protocol without intravenous contrast. Dedicated reconstructions of the thoracic and lumbar spine were generated using data from a CT of the chest, abdomen, and pelvis acquired with intravenous contrast according to standard protocol. COMPARISON: None Available. FINDINGS: HEAD: There is cerebral volume loss and associated ex vacuo dilatation of the ventricles. There is significant periventricular and deep white matter hypoattenuation, likely on the basis of chronic microvascular ischemia. Intracranial atherosclerosis. There is no acute intracranial hemorrhage. No mass effect or midline shift is present. The schaefer-white matter differentiation is normal. The visualized portions of the orbits are normal. The visualized portions of the mastoids are normal. The visualized portions of the paranasal sinuses are normal. No fractures are identified. CERVICAL SPINE: Straightening of normal cervical lordosis There is no acute fracture. Osteopenia. Multilevel spondylosis. Degenerative change at the craniocervical junction. There are varying degrees of neuroforaminal stenosis due to uncovertebral and facet joint arthropathy. No soft tissue abnormality is identified. THORACIC SPINE: There are 12 rib-bearing thoracic vertebra. The alignment of the thoracic spine is normal. There is no acute fracture. Vertebral bodies are normal in height without compression fractures. Please refer to dedicated CT for thoracic visceral findings. There is a trace medial right pneumothorax. Multilevel spondylosis without high-grade spinal canal or neuroforaminal stenosis. LUMBAR SPINE: Mild grade 1 anterolisthesis of L4 on L5. Osteopenia. There is no acute fracture. The vertebral bodies are normal in height without compression fractures. Multilevel lower lumbar spondylosis, most pronounced at L4-L5 and L5-S1. No high-grade spinal canal or neuroforaminal stenosis. Please refer to dedicated CT for abdominal and pelvic visceral findings. There is severe degenerative change at the bilateral hip joints. IMPRESSION: 1. No acute intracranial process. 2. No evidence of acute fracture in the cervical, thoracic, or lumbar spine. 3. Question trace right medial pneumothorax. Dictated by: Drew Daley MD The radiology attending physician has personally reviewed this study, and had reviewed and/or edited this written report and agrees with it. Electronically signed by: Rajinder Barber M.D. us Durga Rogel MD IMG CT PROCEDURES Final Re sult * CT Head and Cervical Spine WO Contrast (09/13/2024 3:13 AM CDT) Anatomical Region Laterality Modality Head and Neck N/A Computed Tomogra phy 09/13/2024 4:24 AM CDT Impressions 09/13/2024 4:51 PM CDT 1. No acute intracranial process. 2. No evidence of acute fracture in the cervical, thoracic, or lumbar spine. 3. Question trace right medial pneumothorax. Dictated by: Drew Daley MD The radiology attending physician has personally reviewed this study, and had reviewed and/or edited this written report and agrees with it. Electronically signed by: Rajinder Barber M.D. Narrative 09/13/2024 4:51 PM CDT EXAMINATION: 1. CT head without contrast 2. CT of the cervical spine without contrast 3. CT of the thoracic spine with contrast 4. CT of the lumbar spine with contrast HISTORY: 74-year-old woman with fall. TECHNIQUE: CT of the head was performed with images acquired from skull base to vertex without intravenous contrast. CT of the cervical spine was performed according to the standard protocol without intravenous contrast. Dedicated reconstructions of the thoracic and lumbar spine were generated using data from a CT of the chest, abdomen, and pelvis acquired with intravenous contrast according to standard protocol. COMPARISON: None Available. FINDINGS: HEAD: There is cerebral volume loss and associated ex vacuo dilatation of the ventricles. There is significant periventricular and deep white matter hypoattenuation, likely on the basis of chronic microvascular ischemia. Intracranial atherosclerosis. There is no acute intracranial hemorrhage. No mass effect or midline shift is present. The schaefer-white matter differentiation is normal. The visualized portions of the orbits are normal. The visualized portions of the mastoids are normal. The visualized portions of the paranasal sinuses are normal. No fractures are identified. CERVICAL SPINE: Straightening of normal cervical lordosis There is no acute fracture. Osteopenia. Multilevel spondylosis. Degenerative change at the craniocervical junction. There are varying degrees of neuroforaminal stenosis due to uncovertebral and facet joint arthropathy. No soft tissue abnormality is identified. THORACIC SPINE: There are 12 rib-bearing thoracic vertebra. The alignment of the thoracic spine is normal. There is no acute fracture. Vertebral bodies are normal in height without compression fractures. Please refer to dedicated CT for thoracic visceral findings. There is a trace medial right pneumothorax. Multilevel spondylosis without high-grade spinal canal or neuroforaminal stenosis. LUMBAR SPINE: Mild grade 1 anterolisthesis of L4 on L5. Osteopenia. There is no acute fracture. The vertebral bodies are normal in height without compression fractures. Multilevel lower lumbar spondylosis, most pronounced at L4-L5 and L5-S1. No high-grade spinal canal or neuroforaminal stenosis. Please refer to dedicated CT for abdominal and pelvic visceral findings. There is severe degenerative change at the bilateral hip joints. Procedure Note Rajinder Barber MD - 09/13/2024 EXAMINATION: 1. CT head without contrast 2. CT of the cervical spine without contrast 3. CT of the thoracic spine with contrast 4. CT of the lumbar spine with contrast HISTORY: 74-year-old woman with fall. TECHNIQUE: CT of the head was performed with images acquired from skull base to vertex without intravenous contrast. CT of the cervical spine was performed according to the standard protocol without intravenous contrast. Dedicated reconstructions of the thoracic and lumbar spine were generated using data from a CT of the chest, abdomen, and pelvis acquired with intravenous contrast according to standard protocol. COMPARISON: None Available. FINDINGS: HEAD: There is cerebral volume loss and associated ex vacuo dilatation of the ventricles. There is significant periventricular and deep white matter hypoattenuation, likely on the basis of chronic microvascular ischemia. Intracranial atherosclerosis. There is no acute intracranial hemorrhage. No mass effect or midline shift is present. The schaefer-white matter differentiation is normal. The visualized portions of the orbits are normal. The visualized portions of the mastoids are normal. The visualized portions of the paranasal sinuses are normal. No fractures are identified. CERVICAL SPINE: Straightening of normal cervical lordosis There is no acute fracture. Osteopenia. Multilevel spondylosis. Degenerative change at the craniocervical junction. There are varying degrees of neuroforaminal stenosis due to uncovertebral and facet joint arthropathy. No soft tissue abnormality is identified. THORACIC SPINE: There are 12 rib-bearing thoracic vertebra. The alignment of the thoracic spine is normal. There is no acute fracture. Vertebral bodies are normal in height without compression fractures. Please refer to dedicated CT for thoracic visceral findings. There is a trace medial right pneumothorax. Multilevel spondylosis without high-grade spinal canal or neuroforaminal stenosis. LUMBAR SPINE: Mild grade 1 anterolisthesis of L4 on L5. Osteopenia. There is no acute fracture. The vertebral bodies are normal in height without compression fractures. Multilevel lower lumbar spondylosis, most pronounced at L4-L5 and L5-S1. No high-grade spinal canal or neuroforaminal stenosis. Please refer to dedicated CT for abdominal and pelvic visceral findings. There is severe degenerative change at the bilateral hip joints. IMPRESSION: 1. No acute intracranial process. 2. No evidence of acute fracture in the cervical, thoracic, or lumbar spine. 3. Question trace right medial pneumothorax. Dictated by: Drew Daley MD The radiology attending physician has personally reviewed this study, and had reviewed and/or edited this written report and agrees with it. Electronically signed by: Rajinder Barber M.D. Durga Rogel MD IMG CT PROCEDURES Final Re sult * CT Chest Abdomen Pelvis W Contrast (09/13/2024 3:13 AM CDT) Anatomical Region Laterality Modality Body N/A Computed Tomogra phy 09/13/2024 4:13 AM CDT Impressions 09/13/2024 11:06 AM CDT 1. Age indeterminant lateral right fifth and sixth rib fractures. No pleural effusion or hemothorax. 2. Mild anterior wedging at L2, age indeterminate. See dedicated thoracic and lumbar spinal reconstructions for evaluation of the spine. 3. Flattening of the bilateral femoral heads with subchondral cyst formation compatible with avascular necrosis and severe osteoarthritis. Dictated by: Juan Renee MD The radiology attending physician has personally reviewed this study, and had reviewed and/or edited this written report and agrees with it. Electronically signed by: Kennedi Mg M.D. Narrative 09/13/2024 11:06 AM CDT EXAMINATION: Computed tomography of the chest, abdomen and pelvis with intravenous contrast HISTORY: Fall from wheelchair. TECHNIQUE: Transaxial computed tomographic images of the chest, abdomen and pelvis were obtained with intravenous contrast according to the standard protocol after the uneventful administration of 94 mL Opti-Ray 350 intravenous contrast. COMPARISON: Same day chest radiograph. FINDINGS: Chest: No thoracic lymphadenopathy. Normal heart size. Coronary artery vascular calcifications. Normal caliber thoracic aorta with two-vessel take off. Atherosclerosis of the aortic arch. Normal caliber main pulmonary artery. Normal thyroid. Right greater than left basilar atelectasis. No pulmonary consolidation. No pleural effusion. No pneumothorax. Central airways are normal in caliber without evidence of obstruction. No suspicious pulmonary nodule. Abdomen/Pelvis: No focal hepatic lesion. Gallbladder is not definitively visualized and may be decompressed or absent. Mild prominence of the extrahepatic biliary ductal system may be due to the reservoir effect. Normal spleen. Mildly atrophic pancreas. Normal adrenal glands. Kidneys enhance symmetrically without hydronephrosis. Urinary bladder is mildly distended. Uterus is present. No suspicious adnexal lesion. Tiny hiatal hernia. Otherwise normal stomach. Normal proximal duodenum. Normal appendix. Small and large bowel are normal in caliber without evidence of obstruction. No free fluid. No intraperitoneal free air. Normal caliber abdominal aorta with moderate atherosclerotic disease. No abdominal or pelvic lymphadenopathy. Mild diffuse muscle atrophy. Diffuse osteopenia. Chronic appearing anterior right third rib fracture.. Age indeterminant right lateral fifth and sixth rib fractures. Flattening of the bilateral femoral heads with subchondral cyst formation. Grade 1 anterolisthesis of L4 on L5. Mild anterior wedging at L2. Multiple anterior disc osteophyte complexes compatible with diffuse idiopathic skeletal hyperostosis. Please see dedicated spinal reconstructions for evaluation of the spine. No suspicious osseous lesion. Procedure Note Kennedi Mg MD - 09/13/2024 EXAMINATION: Computed tomography of the chest, abdomen and pelvis with intravenous contrast HISTORY: Fall from wheelchair. TECHNIQUE: Transaxial computed tomographic images of the chest, abdomen and pelvis were obtained with intravenous contrast according to the standard protocol after the uneventful administration of 94 mL Opti-Ray 350 intravenous contrast. COMPARISON: Same day chest radiograph. FINDINGS: Chest: No thoracic lymphadenopathy. Normal heart size. Coronary artery vascular calcifications. Normal caliber thoracic aorta with two-vessel take off. Atherosclerosis of the aortic arch. Normal caliber main pulmonary artery. Normal thyroid. Right greater than left basilar atelectasis. No pulmonary consolidation. No pleural effusion. No pneumothorax. Central airways are normal in caliber without evidence of obstruction. No suspicious pulmonary nodule. Abdomen/Pelvis: No focal hepatic lesion. Gallbladder is not definitively visualized and may be decompressed or absent. Mild prominence of the extrahepatic biliary ductal system may be due to the reservoir effect. Normal spleen. Mildly atrophic pancreas. Normal adrenal glands. Kidneys enhance symmetrically without hydronephrosis. Urinary bladder is mildly distended. Uterus is present. No suspicious adnexal lesion. Tiny hiatal hernia. Otherwise normal stomach. Normal proximal duodenum. Normal appendix. Small and large bowel are normal in caliber without evidence of obstruction. No free fluid. No intraperitoneal free air. Normal caliber abdominal aorta with moderate atherosclerotic disease. No abdominal or pelvic lymphadenopathy. Mild diffuse muscle atrophy. Diffuse osteopenia. Chronic appearing anterior right third rib fracture.. Age indeterminant right lateral fifth and sixth rib fractures. Flattening of the bilateral femoral heads with subchondral cyst formation. Grade 1 anterolisthesis of L4 on L5. Mild anterior wedging at L2. Multiple anterior disc osteophyte complexes compatible with diffuse idiopathic skeletal hyperostosis. Please see dedicated spinal reconstructions for evaluation of the spine. No suspicious osseous lesion. IMPRESSION: 1. Age indeterminant lateral right fifth and sixth rib fractures. No pleural effusion or hemothorax. 2. Mild anterior wedging at L2, age indeterminate. See dedicated thoracic and lumbar spinal reconstructions for evaluation of the spine. 3. Flattening of the bilateral femoral heads with subchondral cyst formation compatible with avascular necrosis and severe osteoarthritis. Dictated by: Juan Renee MD The radiology attending physician has personally reviewed this study, and had reviewed and/or edited this written report and agrees with it. Electronically signed by: Kennedi Mg M.D. Durga Rogel MD IMG CT PROCEDURES Final Re sult * CT Knee Right WO Contrast (09/13/2024 3:13 AM CDT) Anatomical Region Laterality Modality Lower Extremities Right Computed Tomog maryann 09/13/2024 4:51 AM CDT Impressions 09/13/2024 9:18 AM CDT 1. Right total knee arthroplasty with comminuted, displaced and angulated periprosthetic distal femur fracture. Dictated by: Jaun Renee MD The radiology attending physician has personally reviewed this study, and had reviewed and/or edited this written report and agrees with it. Electronically signed by: Cosmo [place] M.D. Narrative 09/13/2024 9:18 AM CDT EXAMINATION: CT KNEE RIGHT WO CONTRAST HISTORY: Fall from wheelchair with distal right femur fracture. TECHNIQUE: Transaxial computed tomographic images of the right knee were obtained without the use of intravenous contrast. Coronal and sagittal reformations were performed and also reviewed. COMPARISON: Right knee radiographs 09/13/2024. FINDINGS: There is a right total knee arthroplasty with a periprosthetic acute comminuted distal right femoral fracture demonstrated apex angulation and mild posterior lateral translation of the distal components. Tiny ossific density along the medial aspect of the patella (series 7, image 10) could represent a fracture fragment from the distal femoral fracture or separate avulsion injury. Osteopenia throughout the knee. Loose bodies about the proximal right fibula. Partially imaged component left knee arthroplasty. There is mild soft tissue edema lateral to the left knee. Atherosclerotic vascular calcifications present. Procedure Note Cosmo Lake MD - 09/13/2024 EXAMINATION: CT KNEE RIGHT WO CONTRAST HISTORY: Fall from wheelchair with distal right femur fracture. TECHNIQUE: Transaxial computed tomographic images of the right knee were obtained without the use of intravenous contrast. Coronal and sagittal reformations were performed and also reviewed. COMPARISON: Right knee radiographs 09/13/2024. FINDINGS: There is a right total knee arthroplasty with a periprosthetic acute comminuted distal right femoral fracture demonstrated apex angulation and mild posterior lateral translation of the distal components. Tiny ossific density along the medial aspect of the patella (series 7, image 10) could represent a fracture fragment from the distal femoral fracture or separate avulsion injury. Osteopenia throughout the knee. Loose bodies about the proximal right fibula. Partially imaged component left knee arthroplasty. There is mild soft tissue edema lateral to the left knee. Atherosclerotic vascular calcifications present. IMPRESSION: 1. Right total knee arthroplasty with comminuted, displaced and angulated periprosthetic distal femur fracture. Dictated by: Juan Renee MD The radiology attending physician has personally reviewed this study, and had reviewed and/or edited this written report and agrees with it. Electronically signed by: [place]mo [place] M.D. Durga Rogel MD IMG CT PROCEDURES Final Re sult * XR Outside Reference (09/13/2024 2:57 AM CDT) Impressions [facility] - 09/13/2024 2:57 AM CDT These images are for Reference purposes only and have not been reviewed by [facility]. There will be no report generated by a [facility] Radiologist. Narrative RAD_PACS[facility] - 09/13/2024 2:57 AM CDT EXAMINATION: Images For Reference Purposes Only Durga Rogel MD IMG XR PROCEDURES Final Re sult Performing Organization Address [facility] de Phone Number [email or web address] * XR Outside Reference (09/13/2024 2:33 AM CDT) Impressions [facility] - 09/13/2024 2:33 AM CDT These images are for Reference purposes only and have not been reviewed by [facility]. There will be no report generated by a [facility] Radiologist. Narrative [facility]_P[facility] - 09/13/2024 2:33 AM CDT EXAMINATION: Images For Reference Purposes Only Durga Rogel MD IMG XR PROCEDURES Final Re sult Performing Organization Address [facility] Co de Phone Number [email or web address] * POCT creatinine (09/13/2024 2:24 AM CDT) Creatinine POC 0.7 0.6 - 1.1 mg/dL Blood 09/13/2024 2:24 AM CDT 09/13/2024 2:24 AM CDT Elias Dunham Jr., MD LAB POCT ORDERABLES - DEVICE Final Result Performing Organization Address [facility] Co de Phone Number [facility] Department [place] [address] * eGFR (09/13/2024 2:00 AM CDT) Pathologist [facility] eGFR 67 >=60 mL/min/1. 73 m2 Comment: Interpretive Data Reference Interval Normal >/= 90 mL/min/1.73m2 Mildly decreased* 60 - 89 mL/min/1.73m2 Mildly to moderately decreased 45 - 59 mL/min/1.73m2 Moderately to severely decreased 30 - 44 mL/min/1.73m2 Severely decreased 15 - 29 mL/min/1.73m2 Kidney Failure < 15 mL/min/1.73m2 *Relative to young adult level Estimated glomerular filtration rate is determined by the 2020 CKD-EPI equation recommended by the National [employer] (A Unifying Approach to GFR Estimation: Recommendations of the NKF-ASK Task Force on Reassessing the Inclusion of Race in Diagnosing Kidney Disease, JASN 2020). The CKD-EPI equation should not be used for patients with unstable renal function and has not been validated in children and those over 70. Current interpretive data was last reviewed 2021. Blood 09/13/2024 2:00 AM CDT 09/13/2024 2:12 AM CDT Durga Rogel MD LAB BLOOD ORDERABLES Final Result [facility] Department [place] [address] * (ABNORMAL) Differential, auto (09/13/2024 2:00 AM CDT) Pathologist [facility] Neutrophil abs 9.23(H) 1.50 - 6.50 K/cumm Imm gran abs 0.05 0.00 - 0.10 K/cumm [facility] Lymphocyte abs 1.32 0.80 - 3.30 K/cumm [facility] Monocyte abs 1.17(H) 0.20 - 0.80 K/cumm [facility] Eosinophil abs 0.03 0.00 - 0.50 K/cumm [facility] Basophil abs 0.05 0.00 - 0.10 K/cumm [facility] Neutrophil pct 77.9 % [facility] Comment: Interpretive Data Percent cell count reference ranges are not reported, since discordance with absolute values may lead to misinterpretation of CBC data. Current Interpretive Data was last revised on 2017. Imm gran pct 0.4 % [facility] Comment: Interpretive Data Percent cell count reference ranges are not reported, since discordance with absolute values may lead to misinterpretation of CBC data. Current Interpretive Data was last revised on 2017. Lymphocyte pct 11.1 % [facility] Comment: Interpretive Data Percent cell count reference ranges are not reported, since discordance with absolute values may lead to misinterpretation of CBC data. Current Interpretive Data was last revised on 2017. Monocyte pct 9.9 % [facility] Comment: Interpretive Data Percent cell count reference ranges are not reported, since discordance with absolute values may lead to misinterpretation of CBC data. Current Interpretive Data was last revised on 2017. Eosinophil pct 0.3 % [facility] Comment: Interpretive Data Percent cell count reference ranges are not reported, since discordance with absolute values may lead to misinterpretation of CBC data. Current Interpretive Data was last revised on 2017. Basophil pct 0.4 % [facility] Comment: Interpretive Data Percent cell count reference ranges are not reported, since discordance with absolute values may lead to misinterpretation of CBC data. Current Interpretive Data was last revised on 2017. Blood 09/13/2024 2:00 AM CDT 09/13/2024 2:12 AM CDT us Durga Rogel MD LAB BLOOD ORDERABLES Final Result [facility] [place] [address] * (ABNORMAL) CBC with auto differential (09/13/2024 2:00 AM CDT) WBC 11.85(H) 3.80 - 9.90 K/cumm Hgb 11.8(L) 11.9 - 15.5 g/dL [facility] Hct 36.9 35.6 - 45.5 % [facility] Plt 188 150 - 400 K/cumm [facility] MPV 9.9 9.1 - 12.3 fL [facility] RBC 4.05 3.90 - 5.20 M/cumm [facility] MCV 91.1 81.3 - 96.4 fL [facility] MCH 29.1 27.1 - 33.3 pg [facility] MCHC 32.0(L) 32.3 - 35.7 g/dL [facility] RDW CV 14.9 11.1 - 14.9 % [facility] RDW SD 50.1(H) 35.7 - 48.1 fL [facility] NRBC abs 0.00 0.00 - 0.01 K/cumm [facility] Blood 09/13/2024 2:00 AM CDT 09/13/2024 2:12 AM CDT us Durga Rogel MD LAB BLOOD ORDERABLES Final Result [facility] [place] [address] * XR Chest 1 Vw Portable (09/13/2024 2:00 AM CDT) Anatomical Region Laterality Modality Body, Chest N/A Computed Radiogr aphy 09/13/2024 2:52 AM CDT Impressions 09/13/2024 11:06 AM CDT No available comparison. Patient is slightly rotated to the right. Small right lung volume with mild bibasilar atelectasis. No confluent pulmonary consolidation. No definite pleural effusion. No pneumothorax. Heart size is likely normal given patient rotation. Recommend correlation with prior cross-sectional imaging for evaluation of reported rib fractures. Dictated by: Juan Renee MD The radiology attending physician has personally reviewed this study, and had reviewed and/or edited this written report and agrees with it. Electronically signed by: Kennedi Mg M.D. Narrative 09/13/2024 11:06 AM CDT EXAMINATION: 1 view chest radiograph Procedure Note Kennedi Mg MD - 09/13/2024 EXAMINATION: 1 view chest radiograph IMPRESSION: No available comparison. Patient is slightly rotated to the right. Small right lung volume with mild bibasilar atelectasis. No confluent pulmonary consolidation. No definite pleural effusion. No pneumothorax. Heart size is likely normal given patient rotation. Recommend correlation with prior cross-sectional imaging for evaluation of reported rib fractures. Dictated by: Juan Renee MD The radiology attending physician has personally reviewed this study, and had reviewed and/or edited this written report and agrees with it. Electronically signed by: Kennedi Mg M.D. us Elias Dunham Jr., MD IMG XR PROCEDURES Lydia l Result * (ABNORMAL) aPTT (09/13/2024 2:00 AM CDT) aPTT 20(L) 28 - 38 sec Comment: Interpretive Data Heparin therapeutic range: 66.0 - 100.0 seconds. Range based on correlation with therapeutic heparin activity range of 0.3 - 0.7 Units/mL. Current interpretive data was last revised on 2023. Blood 09/13/2024 2:00 AM CDT 09/13/2024 2:36 AM CDT us Durga Rogel MD LAB BLOOD ORDERABLES Final Result [facility] [place] [address] * Protime-INR (09/13/2024 2:00 AM CDT) PT 12.1 9.7 - 13.0 sec INR 1.12 0.90 - 1.20 [facility] Comment: Interpretive data Oral anticoagulant therapeutic ranges: Venous thromboembolism prophylaxis or treatment: 2.0-3.0 CARDIOLOGY Standard range: 2.0-3.0 High-intensity range: 2.5-3.5 Refer to indication-specific guidelines for appropriate target ranges for prosthetic heart valve replacement. Current interpretive data was last revised on 2019. Blood 09/13/2024 2:00 AM CDT 09/13/2024 2:36 AM CDT Durga Rogel MD LAB BLOOD ORDERABLES Final Result Performing Organization Address [facility] [place] [address] * Type and screen (09/13/2024 2:00 AM CDT) Pathologist [facility] Eleonora, indirect Negative ABO Rh O Positive [facility] Blood 09/13/2024 2:00 AM CDT 09/13/2024 2:11 AM CDT Narrative [facility] - 09/13/2024 2:59 AM CDT Has the patient had Daratumumab or Isatuximab in the past 6 months?->Unknown Durga Rogel MD LAB BLOOD BANK TEST ORDERA BLES Final Result Performing Organization Address [facility] [place] [address] * Basic metabolic panel (09/13/2024 2:00 AM CDT) Pathologist [facility] Sodium 143 135 - 145 mmol/L Potassium, pl 3.7 3.3 - 4.9 mmol/L [facility] Chloride 110 97 - 110 mmol/L [facility] CO2 23 22 - 32 mmol/L [facility] Anion gap 10 2 - 15 mmol/L [facility] BUN 21 6 - 25 mg/dL [facility] Creatinine 0.89 0.60 - 1.10 mg/dL [facility] Glucose 117 70 - 199 mg/dL [facility] Comment: Interpretive Data Fasting glucose >/= 126 mg/dl is diagnostic for diabetes. Fasting is defined as no caloric intake for at least 8 hours. Fasting glucose between 100 mg/dl to 125 mg/dl is diagnostic of prediabetes. In a patient with classic symptoms of hyperglycemia or hyperglycemic crisis, a random glucose >/= 200 mg/dl is diagnostic for diabetes. In the absence of unequivocal hyperglycemia, results should be confirmed by repeat testing. The classification and Diagnosis of Diabetes Diabetes Care 202; 46: S19-S40. Current interpretive data was last revised 2022. Calcium 8.7 8.5 - 10.3 mg/dL [facility] Blood 09/13/2024 2:00 AM CDT 09/13/2024 2:12 AM CDT Durga Rogel MD LAB BLOOD ORDERABLES Final Result [facility] [place] [address] from Last 3 Months Insurance MEDICARE ADVANT[facility]IC[facility] Address[id number] [place] [address] [address] [facility] MEDICARE Address: [facility] [address] [place] [address] Advance Directives For more information, please contact: [phone] * LIMITED - No CPR (Latest Code Status on File) Date Activated Date Inactivated Comments 09/14/2024 10:25 AM 09/17/2024 8:11 PM Question Answer Comments Provide aggressive medical m anagement before a full cardiopulmonary arrest occurs. 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
--- OUTSIDE RECORDS SUMMARY | 2024-11-06 15:57 | XMS_ITS | Referral Summary ---
Author Organization [facility] Address [address] [place] [address] Care Team Providers Care Metal Sprayer Name Role Phone Felicity Drake MD Primary Care Provider Encounters Date Type Department Care Team Description 10/31/2024 12:23 PM CDT - 10/31/2024 11:59 PM CDT Hospital Encounter [facility] [address] [place] [address] Other fracture of right femur, initial encounter for closed fracture (HCC) Discharge Disposition: Discharge to home or self care 10/31/2024 12:00 PM CDT Office Visit [facility] Orthopa[facility] Surgery [address] [place] [address] Advanced Medicine 6th [place] [address] [place] [address] Cindy Juarez MD Other fracture of right femur, initial encounter for closed fracture (HCC) (Primary Dx) 10/24/2024 Telephone [facility] Orthopaedic Surgery [address] [place] [address] Advanced Medicine 6th [place] [address] [place] [address] Chrissy Bernal, 10/24/2024 Telephone [facility] Surgery [address] [place] [address] Advanced Medicine 6th [place] [address] [place] [address] Chrissy Bernal, MS 09/17/2024 Documentation [facility] Surgery [address] [place] [address] Advanced Medicine 6th [place] [address] [place] [address] Shannan Mcintosh RN 09/13/2024 1:47 AM CDT - 09/17/2024 4:10 PM CDT Hospital Encounter [facility] [address] [place] [address] Elias Dunham Jr., MD Ngo, MD Kolby Echevarria Opeolu Makanju, MD Berkes, Marschall Brantling, MD Other fracture of right femur, initial encounter for closed fracture (HCC) (Primary Dx); Periprosthetic supracondylar fracture of femur, initial encounter; Fall, initial encounter Discharge Disposition: Discharge to [facility] 09/13/2024 Orders Only [facility] Orthopaedic Surgery [address] [facility] 6th [place] [address] [place] [address] iCndy Juarez MD Other fracture of right femur, initial encounter for closed fracture (HCC) (Primary Dx) 09/13/2024 10:08 AM CDT Anesthesia Event [facility] Operating Room [address] [place] [address] Jae Wagner MD Saltz, Dolores, PRODUCT DEVELOPMENT COORDINATOR 09/13/2024 10:40 AM CDT - 09/13/2024 2:20 PM CDT Surgery [facility] Operating Room [address] [place] [address] Cindy Juarez MD INTRAMEDULLARY NAILING FEMUR - RETROGRADE from Last 3 Months Allergies Active Allergy Reactions Criticality Noted Date Comments Dye Unknown Low 08/27/2015 Metformin Unknown Low 03/15/2016 Medications levothyroxine (SYNTHROID) 75 mcg tablet Take 1 tablet (75 mcg total) by mouth corrugator before breakfast 5 Active losartan (COZAAR) 100 [...] total) by mouth every 6 (six) hours Active cholecalciferol (VITAMIN D-3) 1,000 unit capsule Take 1 capsule (1,000 Units total) by mouth daily 5 09/19/19 26 Active gabapentin (NEURONTIN) 300 mg capsule Take 1 capsule (300 mg total) by mouth 2 (two) times a day 5 09/18/19 26 Active methocarbamoL (ROBAXIN) 500 mg tablet Take 1 tablet (500 mg total) by mouth every 8 (eight) hours Active senna-docusate (PERICOLACE) 8.6-50 mg Take 2 tablets by mouth 2 (two) times a day Active aspirin 81 mg chewable tablet Take [...] & Plan (09/17/2024 8:16 AM CDT): Completed [id number] - [place], [place] - [address] [facility] [address] [facility] [id number] [x]Treatment note completed Abnormal finding on CT scan 09/14/2024 Assessment & Plan (09/17/2024 9:48 AM CDT): SEE Right lung nodule 09/17 Review of chart, imaging no report of lung nodule in this admission work up and management. Periprosthetic fracture of proximal end of femur 09/13/2024 Assessment & Plan (09/16/2024 9:03 AM CDT): - Ortho c/s 09/13 OR (Ortho- Ann) R femur IMN WBAT RLE Sutures remove [...] Assessment & Plan (09/17/2024 8:16 AM CDT): 09/13 OR with Ortho 09/14 PT/OT 09/15 Patient is medically stable for [...] breath 02/26/2015 Chronic diastolic (congestive) heart failure Social History Tobacco Use Types Packs/Day Years Used Date Smoking Tobacco: Never Tobacco Cessation:Counseling Given: Not Answered [facility] Utilities Answer Date Recorded In the past 12 months has e [employer], gas, oil, or water company threatened to [...] often do you attend chur ch or restorationism services? Never 09/13/2024 Do you belong to any clubs o r organizations such as holiness groups, unions, fraternal or athletic groups, or [...] care, and heating? Not very hard 09/13/2024 [facility] [place] of Occupat ional Health - Occupational Stress [...] any time in the past 12 m [facility], were you homeless or living in a long-term (including now)? No 09/13/2024 Personal Safety Answer Date Recorded Have you ever been in or are you currently in a harmful physical or emotional relationship or is someone making you feel afraid or unsafe? 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 Nail Right: Femur [employer] 01/09/2034 [id number] S / / [id number] [employer] Screw Bone 5mm 80mm Lock Strl [id number] - [id number] Implanted:Qty: 1 on 09/13/2024 by Cindy Juarez MD at [facility] Screw Right: Femur [employer] [id number] 05/11/2034 0868-8137 S / / [id number] [employer] Screw Bone 5mm 75mm Lock Strl [id number] - [id number] Implanted:Qty: 1 on 09/13/2024 by Cindy Juarez MD at [facility] Screw Right: Femur [employer] [id number] 06/11/2034 0550-5066 S / / [id number] [employer] Screw Bone 5mm 60mm Lock Strl 2361-3790s - [id number] Implanted:Qty: 1 on 09/13/2024 by Cindy Juarez MD at [facility] Screw Right: Femur [employer] [id number] 05/11/2034 8156-5381 S / / [id number] [employer] Screw Bone 5mm 80mm Lock Strl 2361-5080s - [id number] Implanted:Qty: 1 on 09/13/2024 by Cindy Juarez MD at [facility] Screw Right: Femur [employer] [id number] 01/09/2034 8239-6975 S / / [id number] [employer] Screw Bone 5mm 40mm T2 Alpha Lock Strl 2360-5040s - [id number] Implanted:Qty: 1 on 09/13/2024 by Cindy Juarez MD at [facility] Screw Right: Femur [employer] [id number] 05/11/2034 9614-9863 S / / [id number] [employer] Screw Bone 5mm 40mm T2 Alpha Lock Strl 2360-5040s - [id number] Implanted:Qty: 1 on 09/13/2024 by Cindy Juarez MD at [facility] Screw Right: Femur [employer] [id number] 04/11/2034 2432-7232 S / / [id number] [employer] Screw Bone 5mm 45mm T2 Alpha Lock Strl 2360-5045s - [id number] Implanted:Qty: 1 on 09/13/2024 by Cindy Juarez MD at [facility] Screw Right: Femur [employer] [id number] 04/11/2034 0541-1219 S / / [id number] Procedures Procedure Name Priority Date/Time Associated Diagnosis [...] DEVICE Routine 09/13/2024 2 :19 PM CDT VT AN PROCEDURE PLACEHOLDER Routine 09/13/2024 1:52 PM CDT XR FEMUR RIGHT 2 OR MORE VIEWS IP Routine 09/13/2024 12:17 PM CDT FL FLUOROSCOPY < 1 HOUR IP Routine 09/13/2024 11:49 AM CDT VT AN PROCEDURE PLACEHOLDER Routine 09/13/2024 11:12 AM CDT VT AN ELECTIVE ENDOTRACHEAL AIRWAY Routine 09/13/2024 11:12 AM CDT INTRAMEDULLARY NAILING FEMUR - RETROGRADE 09/13/2024 10:10 AM CDT Other fracture of right femur, initial encounter for closed fracture (HCC) VT CRITICAL CARE ILL/INJURED PATIENT INIT 30-74 MIN [...] distal femoral periprosthetic fracture. Electronically signed by: Svitlana Rinaldi 10/31/2024 1:02 PM CDT EXAMINATION: XR FEMUR [...] right sacroiliac joint osteoarthritis. Procedure Note Carlos Solomon, - 10/31/2024 EXAMINATION: XR FEMUR RIGHT 2 [...] Result * TSH (09/16/2024 8:30 PM CDT) Thyroid Stimulating Hormone 4.11 0.30 - 4.20 mcIUnit/mL Blood 09/16/2024 8:30 PM CDT 09/16/2024 9:32 PM CDT Clover Schmid [address] MAINTENANCE CREW WORKER LAB BLOOD ORDERABLES Final Result [facility] [place] [address] * T4, free (09/16/2024 8:30 PM CDT) Free T4 0.91 0.90 - 1.70 ng/dL Blood 09/16/2024 8:30 PM CDT 09/16/2024 9:32 PM CDT us Clover Schmid NP LAB BLOOD ORDERABLES Final Result [facility] [place] [address] * POCT glucose (09/16/2024 8:28 AM CDT) Glucose, POC 86 70 - 199 mg/dL Blood 09/16/2024 8:28 AM CDT 09/16/2024 8:28 AM CDT Josie Youngblood MD LAB POCT ORDERABLES - DEVICE Fi nal Result Performing Organization Address City/[facility] Co de Phone Number [facility] [place] [address] * eGFR (09/16/2024 12:19 AM CDT) eGFR 68 >=60 mL/min/1. 73 m2 Comment: [...] ORDERABLES Final Resu lt Performing Organization Address [facility] Co de Phone Number [facility] [place] [address] * (ABNORMAL) CBC without differential (09/16/2024 12:19 AM CDT) WBC 7.54 3.80 - 9.90 K/cumm Hgb 8.8(L) 11.9 - 15.5 g/dL [facility] Hct 28.2(L) 35.6 - 45.5 % [facility] Plt 163 150 - 400 K/cumm [facility] MPV 9.8 9.1 - 12.3 fL [facility] RBC 3.01(L) 3.90 - 5.20 M/cumm [facility] MCV 93.7 81.3 - 96.4 fL [facility] MCH 29.2 27.1 - 33.3 pg [facility] MCHC 31.2(L) 32.3 - 35.7 g/dL [facility] RDW CV 15.0(H) 11.1 - 14.9 % [facility] RDW SD 51.8(H) 35.7 - 48.1 fL [facility] NRBC abs 0.00 0.00 - 0.01 K/cumm [facility] Blood 09/16/2024 12:1 9 AM CDT 09/16/2024 12:32 AM CDT Josie Youngblood MD LAB BLOOD ORDERABLES Final Resu lt [facility] [place] [address] * Phosphorus (09/16/2024 12:19 AM CDT) Phosphorus, pl 2.6 2.3 - 4.5 mg/dL Blood 09/16/2024 12:1 9 AM CDT 09/16/2024 12:32 AM CDT Josie Youngblood MD LAB BLOOD ORDERABLES Final Resu lt Performing Organization Address City/[facility] Co de Phone Number [facility] [place] [address] * Magnesium (09/16/2024 12:19 AM CDT) Pathologist [facility] Magnesium 1.7 1.4 - 2.5 mg/dL Blood 09/16/2024 12:1 9 AM CDT 09/16/2024 12:32 AM CDT Josie Youngblood MD LAB BLOOD ORDERABLES Final Resu lt Performing Organization Address [facility] de Phone Number [facility] [place] [address] * Basic metabolic panel (09/16/2024 12:19 AM CDT) Sodium 140 135 - 145 mmol/L Potassium, pl 3.8 3.3 - 4.9 mmol/L [facility] Chloride 107 97 - 110 mmol/L [facility] CO2 27 22 - 32 mmol/L [facility] Anion gap 6 2 - 15 mmol/L [facility] BUN 17 6 - 25 mg/dL [facility] Creatinine 0.88 0.60 - 1.10 mg/dL [facility] Glucose 106 70 - 199 mg/dL [facility] Comment: Interpretive Data Fasting glucose >/= [...] 2022. Calcium 8.6 8.5 - 10.3 mg/dL [facility] Blood 09/16/2024 12:1 9 AM CDT 09/16/2024 12:32 AM CDT Josie Youngblood MD LAB BLOOD ORDERABLES Final Resu lt Performing Organization Address City/[facility]/ZIP Co de Phone Number [facility] [place] [address] * (ABNORMAL) eGFR (09/15/2024 4:02 AM CDT) eGFR 59(L) >=60 mL/min/1. 73 m2 Comment: [...] of Race in Diagnosing Kidney Disease, JASN 202). The CKD-EPI equation should not be used for patients with unstable renal function and has not been validated in children and those over 70. Current interpretive data was last reviewed 2021. Blood 09/15/2024 4:02 AM CDT 09/15/2024 4:24 AM CDT Josie Youngblood MD LAB BLOOD ORDERABLES Final Resu lt Performing Organization Address [facility]/ZIP Co de Phone Number [facility] [place] [address] * (ABNORMAL) CBC without differential (09/15/2024 4:02 AM CDT) Pathologist [facility] WBC 8.54 3.80 - 9.90 K/cumm Hgb 8.2(L) 11.9 - 15.5 g/dL [facility] Hct 26.2(L) 35.6 - 45.5 % [facility] Plt 162 150 - 400 K/cumm [facility] MPV 10.1 9.1 - 12.3 fL [facility] RBC 2.87(L) 3.90 - 5.20 M/cumm [facility] MCV 91.3 81.3 - 96.4 fL [facility] MCH 28.6 27.1 - 33.3 pg [facility] MCHC 31.3(L) 32.3 - 35.7 g/dL [facility] RDW CV 14.8 11.1 - 14.9 % [facility] RDW SD 49.7(H) 35.7 - 48.1 fL [facility] NRBC abs 0.00 0.00 - 0.01 K/cumm [facility] Blood 09/15/2024 4:02 AM CDT 09/15/2024 4:24 AM CDT Josie Youngblood MD LAB BLOOD ORDERABLES Final Resu lt Performing Organization Address City/[facility] Co de Phone Number [facility] [place] [address] * Phosphorus (09/15/2024 4:02 AM CDT) Pathologist [facility] Phosphorus, pl 2.6 2.3 - 4.5 mg/dL Blood 09/15/2024 4:02 AM CDT 09/15/2024 4:24 AM CDT Josie Youngblood MD LAB BLOOD ORDERABLES Final Resu lt Performing Organization Address City/[facility]/ZIP Co de Phone Number [facility] [place] [address] * Magnesium (09/15/2024 4:02 AM CDT) Pathologist [facility] Magnesium 2.0 1.4 - 2.5 mg/dL Blood 09/15/2024 4:02 AM CDT 09/15/2024 4:24 AM CDT Josie Youngblood MD LAB BLOOD ORDERABLES Final Resu lt Performing Organization Address City/State/[facility] Co de Phone Number [facility] [place] [address] * (ABNORMAL) Basic metabolic panel (09/15/2024 4:02 AM CDT) [facility] Sodium 140 135 - 145 mmol/L Potassium, pl 3.9 3.3 - 4.9 mmol/L [facility] Chloride 109 97 - 110 mmol/L [facility] CO2 26 22 - 32 mmol/L [facility] Anion gap 5 2 - 15 mmol/L [facility] BUN 18 6 - 25 mg/dL [facility] Creatinine 0.99 0.60 - 1.10 mg/dL [facility] Glucose 100 70 - 199 mg/dL [facility] Comment: Interpretive Data Fasting glucose >/= [...] 2022. Calcium 8.3(L) 8.5 - 10.3 mg/dL [facility] Blood 09/15/2024 4:02 AM CDT 09/15/2024 4:24 AM CDT Josie Youngblood MD LAB BLOOD ORDERABLES Final Resu lt Performing Organization Address City/[facility] Co de Phone Number [facility] Department [place] [address] * eGFR (09/13/2024 8:40 PM CDT) eGFR [...] ORDERABLES Final Resu lt Performing Organization Address City/[facility] Co de Phone Number [facility] Department [place] [address] * (ABNORMAL) CBC without differential (09/13/2024 8:40 PM CDT) WBC 11.04(H) 3.80 - 9.90 K/cumm Hgb 9.7(L) 11.9 - 15.5 g/dL [facility] Hct 30.4(L) 35.6 - 45.5 % [facility] Plt 167 150 - 400 K/cumm [facility] MPV 10.7 9.1 - 12.3 fL [facility] RBC 3.29(L) 3.90 - 5.20 M/cumm [facility] MCV 92.4 81.3 - 96.4 fL [facility] MCH 29.5 27.1 - 33.3 pg [facility] MCHC 31.9(L) 32.3 - 35.7 g/dL [facility] RDW CV 15.0(H) 11.1 - 14.9 % [facility] RDW SD 50.4(H) 35.7 - 48.1 fL [facility] NRBC abs 0.00 0.00 - 0.01 K/cumm [facility] Blood 09/13/2024 8:40 PM CDT 09/13/2024 9:35 PM CDT Josie Youngblood MD LAB BLOOD ORDERABLES Final Resu lt Performing Organization Address City/[facility]/ZIP Co de Phone Number [facility] [place] [address] * Phosphorus (09/13/2024 8:40 PM CDT) Phosphorus, pl 3.1 2.3 - 4.5 mg/dL Blood 09/13/2024 8:40 PM CDT 09/13/2024 9:34 PM CDT Josie Youngblood MD LAB BLOOD ORDERABLES Final Resu lt [facility] [place] [address] * Magnesium (09/13/2024 8:40 PM CDT) Magnesium 1.4 1.4 - 2.5 mg/dL Blood 09/13/2024 8:40 PM CDT 09/13/2024 9:34 PM CDT Josie Youngblood MD LAB BLOOD ORDERABLES Final Resu lt Performing Organization Address [facility] Co de Phone Number [facility] [place] [address] * Hemoglobin A1c (09/13/2024 8:40 PM CDT) [facility] Hgb A1C 5.5 4.0 - 5.6 % Estimated Average Glucose 111 mg/dL [facility] Comment: The ADA recommends reporting an [...] ORDERABLES Final Resu lt Performing Organization Address [facility] Co de Phone Number [facility] [place] [address] * (ABNORMAL) Albumin (09/13/2024 8:40 PM CDT) [facility] Albumin 2.9(L) 3.5 - 5.0 g/dL Blood 09/13/2024 8:40 PM CDT 09/13/2024 9:34 PM CDT Josie Youngblood MD LAB BLOOD ORDERABLES Final Resu lt Performing Organization Address [facility] Co de Phone Number [facility] [place] [address] * (ABNORMAL) Basic metabolic panel (09/13/2024 8:40 PM CDT) [facility] Sodium 139 135 - 145 mmol/L Potassium, pl 4.0 3.3 - 4.9 mmol/L [facility] Chloride 108 97 - 110 mmol/L [facility] CO2 24 22 - 32 mmol/L [facility] Anion gap 7 2 - 15 mmol/L [facility] BUN 21 6 - 25 mg/dL [facility] Creatinine 0.91 0.60 - 1.10 mg/dL [facility] Glucose 125 70 - 199 mg/dL [facility] Comment: Interpretive Data Fasting glucose >/= [...] 2022. Calcium 8.4(L) 8.5 - 10.3 mg/dL [facility] Blood 09/13/2024 8:40 PM CDT 09/13/2024 9:34 PM CDT us Josie Youngblood MD LAB BLOOD ORDERABLES Final Resu lt [facility] [place] [address] * (ABNORMAL) CBC without differential (09/13/2024 6:42 PM CDT) WBC 12.83(H) 3.80 - 9.90 K/cumm Hgb 9.6(L) 11.9 - 15.5 g/dL [facility] Hct 30.0(L) 35.6 - 45.5 % [facility] Plt 170 150 - 400 K/cumm [facility] MPV 9.9 9.1 - 12.3 fL [facility] RBC 3.25(L) 3.90 - 5.20 M/cumm [facility] MCV 92.3 81.3 - 96.4 fL [facility] MCH 29.5 27.1 - 33.3 pg [facility] MCHC 32.0(L) 32.3 - 35.7 g/dL [facility] RDW CV 15.0(H) 11.1 - 14.9 % [facility] RDW SD 50.8(H) 35.7 - 48.1 fL [facility] NRBC abs 0.00 0.00 - 0.01 K/cumm [facility] Blood 09/13/2024 6:42 PM CDT 09/13/2024 6:56 PM CDT Josie Youngblood MD LAB BLOOD ORDERABLES Final Resu lt [facility] [place] [address] * ECG 12 lead (09/13/2024 6:19 PM CDT) Ventricular Rate EKG/Min 79 BPM [facility] Atrial Rate 79 BPM [facility] VT-Interval (MSEC) 170 ms [facility] QRS-Interval (MSEC) 98 ms [facility] QT-Interval (MSEC) 370 ms [facility] QTc 424 ms [facility] P [place] 89 degrees [facility] R [place] -5 degrees [facility] T [place] 31 degrees [facility] Diagnosis Sinus rhythm with Premature atrial complexes Otherwise normal ECG No previous ECGs available Confirmed by MARCELLUS VALENTIN M.D ([id number]) on 09/17/2024 12:52:27 PM [facility] 09/13/2024 6:19 PM CDT 09/17/2024 12:52 PM CDT Josie Youngblood MD ECG ORDERABLES Final Result Performing Organization Address City/[facility]/ZIP Co de Phone Number [facility] * POCT glucose (09/13/2024 2:19 PM CDT) Glucose, POC 110 70 - 199 mg/dL Blood 09/13/2024 2:19 PM CDT 09/13/2024 2:19 PM CDT Cindy Juarez MD LAB POCT ORDERABLE S - DEVICE Final Result [facility] [place] [address] * [place] AN PROCEDURE PLACEHOLDER (09/13/2024 1:52 PM CDT) [...] patient tolerated procedure well with no complications Jae Wagner MD ANESTHESIA ORDERABLE S Final [...] note. us Cindy Juarez MD IMG FLUOROSCOPY VT OCEDURES Final Result [facility] * VT AN ELECTIVE ENDOTRACHEAL AIRWAY, VT AN PROCEDURE PLACEHOLDER (09/13/2024 11:12 AM CDT) Narrative Micki Antonio CRNA - 09/13/2024 11:12 AM CDT Micki Antonio CRNA 09/13/2024 11:13 AM Airway Patient location: OR Urgency: elective Date/time: 09/13/2024 10:23 AM Indications for airway management: anesthesia Difficult airway: no Staff: Supervising provider: Jae Wagner MD Placed by: VALVE MACHINE OPERATOR: Micki Antonio CRNA Emergent airway documentation: Risks [...] MD ANESTHESIA ORDERABLE S Final Result * VT CRITICAL CARE ILL/INJURED PATIENT INIT 30-74 MIN (09/13/2024 6:52 AM CDT) Narrative Elias Dunham Jr., MD - 09/13/2024 6:52 AM CDT [...] 3:57 AM CDT) ABO Rh O Positive [facility] OTHER 09/13/2024 3:57 AM CDT 09/13/2024 4:05 AM CDT Elias Dunham Jr., MD LAB BLOOD ORDERABLES F inal Result [facility] [place] [address] [facility] * XR Outside Reference (09/13/2024 3:29 AM CDT) Impressions [facility] - 09/13/2024 3:29 AM CDT These images are for Reference purposes only and have not been reviewed by [facility]. There will be no report generated by a [facility] Radiologist. Narrative [facility] - 09/13/2024 3:29 AM CDT EXAMINATION: Images For Reference Purposes Only us Naun Felix MD IMG XR PROCEDURES Fin al Result [facility] * XR Femur Right 2 or [...] Mg M.D. us Durga Rogel MD IMG CT [...] it. Electronically signed by: [place] M.D. us Durga Rogel MD IM CT PROCEDURES Final Re sult * XR Outside Reference (09/13/2024 2:57 AM CDT) Impressions [facility] - 09/13/2024 2:57 AM CDT These images are for Reference purposes only and have not been reviewed by [facility]. There will be no report generated by a [facility] Radiologist. Narrative [facility] - 09/13/2024 2:57 AM CDT EXAMINATION: Images For Reference Purposes Only Durga Rogel MD IMG XR PROCEDURES Final Re sult [facility] * XR Outside Reference (09/13/2024 2:33 AM CDT) [facility]ressions [facility] - 09/13/2024 2:33 AM CDT These images are for Reference purposes only and have not been reviewed by [facility]. There will be no report generated by a [facility] Radiologist. Narrative [facility] - 09/13/2024 2:33 AM CDT EXAMINATION: Images For Reference Purposes Only us Durga Rogel MD IMG XR PROCEDURES Final Re sult Performing Organization Address City/[facility]/ZIP Co de Phone Number [email or web address] * POCT creatinine (09/13/2024 2:24 AM CDT) Creatinine POC 0.7 0.6 - 1.1 mg/dL Blood 09/13/2024 2:24 AM CDT 09/13/2024 2:24 AM CDT us Elias Dunham Jr., MD LAB POCT ORDERABLES - DEVICE Final Result Performing Organization Address [facility] Co de Phone Number [facility] [place] [address] * eGFR (09/13/2024 2:00 AM CDT) eGFR 67 >=60 mL/min/1. 73 m2 Comment: [...] Rogel MD LAB BLOOD ORDERABLES Final Result [facility] [place] [address] * (ABNORMAL) Differential, auto (09/13/2024 2:00 AM CDT) Neutrophil abs 9.23(H) 1.50 - 6.50 K/cumm Imm gran abs 0.05 0.00 - 0.10 K/cumm [facility] Lymphocyte abs 1.32 0.80 - 3.30 K/cumm [facility] Monocyte abs 1.17(H) 0.20 - 0.80 K/cumm [facility] Eosinophil abs 0.03 0.00 - 0.50 K/cumm [facility] Basophil abs 0.05 0.00 - 0.10 K/cumm [facility] Neutrophil pct 77.9 % [facility] Comment: Interpretive Data Percent cell count reference ranges are not reported, since discordance with absolute values may lead to misinterpretation of CBC data. Current Interpretive Data was last revised on 2017. Imm gran pct 0.4 % [facility] Comment: Interpretive Data Percent cell count reference ranges are not reported, since discordance with absolute values may lead to misinterpretation of CBC data. Current Interpretive Data was last revised on 2017. Lymphocyte pct 11.1 % [facility] Comment: Interpretive Data Percent cell count reference ranges are not reported, since discordance with absolute values may lead to misinterpretation of CBC data. Current Interpretive Data was last revised on 2017. Monocyte pct 9.9 % [facility] Comment: Interpretive Data Percent cell count reference ranges are not reported, since discordance with absolute values may lead to misinterpretation of CBC data. Current Interpretive Data was last revised on 2017. Eosinophil pct 0.3 % [facility] Comment: Interpretive Data Percent cell count reference ranges are not reported, since discordance with absolute values may lead to misinterpretation of CBC data. Current Interpretive Data was last revised on 2017. Basophil pct 0.4 % [facility] Comment: Interpretive Data Percent cell count reference ranges are not reported, since discordance with absolute values may lead to misinterpretation of CBC data. Current Interpretive Data was last revised on 2017. Blood 09/13/2024 2:00 AM CDT 09/13/2024 2:12 AM CDT us Durga Rogel MD LAB BLOOD ORDERABLES Final Result [facility] [place] [address] * (ABNORMAL) CBC with auto differential (09/13/2024 2:00 AM CDT) WBC 11.85(H) 3.80 - 9.90 K/cumm Hgb 11.8(L) 11.9 - 15.5 g/dL [facility] Hct 36.9 35.6 - 45.5 % [facility] Plt 188 150 - 400 K/cumm [facility] MPV 9.9 9.1 - 12.3 fL [facility] RBC 4.05 3.90 - 5.20 M/cumm [facility] MCV 91.1 81.3 - 96.4 fL [facility] MCH 29.1 27.1 - 33.3 pg [facility] MCHC 32.0(L) 32.3 - 35.7 g/dL [facility] RDW CV 14.9 11.1 - 14.9 % [facility] RDW SD 50.1(H) 35.7 - 48.1 fL [facility] NRBC abs 0.00 0.00 - 0.01 K/cumm [facility] Blood 09/13/2024 2:00 AM CDT 09/13/2024 2:12 AM CDT us Durga Rogel MD LAB BLOOD ORDERABLES Final Result [facility] [place] [address] * XR Chest 1 Vw Portable (09/13/2024 [...] it. Electronically signed by: [employer] Mg M.D. Elias Dunham Jr., MD IMG XR PROCEDURES [...] BLOOD ORDERABLES Final Result Performing Organization Address [facility] de Phone Number [facility] [place] [address] * Protime-INR (09/13/2024 2:00 AM CDT) PT 12.1 9.7 - 13.0 sec INR 1.12 0.90 - 1.20 [facility] Comment: Interpretive data Oral anticoagulant therapeutic ranges: Venous thromboembolism prophylaxis or treatment: 2.0-3.0 CARDIOLOGY Standard range: 2.0-3.0 High-intensity range: 2.5-3.5 Refer to indication-specific guidelines for appropriate target ranges for prosthetic heart valve replacement. Current interpretive data was last revised on 2019. Blood 09/13/2024 2:00 AM CDT 09/13/2024 2:36 AM CDT Durga Rogel MD LAB BLOOD ORDERABLES Final Result Performing Organization Address [facility] de Phone Number [facility] [place] [address] * Type and screen (09/13/2024 2:00 AM CDT) Eleonora, indirect Negative ABO Rh O Positive [facility] Blood 09/13/2024 2:00 AM CDT 09/13/2024 2:11 AM CDT Narrative [facility] - 09/13/2024 2:59 AM CDT Has the patient had Daratumumab or Isatuximab in the past 6 months?->Unknown Durga Rogel MD LAB BLOOD BANK TEST ORDERA BLES Final Result Performing Organization Address City/[facility]/ZIP Co de Phone Number [facility] [place] [address] * Basic metabolic panel (09/13/2024 2:00 AM CDT) [facility] Sodium 143 135 - 145 mmol/L Potassium, pl 3.7 3.3 - 4.9 mmol/L [facility] Chloride 110 97 - 110 mmol/L [facility] CO2 23 22 - 32 mmol/L [facility] Anion gap 10 2 - 15 mmol/L [facility] BUN 21 6 - 25 mg/dL [facility] Creatinine 0.89 0.60 - 1.10 mg/dL [facility] Glucose 117 70 - 199 mg/dL [facility] Comment: Interpretive Data Fasting glucose >/= [...] 2022. Calcium 8.7 8.5 - 10.3 mg/dL [facility] Blood 09/13/2024 2:00 AM CDT 09/13/2024 2:12 AM CDT Durga Rogel MD LAB BLOOD ORDERABLES Final Result Performing Organization Address [facility]/ZIP Co de Phone Number [facility] [place] [address] from Last 3 Months Insurance MEDICARE ADVANTAGE [facility] MEDICARE Address: [address] [address] [place] [address] MEDICARE ADVANTAGE [facility] MEDICARE Address: [facility] [address] [place] [address] Advance Directives For more information, please contact: [phone] * LIMITED - No CPR (Latest Code [...] 2:41 PM 09/14/2024 10:25 AM Care Teams Metal Sprayer Relationship Specialty Start Date End Date Felicity Drake MD [address] [facility] [address] [address] PCP - General Family Practice 09/13/24
[2024-11-06 16:22] LABS: Basophils Absolute Auto 0.1 K/mm3 (0.0-0.1); Basophils Percent Auto 0.6 % (0.2-1.2); Eosinophils Absolute Auto 0.1 K/mm3 (0-0.3); Eosinophils Percent Auto 1.2 % (0-4.4); Hematocrit 40.7 % (37.0-47.0); Hemoglobin 12.3 g/dL (12.0-15.0); Immature Granulocyte Absolute 0.04 K/mm3 (0.00-0.031); Immature Granulocyte Percent A 0.4 % (0-0.5); Lymphocytes Absolute Auto 1.41 K/mm3 (0.9-3.2); Lymphocytes Percent Auto 12.6 % (18.3-44.2); Mean Corpuscular HGB Conc 30.2 g/dl (32-36); Mean Corpuscular Hemoglobin 28.4 pg (26-34); Mean Platelet Volume 9.7 fl (7.4-10.4); Monocytes Absolute Auto 1.1 K/mm3 (0.1-0.6); Monocytes Percent Auto 10.2 % (2.6-8.5); Neutrophils Absolute Auto 8.4 K/mm3 (1.3-6.7); Platelet Count Result 291 k/mm3 (150-375); Red Blood Count 4.33 M/mm3 (4.2-5.4); Red Cell Distribution Width 14.9 % (11.5-14.5); White Blood Count 11.2 K/mm3 (4.5-10.0)
[2024-11-06] MEDS: ONDANSETRON INJ 4 MG/2 ML VIAL IV PUSH (16:22)
[2024-11-06 16:39] LABS: Alanine Aminotransferase 17 U/L (6-35); Albumin Level 4.2 g/dL (3.5-5.1); Alkaline Phosphatase 97 U/L (38-126); Anion Gap 9 mmol/L (4-12); Aspartate Amino Transferase 26 U/L (14-36); Bilirubin,Total 0.3 mg/dL (0.2-1.3); Blood Urea Nitrogen 11 mg/dL (7-17); Calcium 9.4 mg/dL (8.4-10.2); Carbon Dioxide 27 mmol/L (22-30); Chloride 104 mmol/L (98-107); Estimated CRCL calculation 58 ml/min; Estimated Glomerular Filt Rate > 60; Glucose 106 mg/dL (65-110); Lactic Acid Reflex 1.8 mmol/L (0.7-2.0); Lipase 46 U/L (23-300); Magnesium 1.7 mg/dL (1.6-2.3); Potassium 3.8 mmol/L (3.4-5.0); Sodium 140 mmol/L (137-145)
[2024-11-06 16:50] LABS: Troponin I < 0.012 ng/mL (0.000-0.034)
[2024-11-06 16:52] LABS: Partial Thromboplastin Time 29.3 Seconds (22.3-36.8); Prothrombin Time 13.9 Seconds (11.1-14.7)
[2024-11-06] MEDS: CEFEPIME 2 GM/NS 50 ML 2 GM/50 ML BAG IVPB (17:11)
[2024-11-06] MEDS: metroNIDAZOLE 500 MG/ISO 100ML 500 MG/100 ML BAG 100 MG IVPB (17:38)
[2024-11-06 17:44] LABS: Add Urine Microscopic? YES; Appearance Urine Cloudy (Clear); Bacteria Urine 4+ /hpf; Bilirubin Urine Negative (Negative); Blood Urine Negative (Negative); Color Urine Yellow (Yellow); Glucose Urine UA Negative (Negative); Ketones Urine Negative (Negative); Leukocyte Esterase Ur 1+ LEU/UL (Negative); Nitrate Urine Negative (Negative); Non Pathogenic Casts 0-2; Protein Urine Negative (Negative); RBC Urine 0-2 /hpf (0-2); Specific Grav Ur 1.011 (1.001-1.035); Squamous Epithelial Cell Urine None Seen /hpf (Few); Urobilinogen Urine 0.2 mg/dL (<2.0); pH Urine 5.5 (5.0-9.0)
[2024-11-06] MEDS: VANCOMYCIN 1,250 MG/NS 250 ML 1,250 MG/250 ML BAG 166.67 MG IVPB ×2 (18:37→20:11)
--- NOTE | 2024-11-06 21:14 | PC.NURSE ---
bandages to bilateral arms changed.
--- NOTE | 2024-11-06 21:42 | P.HP_ITS ---
H&P: HPI History of Present Illness Date/Time: 11/06/24 21:42 Chief Complaint: Nausea abdominal pain vomiting and wounds on her arms Narrative: 74-year-old female presents to [place] ER with multiple complaints. She had a right knee periprosthetic fracture repaired at [place] recently. She has been wheelchair bound even before that. She presents with nausea vomiting and generalized abdominal pain for 1 day. She also reports 3 days prior to admission she had mosquito bites near her elbows, there were very itchy so she scratch them and over the last 3 days they have become more red and swollen. There was also some pus drainage. White blood cell count 11.2, urinalysis with cloudy appearance, 1+ leukocyte esterase, 11-20 wbc's, 4+ bacteria. Abdomen pelvis CT without acute findings. 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 Right and left forearm x-rays without acute dislocation. Or fracture. She received Zofran, cefepime, vancomycin, metronidazole. Abscess on both forearms medial to the elbows were incised and drained. She felt much better overall afterwards. Review of Systems Review of Systems: All systems reviewed & are unremarkable except as noted in HPI and below (HPI) PMFSH Past Medical History Medical History Cervical cancer screening Morbid obesity Osteoarthritis Prediabetes Spondylosis of lumbar spine with myelopathy Central stenosis of spinal canal Reactive depression Abnormal colonoscopy (~2012) polyps removed - repeat 5 yrs CAD (coronary artery disease) Hypothyroid Essential (primary) hypertension Hyperlipidemia Vitamin D deficiency Surgical History Surgical History H/O shoulder surgery History of surgery on arm (~1972) History of total left knee replacement (~2010) History of tubal ligation (~1973) History of cholecystectomy (~1971) Family History Family History Mother Family history of primary malignant neoplasm of liver Father Family history of coronary artery disease Social History Social History Smoking status: Never smoker Alcohol intake: never Substance use: never Lack of Transportation: No Lack of Food: Never True Current Housing: I Have Housing Concerned About Future Housing: No Difficulty Paying Gas/Electric Bills: No Difficulty Paying for Meds: No Currently Unemployed: No Education: Grade School Difficulty w/ Childcare or Family Care: No Living arrangements: alone Occupation/Education: retired Gender identity (if verbalized by the patient): Female Spiritual care concerns: No Meds Home Medications and Allergies Home Medications ?Medication ?Instructions ?Recorded ?Confirmed ?Type atorvastatin 40 mg tablet 40 mg PO QHS 07/05/22 05/22/23 History ezetimibe 10 mg tablet 10 mg PO DAILY 07/05/22 05/22/23 History qcygfmvffbpu-xsknhfde-lwtcron-folic 1 tablet PO DAILY 07/05/22 05/22/23 History acid 400 mcg-vit K1 20 mcg tablet (One-A-Day Women's 50 Plus) cholecalciferol (vitamin D3) 50 50 mcg PO DAILY 11/10/22 05/22/23 History mcg (2,000 unit) tablet losartan 100 mg tablet 100 mg PO DAILY #90 tabs 06/09/23 Rx aspirin 81 mg tablet,delayed 81 mg PO DAILY #90 tabs 06/20/23 Rx release sertraline 100 mg tablet (Zoloft) 100 mg PO DAILY #90 tabs 07/02/24 Rx levothyroxine 75 mcg tablet 75 mcg PO DAILY #30 tabs 07/31/24 Rx Allergies Allergy/AdvReac Type Severity Reaction Status Date / Time hydrocodone Allergy Severe SET BODY Verified 11/06/24 15:23 ON FIRE methocarbamol Allergy Mild ?NOT Verified 11/06/24 15:23 FAMILIAR WITH MED. Vital Signs Vital Signs - 24 hr 11/06/24 15:11 11/06/24 15:22 11/06/24 15:39 Temperature 97.9 F Pulse Rate 85 84 81 Respiratory Rate 18 19 19 Blood Pressure 116/58 L 116/58 L 112/58 L Pulse Oximetry 98 100 96 Oxygen Delivery Room Air 11/06/24 16:26 11/06/24 16:30 11/06/24 16:45 Temperature Pulse Rate 91 83 82 Respiratory Rate 16 17 16 Blood Pressure Pulse Oximetry 99 98 96 Oxygen Delivery 11/06/24 17:11 11/06/24 17:15 11/06/24 17:16 Temperature Pulse Rate 79 80 78 Respiratory Rate 16 11 L 12 Blood Pressure 149/104 H Pulse Oximetry 96 100 98 Oxygen Delivery 11/06/24 17:30 11/06/24 17:45 11/06/24 18:04 Temperature Pulse Rate 83 79 84 Respiratory Rate 17 23 H 20 Blood Pressure Pulse Oximetry 98 93 Oxygen Delivery 11/06/24 18:15 11/06/24 18:30 11/06/24 18:45 Temperature Pulse Rate 79 77 77 Respiratory Rate 18 21 H 25 H Blood Pressure Pulse Oximetry 96 91 Oxygen Delivery 11/06/24 19:00 11/06/24 19:15 11/06/24 19:16 Temperature Pulse Rate 73 80 79 Respiratory Rate 18 14 15 Blood Pressure 129/79 Pulse Oximetry 91 99 99 Oxygen Delivery 11/06/24 21:15 Temperature Pulse Rate 83 Respiratory Rate 18 Blood Pressure 140/78 Pulse Oximetry 99 Oxygen Delivery Exam Const: General: comfortable and no acute distress HENMT: Mouth: Yes moist mucous membranes Eyes: Pupils: Equal, round and reactive pupils present Neck: Neck: supple Resp: Effort & Inspection: normal respiratory effort Auscultation: clear to auscultation bilaterally Cardio: Rate: regular rate Rhythm: regular rhythm GI: Inspection: non-distended GI Palp: Yes Soft to palpation and No Tender ness to palpation present (GI) Auscultation: normal bowel sounds : General: Yes bladder normal to palpation Extrem: General: no edema H&P: Results Labs Labs: Short CBC 11/06/24 Range/Units 16:10 WBC 11.2 H (4.5-10.0) K/mm3 Hgb 12.3 (12.0-15.0) g/dL Hct 40.7 (37.0-47.0) % Plt Count 291 D (150-375) k/mm3 BMP 11/06/24 16:10 Sodium 140 Potassium 3.8 Chloride 104 Carbon Dioxide 27 BUN 11 D Creatinine 0.81 Glucose 106 Calcium 9.4 Cardiac Enzymes 11/06/24 Range/Units 16:10 Troponin I < 0.012 (0.000-0.034) ng/mL Liver Function 11/06/24 Range/Units 16:10 Total Bilirubin 0.3 (0.2-1.3) mg/dL AST 26 (14-36) U/L ALT 17 (6-35) U/L Alkaline Phosphatase 97 (38-126) U/L Albumin 4.2 (3.5-5.1) g/dL Urine 11/06/24 Range/Units 17:36 Urine Color Yellow (Yellow) Urine Appearance Cloudy H (Clear) Urine pH 5.5 (5.0-9.0) Ur Specific [place] 1.011 (1.001-1.035) Urine Protein Negative (Negative) mg/dL Urine Glucose (UA) Negative (Negative) mg/dL Assessment and Plan Assessment and plan (1) Acute UTI: Code(s): N39.0 - Urinary tract infection, site not specified Status: Acute (2) Cellulitis and abscess of upper arm and forearm: Status: Acute Plan Continue cefepime metronidazole vancomycin for now. Follow-up blood cultures and urine culture. Trend WBC, she has a slight leukocytosis. She is overall feeling better. SCDs. Full code. Hospitalist MIPS Advance Care Plan I have confirmed that the patient's Advanced Care Plan is present, code status is documented, or surrogate decision maker is listed in patient medical record.: Yes Medication Reconciliation I have utilized all available resources to obtain, update and review the patients current medications (includes all prescriptions, OTC, herbals, cannabis, and nutritional supplements).: Yes
--- NOTE | 2024-11-06 22:29 | ADMGEN ---
This patient, Devi Redd, was admitted to [facility] Surg Room 317-02. Patient/family oriented to hospital policies and general routines including ID bracelet, bed and alarms, visiting hours, pain management, procedures, bathroom and other care routines, personal items, smoking policy, room service/diet, and visiting hours. Information on how to activate the Rapid Response Team has been discussed. Patient/Family are encouraged to report perceived risks to care and to ask questions if they do not understand what they are told or what they should do.
[2024-11-07] VITALS (7 sets, daily range): BP systolic 92–128; BP diastolic 45–71; PULSE 58–85; RESP 14–20; TEMP 35.9–36.3; O2SAT 95–100
[2024-11-07] MEDS: metroNIDAZOLE 500 MG/ISO 100ML 500 MG/100 ML BAG 100 MG IVPB ×2 (01:32→08:51)
[2024-11-07] MEDS: ONDANSETRON INJ 4 MG/2 ML VIAL IV PUSH ×3 (02:34→12:14)
[2024-11-07] MEDS: CEFEPIME 1 GM/NS 50 ML 1 GM/50 ML BAG IVPB (04:53)
[2024-11-07] MEDS: LEVOTHYROXINE SODIUM 75 MCG TABLET PO (06:21)
[2024-11-07 07:59] LABS: Basophils Absolute Auto 0.1 K/mm3 (0.0-0.1); Basophils Percent Auto 0.8 % (0.2-1.2); Eosinophils Absolute Auto 0.3 K/mm3 (0-0.3); Eosinophils Percent Auto 4.1 % (0-4.4); Hematocrit 37.5 % (37.0-47.0); Hemoglobin 11.2 g/dL (12.0-15.0); Immature Granulocyte Absolute 0.03 K/mm3 (0.00-0.031); Immature Granulocyte Percent A 0.4 % (0-0.5); Lymphocytes Absolute Auto 1.79 K/mm3 (0.9-3.2); Lymphocytes Percent Auto 21.7 % (18.3-44.2); Mean Corpuscular HGB Conc 29.9 g/dl (32-36); Mean Corpuscular Hemoglobin 28.4 pg (26-34); Mean Corpuscular Volume 94.9 fl (80-100); Monocytes Absolute Auto 0.8 K/mm3 (0.1-0.6); Monocytes Percent Auto 9.3 % (2.6-8.5); Neutrophils Absolute Auto 5.3 K/mm3 (1.3-6.7); Neutrophils Percent Auto 63.7 % (45.5-73.1); Platelet Count Result 250 k/mm3 (150-375); Red Blood Count 3.95 M/mm3 (4.2-5.4); Red Cell Distribution Width 14.9 % (11.5-14.5); White Blood Count 8.3 K/mm3 (4.5-10.0)
--- NOTE | 2024-11-07 08:19 | PM.IMPN ---
Progress Note: A&P Assessment and Plan (1) Acute UTI: Code(s): N39.0 - Urinary tract infection, site not specified Status: Acute Assessment and Plan: UA showed 1+ leukocyte esterase, 11-20 white blood cells, 4+ bacteria Urine Cultures pending Continue cefepime for now Await urine culture De-escalate antibiotic therapy with culture results (2) Cellulitis and abscess of upper arm and forearm: Status: Acute Assessment and Plan: Patient presented with source of her arms with red, hot, swollen, purulent drainage from scratching mosquito bites Left-sided forearm x-ray showed a hematoma medial elbow with possible foreign bodies right forearm x-ray shows no acute fracture dislocation change cefepime Flagyl and vancomycin to Augmentin for now wound culture Trend symptoms Adjust antibiotic therapy when appropriate Blood cultures pending Adjust therapy as indicated De-escalate therapy when appropriate (3) Essential (primary) hypertension: Code(s): I10 - Essential (primary) hypertension Status: Acute Assessment and Plan: BP 110/46 Continue losartan 100mg PO daily Trend BP Adjust accordingly (4) Hyperlipidemia: Qualifiers: Hyperlipidemia type: mixed hyperlipidemia Qualified Code(s): E78.2 - Mixed hyperlipidemia Code(s): E78.5 - Hyperlipidemia, unspecified Status: Acute Assessment and Plan: Continue atorvastatin and Zetia (5) Hypothyroid: Qualifiers: Hypothyroidism type: acquired Qualified Code(s): E03.9 - Hypothyroidism, unspecified Code(s): E03.9 - Hypothyroidism, unspecified Status: Acute Assessment and Plan: Continue levothyroxine 75mcg PO daily Time Spent With Patient Time: 52 minutes Time with patient: Greater than 35 minutes Subjective Date/time seen: 11/07/24 08:19 Interval history: 11/07/24 Patient is lying in bed. Patient states she is very nauseous. She denies any current chest pain, shortness a breath, nausea, vomiting diarrhea or constipation. Patient states that she has just over feeling terrible. Reglan has been ordered along with wound culture. 11/06/24 74-year-old female presents to [place] [facility] with multiple complaints. She had a right knee periprosthetic fracture repaired at [place] recently. She has been wheelchair bound even before that. She presents with nausea vomiting and generalized abdominal pain for 1 day. She also reports 3 days prior to admission she had mosquito bites near her elbows, there were very itchy so she scratch them and over the last 3 days they have become more red and swollen. There was also some pus drainage. White blood cell count 11.2, urinalysis with cloudy appearance, 1+ leukocyte esterase, 11-20 wbc's, 4+ bacteria. Abdomen pelvis CT without acute findings. 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 Right and left forearm x-rays without acute dislocation. Or fracture. She received Zofran, cefepime, vancomycin, metronidazole. Abscess on both forearms medial to the elbows were incised and drained. She felt much better overall afterwards. Review of Systems Review of Systems: All systems reviewed & are unremarkable except as noted in HPI and below Exam Narrative: General: well-nourished, well-appearing 74-year-old female, sitting up in bed, comfortable, NARD Neuro: awake, alert and oriented x4, speech clear, no focal neuro deficits noted HEENMT: normocephalic, atraumatic, EOMI, sclerae anicteric, moist oral mucosa Respiratory: Clear to auscultation bilaterally without crackles, rhonchi or wheezes, nonlabored breathing Cardio: regular rate, regular rhythm with S1-S2 Abdomen: nondistended, normoactive bowel sounds, soft, nontender to palpation Extremities: no edema, erythema, or tenderness to palpation, DP pulses 2+ bilaterally Skin: no rashes or lesions, warm and dry Psych: appropriate mood and affect, judgment and insight intact Objective Data Vital Signs Vital Signs: Vital Signs - 24 hr 11/06/24 15:11 11/06/24 15:22 11/06/24 15:39 Temperature 97.9 F Pulse Rate 85 84 81 Respiratory Rate 18 19 19 Blood Pressure 116/58 L 116/58 L 112/58 L Pulse Oximetry 98 100 96 Oxygen Delivery Room Air 11/06/24 16:26 11/06/24 16:30 11/06/24 16:45 Temperature Pulse Rate 91 83 82 Respiratory Rate 16 17 16 Blood Pressure Pulse Oximetry 99 98 96 Oxygen Delivery 11/06/24 17:11 11/06/24 17:15 11/06/24 17:16 Temperature Pulse Rate 79 80 78 Respiratory Rate 16 11 L 12 Blood Pressure 149/104 H Pulse Oximetry 96 100 98 Oxygen Delivery 11/06/24 17:30 11/06/24 17:45 11/06/24 18:04 Temperature Pulse Rate 83 79 84 Respiratory Rate 17 23 H 20 Blood Pressure Pulse Oximetry 98 93 Oxygen Delivery 11/06/24 18:15 11/06/24 18:30 11/06/24 18:45 Temperature Pulse Rate 79 77 77 Respiratory Rate 18 21 H 25 H Blood Pressure Pulse Oximetry 96 91 Oxygen Delivery 11/06/24 19:00 11/06/24 19:15 11/06/24 19:16 Temperature Pulse Rate 73 80 79 Respiratory Rate 18 14 15 Blood Pressure 129/79 Pulse Oximetry 91 99 99 Oxygen Delivery 11/06/24 21:15 11/06/24 22:13 11/06/24 22:41 Temperature 97.7 F Pulse Rate 83 75 73 Respiratory Rate 18 19 14 Blood Pressure 140/78 141/69 H Pulse Oximetry 99 99 99 Oxygen Delivery 11/07/24 06:00 Temperature 97.4 F L Pulse Rate 58 L Respiratory Rate 14 Blood Pressure 110/46 L Pulse Oximetry 97 Oxygen Delivery Intake/Output Intake/Output: Intake & Output 11/04/24 11/05/24 11/06/24 11/07/24 23:59 23:59 23:59 23:59 Intake Total 650 250 Output Total 150 0 Balance 500 250 Meds/Results Medications: Active Medications Generic Name Dose Route Start Last Admin Trade Name Freq PRN Reason Stop Dose Admin Acetaminophen 650 mg 11/07/24 02:53 Acetaminophen 325 Mg Tablet PO Q4H PRN fever or pain Aspirin 81 mg 11/07/24 09:00 Aspirin 81 Mg Enteric Tablet PO DAILY [facility] Atorvastatin Calcium 40 mg 11/07/24 21:00 Atorvastatin 40 Mg Tablet PO QHS GARCIA Cefepime HCl 1 gm in 50 mls @ 100 mls/hr 11/07/24 05:00 11/07/24 05:25 Maxipime 1 Gm/Ns 50 Ml IVPB Infused Q12H GARCIA Infusion Metronidazole 500 mg in 100 mls @ 100 mls/hr 11/07/24 02:00 11/07/24 02:34 Flagyl 500 Mg/Iso Soln 100 Ml IVPB Infused Q8H GARCIA Infusion Vancomycin HCl 1,500 mg in 500 mls @ 250 mls/hr 11/07/24 20:00 Vancomycin 1,500 Mg/Ns 500 Ml IVPB Q24H GARCIA Levothyroxine Sodium 75 mcg 11/07/24 06:30 11/07/24 06:21 Levothyroxine Sodium 75 Mcg Tablet PO 75 mcg DAILY@0630 GARCIA Administration Losartan Potassium 100 mg 11/07/24 09:00 Losartan Potassium 100 Mg Tablet PO DAILY [facility] Ondansetron HCl 4 mg 11/06/24 18:32 11/07/24 02:34 Ondansetron Inj 4 Mg/2 Ml Vial IV PUSH 4 mg Q4H PRN Administration Nausea Sertraline HCl 100 mg 11/07/24 09:00 Sertraline Hcl 50 Mg Tablet PO DAILY [facility] Vitamin D 50 mcg 11/07/24 09:00 Cholecalciferol (Vitamin D3) 25 Mcg (1,000 Units) Tablet PO DAILY [facility] Radiology Results: ITS Impressions Chest X-Ray 11/06/24 15:50 IMPRESSION: No focal infiltrate or effusion. Forearm X-Ray 11/06/24 15:52 IMPRESSION: No acute fracture or dislocation Abdomen/Pelvis CT 11/06/24 17:07 IMPRESSION: No acute pathology is identified within the lower chest, abdomen or pelvis. Innumerable nonacute findings, as detailed above. Labs Labs: Laboratory Results - last 24 hr 11/06/24 11/06/24 16:10 17:36 WBC 11.2 H RBC 4.33 Hgb 12.3 Hct 40.7 MCV 94.0 MCH 28.4 MCHC 30.2 L RDW 14.9 H Plt Count 291 D MPV 9.7 Immature Gran % (Auto) 0.4 Neut % (Auto) 75.0 H Lymph % (Auto) 12.6 L Fallon % (Auto) 10.2 H Eos % (Auto) 1.2 Baso % (Auto) 0.6 Lymph # (Auto) 1.41 Fallon # (Auto) 1.1 H Eos # (Auto) 0.1 Baso # (Auto) 0.1 Abs Immat Gran (auto) 0.04 H Absolute Neuts (auto) 8.4 H Absolute Nucleated RBC 0.000 Nucleated RBC % 0.0 PT 13.9 INR 1.0 APTT 29.3 Sodium 140 Potassium 3.8 Chloride 104 Carbon Dioxide 27 Anion Gap 9 BUN 11 D Creatinine 0.81 Estim Creat Clear Calc 58 Estimated GFR > 60 Glucose 106 Lactic Acid 1.8 Calcium 9.4 Magnesium 1.7 Total Bilirubin 0.3 AST 26 ALT 17 Alkaline Phosphatase 97 Troponin I < 0.012 Total Protein 8.0 Albumin 4.2 Lipase 46 Procalcitonin 0.0 Urine Color Yellow Urine Appearance Cloudy H Urine pH 5.5 Ur Specific Depue 1.011 Urine Protein Negative Urine Glucose (UA) Negative Urine Ketones Negative Ur Blood (Man) Negative Urine Nitrate Negative Urine Bilirubin Negative Urine Urobilinogen 0.2 Leukocyte Esterase Rfl 1+ H Urine RBC 0-2 Urine WBC 11-20 H Ur Squamous Epith Cells None seen Urine Bacteria 4+ H Urine Casts 0-2 Quality VTE Prophylaxis VTE prophylaxis: mechanical ordered and pharmacologic ordered
[2024-11-07 08:24] LABS: Anion Gap 8 mmol/L (4-12); Blood Urea Nitrogen 10 mg/dL (7-17); Calcium 9.2 mg/dL (8.4-10.2); Carbon Dioxide 25 mmol/L (22-30); Chloride 106 mmol/L (98-107); Estimated CRCL calculation 61 ml/min; Estimated Glomerular Filt Rate > 60; Glucose 94 mg/dL (65-110); Potassium 4.2 mmol/L (3.4-5.0); Sodium 139 mmol/L (137-145)
[2024-11-07 08:34] LABS: Anisocytosis 1+; Hypochromasia 1+; Ovalocytes 1+; Platelet Estimate Adequate (Adequate); Schistocytes None Seen
[2024-11-07] MEDS: CHOLECALCIFEROL (VITAMIN D3) 25 MCG (1,000 UNITS) TABLET 50 MCG PO (08:42)
[2024-11-07] MEDS: SERTRALINE HCL 50 MG TABLET 100 MG PO (08:43)
[2024-11-07] MEDS: LOSARTAN POTASSIUM 100 MG TABLET PO (08:43)
[2024-11-07] MEDS: ASPIRIN 81 MG ENTERIC TABLET PO (08:43)
[2024-11-07] MEDS: ACETAMINOPHEN 325 MG TABLET 650 MG PO (08:47)
[2024-11-07] MEDS: MUPIROCIN 2% OINT 22 GM TUBE 1 APPLIC EACH NARE ×2 (12:16→20:27)
[2024-11-07 13:26] LABS: MRSA (PCR) NOT DETECTED (NOT DETECTE)
[2024-11-07] MEDS: METOCLOPRAMIDE HCL INJ 10 MG/2 ML VIAL IV PUSH (14:37)
[2024-11-07] MEDS: AMOXICILLIN/CLAVULANATE K 875-125 MG TAB 1 TABLET PO (20:22)
[2024-11-07] MEDS: ATORVASTATIN 40 MG TABLET PO (20:22)
[2024-11-08 04:45] VITALS: BP 111/54; PULSE 67; RESP 20; TEMP 36; O2SAT 97
[2024-11-08] MEDS: LEVOTHYROXINE SODIUM 75 MCG TABLET PO (04:57)
[2024-11-08] MEDS: ACETAMINOPHEN 325 MG TABLET 650 MG PO (04:57)
[2024-11-08] MEDS: ASPIRIN 81 MG ENTERIC TABLET PO (09:28)
[2024-11-08] MEDS: MUPIROCIN 2% OINT 22 GM TUBE 1 APPLIC EACH NARE (09:28)
[2024-11-08] MEDS: AMOXICILLIN/CLAVULANATE K 875-125 MG TAB 1 TABLET PO (09:28)
[2024-11-08] MEDS: LOSARTAN POTASSIUM 100 MG TABLET PO (09:28)
[2024-11-08] MEDS: CHOLECALCIFEROL (VITAMIN D3) 25 MCG (1,000 UNITS) TABLET 50 MCG PO (09:28)
[2024-11-08] MEDS: SERTRALINE HCL 50 MG TABLET 100 MG PO (09:28)
--- NOTE | 2024-11-08 11:28 | P.DS_ITS ---
DS: Admitting Diagnosis Discharge Date 11/08/2024 Admitting Diagnosis Upper extremity cellulitis possible dermatitis DS: Discharge Diagnosis Discharge Diagnosis (1) Acute UTI: Code(s): N39.0 - Urinary tract infection, site not specified Status: Acute Assessment and Plan: * UA showed 1+ leukocyte esterase, 11-20 white blood cells, 4+ bacteria * Urine Cultures pending * Continue cefepime for now * Await urine culture * De-escalate antibiotic therapy with culture results (2) Cellulitis and abscess of upper arm and forearm: Status: Acute Assessment and Plan: * Patient presented with source of her arms with red, hot, swollen, purulent drainage from scratching mosquito bites * Left-sided forearm x-ray showed a hematoma medial elbow with possible foreign bodies * right forearm x-ray shows no acute fracture dislocation * change cefepime Flagyl and vancomycin to Augmentin for now * wound culture * Trend symptoms * Adjust antibiotic therapy when appropriate * Blood cultures pending * Adjust therapy as indicated * De-escalate therapy when appropriate (3) Essential (primary) hypertension: Code(s): I10 - Essential (primary) hypertension Status: Acute Assessment and Plan: * BP 110/46 * Continue losartan 100mg PO daily * Trend BP * Adjust accordingly (4) Hyperlipidemia: Qualifiers: Hyperlipidemia type: mixed hyperlipidemia Qualified Code(s): E78.2 - Mixed hyperlipidemia Code(s): E78.5 - Hyperlipidemia, unspecified Status: Acute Assessment and Plan: * Continue atorvastatin and Zetia (5) Hypothyroid: Qualifiers: Hypothyroidism type: acquired Qualified Code(s): E03.9 - Hypothyroidism, unspecified Code(s): E03.9 - Hypothyroidism, unspecified Status: Acute Assessment and Plan: * Continue levothyroxine 75mcg PO daily DS: Summary Hospital Course Reason for hospitalization: 74-year-old female presents to [facility] with multiple complaints. She had a right knee periprosthetic fracture repaired at [place] recently. She has been wheelchair bound even before that. She presents with nausea vomiting and generalized abdominal pain for 1 day. She also reports 3 days prior to admission she had mosquito bites near her elbows, there were very itchy so she scratch them and over the last 3 days they have become more red and swollen. There was also some pus drainage. White blood cell count 11.2, urinalysis with cloudy appearance, 1+ leukocyte esterase, 11-20 wbc's, 4+ bacteria. Abdomen pelvis CT without acute findings. 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 Right and left forearm x-rays without acute dislocation. Or fracture. She received Zofran, cefepime, vancomycin, metronidazole. Abscess on both forearms medial to the elbows were incised and drained. She felt much better overall afterwards. Hospital Course: Patient was initiated on cefepime along Flagyl and vancomycin. Cultures were sent showed no growth today. Blood cultures show no growth today. Urine culture did come back with E coli however most likely a colonization. Patient is asymptomatic and denies any urinary symptoms including urgency, frequency or pain. Currently patient is doing well she is nauseous. Patient was given 1 time dose of Reglan will be sent home with Phenergan. Patient does have nausea general however she states this just slightly worse than normal. She is eating okay and she is denying any chest pain, shortness a breath, vomiting, diarrhea or constipation. Patient is stable for discharge for labs and vital signs. Educated patient about care at home patient verbalized understanding. Plan is been updated with the patient as well who agrees with this plan at this time Status at Discharge Functional status at discharge: wheelchair bound Overall status at discharge: patient is progressing back to baseline Time Spent with Patient Time attestation: Total time spent providing and/or coordinating discharge services: 48 minutes Time spent: Greater than 30 minutes Specific discharge activities: Diagnostic testing, chart review, developing a treatment plan, education, care coordination documentation, physical exam, result review Exam Narrative: General: well-nourished, well-appearing 74-year-old female, sitting up in bed, comfortable, NARD Neuro: awake, alert and oriented x4, speech clear, no focal neuro deficits noted HEENMT: normocephalic, atraumatic, EOMI, sclerae anicteric, moist oral mucosa Respiratory: Clear to auscultation bilaterally without crackles, rhonchi or wheezes, nonlabored breathing Cardio: regular rate, regular rhythm with S1-S2 Abdomen: nondistended, normoactive bowel sounds, soft, nontender to palpation Extremities: no edema, erythema, or tenderness to palpation, DP pulses 2+ bilaterally Skin: no rashes or lesions, warm and dry Psych: appropriate mood and affect, judgment and insight intact DS: Data Data Completed and Pending Labs on day of discharge: Labs from last 24 hours 11/07/24 12:08 Nasal MRSA (PCR) Not detected Preliminary micro results at discharge 11/07/24 15:42 Anaerobic Culture - Preliminary Arm Right 11/07/24 15:43 Anaerobic Culture - Preliminary Arm Left 11/06/24 17:36 Urine Culture Reflexed - Preliminary Unspecified Urine Escherichia Coli 11/06/24 16:12 Blood Culture - Preliminary Blood 11/06/24 16:10 Blood Culture - Preliminary Blood Discharge Plan Discharge Attending physician on discharge: Carol Herrera Consulting providers: Frank Mora; Shayy Moran; Priscilla Armando; Zackery Jones Discharging Clinician: Frank Mora Patient Disposition: Home Activity: may shower, unlimited and as tolerated Diet: as tolerated Discharge Instructions: * Take all medications as prescribed even if feeling better * Continue antibiotic therapy with Augmentin every 12 hours complete the entire course * Eat well balanced meals and stay hydrated * Keep active to remain strong * Avoid use of diapers or pads * Good jany Care every 2 hours * Trend urine output * If you should experience any chest pain, shortness of breath, temps >100.4 or any other worrisome symptoms please follow up with your PCP come back to the hospital * Follow up with your primary in 1 weeks * It has been a pleasure taking care of you thank you for using our services Cleanse wounds Every 12 hours with water or saline. Then apply Mupirocin ointment to wounds and cover with foam border dressing Patient Instructions: Antibiotic Form Patient Language: [place] Stand Alone Forms: General Discharge Information Follow-up/Referrals: Elza Drake MD [Primary Care Provider] - 1 Week Discharge Medications: New amoxicillin-pot clavulanate 875-125 mg tablet 1 tablet PO Q12H Qty: 10 0RF promethazine 25 mg tablet 25 mg PO Q6H PRN (Reason: nausea and vomiting) Qty: 120 0RF Continued One-A-Day Women's 50 Plus 400-20 mcg tablet 1 tablet PO DAILY ezetimibe 10 mg tablet 10 mg PO DAILY atorvastatin 40 mg tablet 40 mg PO QHS cholecalciferol (vitamin D3) 50 mcg (2,000 unit) tablet 50 mcg PO DAILY Jardiance 25 mg tablet 25 mg PO DAILY acetaminophen [Tylenol] 325 mg tablet 650 mg PO Q4H PRN (Reason: fever or pain) losartan 100 mg tablet 100 mg PO DAILY Qty: 90 0RF Rx Instructions: due for an appointment. Last refill until seen. aspirin 81 mg tablet,delayed release (DR/EC) 81 mg PO DAILY Qty: 90 0RF Rx Instructions: due for an appointment. last refill until seen. sertraline [Zoloft] 100 mg tablet 100 mg PO DAILY Qty: 90 0RF Rx Instructions: last refill until seen due for an appointment levothyroxine 75 mcg tablet 75 mcg PO DAILY Qty: 30 0RF Rx Instructions: LAST REFILL, NEEDS APPOINTMENT Date of admission: 11/06/24 18:33 Primary Care Provider: Elza Drake Admitting Provider: Prince Phipps Attending physician on admission: Carol Herrera Condition: Stable Quality VTE Prophylaxis VTE prophylaxis: mechanical ordered and pharmacologic ordered Hospitalist MIPS Heart Failure (Exclusion) Patient has history of Heart Transplant or Left Ventricular Assistive Device?: No IF YES, STOP HERE Heart Failure (Qualifier) Patient has current or prior documentation of LVEF less than or equal to 40%, or mod/servere depressed LVSF?: No IF NO, STOP HERE
[2024-11-08] MEDS: METOCLOPRAMIDE HCL INJ 10 MG/2 ML VIAL IV PUSH (13:32)
== END 2024-11-08 14:35 | disposition home or self-care (01) ==
LOC: ANHED 18:35 → ANH3MEDSUR 11-08 08:21
PROVIDERS: Nurse Practitioner; Admitting Provider Family Medicine; Emergency Provider Emergency Medicine; PCP Family Medicine; Visit Provider Internal Medicine
DX: L02.414 Cutaneous abscess of left upper limb (principal); L02.413 Cutaneous abscess of right upper limb; N39.0 Urinary tract infection, site not specified; R11.2 Nausea with vomiting, unspecified; I10 Essential (primary) hypertension; E78.2 Mixed hyperlipidemia; E03.9 Hypothyroidism, unspecified; Z79.899 Other long term (current) drug therapy; Z74.01 Bed confinement status
CPT/HCPCS: 10061; 36415; 71045; 73090; 74177; 80048; 80053; 81001; 83605; 83690; 83735; 84145; 84484; 85025; 85610; 85730; 87040; 87070; 87075; 87077; 87086; 87147; 87181; 87186; 87205; 87641; 96365; 96366; 96367; 96368; 96375; 96376; 99212; 99285; A9270; G0378; G0463; J0692; J1836; J2405; J2765; J3370; Q9967

== ENCOUNTER 2025-01-15 18:14 | Emergency (ER) | payer MEDICARE, SELFPAY ==
--- NOTE | ~2025-01-15 | CT_ITS ---
CLINICAL INDICATION: Lower abdominal pain COMPARISON: 11/06/2024. TECHNIQUE: Multiple contiguous axial images of the abdomen and pelvis were performed following the ad ministration of with 100 mL Omnipaque-350 intravenous contrast The dose-length product (DLP) was 1417.34 mGy-cm. Automated exposure control and iterative reconstruction technique were employed. FINDINGS/OBSERVATIONS: Visualized lower thorax: The bilateral lung bases are clear. The heart is of normal size, without pericardial effusion. Small hiatal hernia is present. Liver: The liver demonstrates homogeneous enhancement and is not enlarged. Gallbladder and biliary system: The gallbladder is surgically absent. Pancreas: The pancreas demonstrates fatty atrophy and enhances homogeneously without ductal dilatation. Spleen: The spleen enhances homogeneously and is not enlarged. Kidneys: The bilateral kidneys enhance symmetrically without hydronephrosis or renal calculi. Adrenal glands: Unremarkable. Gastrointestinal tract: Bowel loops are unremarkable Appendix: The air-filled appendix is of normal caliber (axial series, images 100 through 117). Vasculature: Trace calcified atherosclerotic disease without aneurysmal dilatation. Lymph nodes: No pathologically enlarged or morphologically suspicious lymph nodes within the retroperitoneum or at the root of the mesentery. Pelvic structures: The bladder is distended, and otherwise unremarkable. The uterus is anteverted and anteflexed, extending to the left of midline Body wall and musculoskeletal: Small fat-containing umbilical hernia. Severe bilateral femoral acetabular joint space narrowing with additional findings suggesting avascul ar necrosis and erosion of the bilateral femoral heads. Intramedullary radha within the right femur. Age-appropriate degenerative disease within the lower thoracic or lumbosacral spine. 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 Fatty atrophy of the pancreas. Otherwise, unremarkable contrast-enhanced CT examination of the abdomen and pelvis, as detailed above . Reviewed, dictated and finalized at location A. 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 Fatty atrophy of the pancreas. Otherwise, unremarkable contrast-enhanced CT examination of the abdomen and pel vis, as detailed above.
[2025-01-15 18:28] VITALS: BP 160/80; PULSE 80; RESP 18; TEMP 36.6; O2SAT 100
[2025-01-15 19:17] VITALS: BP 134/87; PULSE 65; RESP 18; O2SAT 98
[2025-01-15 19:23] LABS: Hematocrit 41.6 % (37.0-47.0); Hemoglobin 12.7 g/dL (12.0-15.0); Immature Granulocyte Percent A 0.4 % (0-0.5); Lymphocytes Absolute Auto 1.89 K/mm3 (0.9-3.2); Mean Corpuscular HGB Conc 30.5 g/dl (32-36); Mean Corpuscular Hemoglobin 27.5 pg (26-34); Mean Corpuscular Volume 90.0 fl (80-100); Nucleated Red Blood Cells Absolute Auto 0.000 K/mm3 (0.0-0.012); Nucleated Red Blood Cells Perc 0.0 % (0.0-0.2); Platelet Count Result 267 k/mm3 (150-375); Red Blood Count 4.62 M/mm3 (4.2-5.4); White Blood Count 8.0 K/mm3 (4.5-10.0)
[2025-01-15 19:32] LABS: Alanine Aminotransferase 14 U/L (6-35); Albumin Level 4.0 g/dL (3.5-5.1); Alkaline Phosphatase 99 U/L (38-126); Anion Gap 7 mmol/L (4-12); Aspartate Amino Transferase 28 U/L (14-36); Bilirubin,Total 0.4 mg/dL (0.2-1.3); Blood Urea Nitrogen 16 mg/dL (7-17); Calcium 9.4 mg/dL (8.4-10.2); Carbon Dioxide 28 mmol/L (22-30); Chloride 104 mmol/L (98-107); Estimated Glomerular Filt Rate > 60; Glucose 98 mg/dL (65-110); Lipase 56 U/L (23-300); Potassium 4.3 mmol/L (3.4-5.0); Sodium 139 mmol/L (137-145); Total Protein 7.8 g/dL (6.3-8.2)
--- OUTSIDE RECORDS SUMMARY | 2025-01-15 19:42 | XMS_ITS | Clinical Summary ---
Author Organization [facility] Address [address] [place] [address] Care Team Providers Care Bottle Inspector Name Role Phone Felicity Drake MD Primary Care Provider Allergies Active Allergy Reactions Criticality Noted Date Comments Dye Unknown Low 08/27/2015 Metformin Unknown Low 03/15/2016 Medications levothyroxine (SYNTHROID) 75 mcg tablet Take 1 tablet (75 mcg total) by mouth health aid before breakfast 5 Active losartan (COZAAR) 100 [...] & Plan (09/17/2024 8:16 AM CDT): Completed [id number] - [place], [place] - [address] [facility] [address] [facility] [address] [facility] [id number] [x]Treatment note completed Abnormal finding on CT [...] - 10/31/2024 11:59 PM CDT Hospital Encounter [facility] [address] [place] [id number] Other fracture of right femur, initial encounter for closed fracture (HCC) Discharge Disposition: Discharge to home or self care 10/31/2024 12:00 PM CDT Office Visit [facility] [address] [place] [address] [facility] [address]th [place] [address] [place] [address] Cindy Juarez MD Other fracture of right femur, initial encounter for closed fracture (HCC) (Primary Dx) 10/24/2024 Telephone [facility] [address] [facility] [address] [place] [address] [place] [id number] Chrissy Bernal MS 10/24/2024 Telephone [facility] [address] [facility] [address] [place] [address] [place] [address] Chrissy Bernal MS from Last 3 Months Social History Tobacco Use Types Packs/Day Years Used Date Smoking Tobacco: Never Tobacco Cessation:Counseling Given: Not Answered [facility] Utilities Answer Date Recorded In the past 12 months has e [employer], gas, oil, or water [employer] threatened to shut off services in your [...] often do you attend chur ch or worship services? Never 09/13/2024 Do you belong to any clubs o r organizations such as jewish groups, unions, fraternal or athletic groups, or [...] care, and heating? Not very hard 09/13/2024 [facility] [place] [facility] Occupat ional Health - Occupational Stress [...] any time in the past 12 m [facility], were you homeless or living in a group home (including now)? No 09/13/2024 Personal Safety Answer Date Recorded Have you ever been in or are you currently in a harmful physical or emotional relationship or is someone making you feel afraid or unsafe? 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 Gender Identity Not on file Sexual Orientation [...] 1998 Well Visit 65+ 2013 Influenza Vaccine (#1) 2025 Hemoglobin A1C 03/16/2025 09/14/2024, 09/13/2024 eGFR 09/16/2025 09/16/2024, 04/11/2024, 09/13/2024, Additional history exists Fall Risk Assessment 09/17/2025 09/17/2024 Medical Devices Implanted Type Area Creative Services Producer Device Identifier Shelf Expiration Date Model / Serial / Lot [employer] Nail Intramedullary Long Femoral Retrograde T2 Alpha 99d529ut Titanium [id number] - [id number] Implanted:Qty: 1 on 09/13/2024 by Cindy Juarez MD at [facility] Nail Right: Femur [employer] 01/09/2034 [id number] S / / [id number] [employer] Screw Bone 5mm 80mm Lock Strl 2361-5080s - [id number] Implanted:Qty: 1 on 09/13/2024 by Cindy Juarez MD at [facility] Screw Right: Femur [employer] [id number] 05/11/2034 2943-0550 S / / [id number] [employer] Screw Bone 5mm 75mm Lock Strl 2361-5075s - [id number] Implanted:Qty: 1 on 09/13/2024 by Cindy Juarez MD at [facility] Screw Right: Femur [employer] [id number] 06/11/2034 2026-2538 S / / [id number] [employer] Screw Bone 5mm 60mm Lock Strl 2361-5060s - [id number] Implanted:Qty: 1 on 09/13/2024 by Cindy Juarez MD at [facility] Screw Right: Femur [employer] [id number] 05/11/2034 6533-9200 S / / [id number] [employer] Screw Bone 5mm 80mm Lock Strl 2361-5080s - [id number] Implanted:Qty: 1 on 09/13/2024 by Cindy Juarez MD at [facility] Screw Right: Femur [employer] [id number] 01/09/2034 4415-1027 S / / [id number] [employer] Screw Bone 5mm 40mm T2 Alpha Lock Strl 2360-5040s - [id number] Implanted:Qty: 1 on 09/13/2024 by Cindy Juarez MD at [facility] Screw Right: Femur [employer] [id number] 05/11/2034 7522-9109 S / / [id number] [employer] Screw Bone 5mm 40mm T2 Alpha Lock Strl 2360-5040s - [id number] Implanted:Qty: 1 on 09/13/2024 by Cindy Juarez MD at [facility] Screw Right: Femur [employer] [id number] 04/11/2034 3443-1523 S / / [id number] [employer] Screw Bone 5mm 45mm T2 Alpha Lock Strl [id number] - [id number] Implanted:Qty: 1 on 09/13/2024 by Cindy Juarez MD at [facility] Screw Right: Femur [employer] [id number] 04/11/2034 6042-2641 S / / [id number] Procedures Procedure Name Priority Date/Time Associated Diagnosis Comments XR FEMUR RIGHT 2 OR MORE VIEWS Schedule Routine, Read Routine (OP Routine) 10/31/2024 12:49 PM CDT Other fracture of right femur, initial encounter for closed fracture (HCC) EGFR Timed 09/16/2024 12:19 AM CDT HEMOGLOBIN A1C Timed 09/13/2024 8:40 PM CDT from Last 3 Months or Most Recently Relevant to Health Maintenance Results * XR Femur Right 2 or [...] fracture. Electronically signed by: Carlos Solomon D.O. Kristin Bertrand Juarez MD IMG XR PROCEDURES Final Result * eGFR (09/16/2024 12:19 AM CDT) eGFR [...] ORDERABLES Final Resu lt Performing Organization Address [facility] de Phone Number [place] [address] * Hemoglobin A1c (09/13/2024 8:40 PM CDT) [facility] Hgb A1C 5.5 4.0 - 5.6 % Estimated Average Glucose 111 mg/dL [facility] Comment: The ADA recommends reporting an [...] ORDERABLES Final Resu lt Performing Organization Address [facility] de Phone Number [place] [address] from Last 3 Months or Most Recently Relevant to Health Maintenance Insurance [id number]ICARE [facility] Address: [address] [address] [place] [address] [facility] MEDICARE [facility] Address: [address] [address] [place] [address] Advance Directives For more information, please contact: [phone] * LIMITED - No CPR (Latest Code [...] 2:41 PM 09/14/2024 10:25 AM Care Teams Bottle Inspector Relationship Specialty Start Date End Date Felicity Drake MD [address] [place] [address] PCP - General Family Practice 09/13/24
--- OUTSIDE RECORDS SUMMARY | 2025-01-15 19:42 | XMS_ITS | Clinical Summary ---
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 Pulse - - Temperature - - Respiratory Rate - - Oxygen Saturation - - Inhaled Oxygen Concentration - - Weight 117.9 kg (260 lb) 04/12/2021 1:11 PM CDT Height 157.5 cm (5' 2) 04/12/2021 1:11 PM CDT Body Mass Index 47.55 04/12/2021 1:11 PM CDT Plan of Treatment Health Maintenance Due Date Last Done Comments Hepatitis C 1966 DTaP, Tdap and Td Vaccines ( 1 - Tdap) 08/31/1967 Pneumococcal Vaccine: 50+ Ye ars (1 of 1 - PCV) 1998 Zoster Vaccines (1 of 2) 1998 Annual Medicare Wellness Visit 2013 Dexa Scan (General) 2013 RSV Immunization or 60+ Years (1 - 1-dose 75+ series) 08/31/2023 COVID-19 Vaccine (2023-2 5 season) 2024 Meningococcal B Vaccine Aged Out No l onger eligible based on patient's age to complete this topic Meningococcal Vaccine Aged Out No jordana lexy eligible based on patient's age to complete this topic RSV Immunizations Under 20 Months Aged Out No longer eligible based on patient's age to complete this topic Insurance [facility] Care Teams Electronic Scale Tester Relationship Specialty Start Date End Date Felicity Drake MD [address] [place] [address] PCP - General FAMILY PRACTICE 03/30/21
--- OUTSIDE RECORDS SUMMARY | 2025-01-15 19:42 | XMS_ITS | Clinical Summary ---
Author Organization [facility] Address [address] [place] [address] Care Team Providers Care Bundle Tier And Labeler Name Role Phone Georgiana Saucedo MD Primary Care Provider [phone]- [phone] Source Comments [facility],non-owned Affiliates and Associated Physician Practices is amultiple site organization consisting of ambulatory clinics and hospital sitesin [place], [place], [place] and [place]. This disclosure is being madepursuant to the Care Everywhere program and may not contain all information available regarding this patient. 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 Gender Identity Not on file Sexual Orientation Not on file Last Filed Vital Signs Vital Sign Reading Time Taken Comments Blood Pressure - - Pulse - - Temperature - - Respiratory Rate - - Oxygen Saturation - - Inhaled Oxygen Concentration - - Weight 117.9 kg (260 lb) 08/13/2021 2:44 PM MORTGAGE ASSISTANT Height 157.5 cm (5' 2) 08/13/2021 2:44 PM MORTGAGE ASSISTANT Body Mass Index 47.55 08/13/2021 2:44 PM MORTGAGE ASSISTANT Plan of Treatment Health Maintenance Due Date [...] season) 2024 DEPRESSION SCREENING 06/12/2024 INFLUENZA VACCINE (#1) 2025 HEPATITIS B VACCINE Aged Out No [...] MEDICARE ADV MEDICAID - OUT OF STATE [facility] MANAGED MEDICARE ADV Care Teams Bundle Tier And Labeler Relationship Specialty Start Date End Date Georgiana Saucedo MD [address] [place] [id number] PCP - General 05/14/18
--- NOTE | 2025-01-15 20:04 | ED.GENADULT ---
HPI - General Adult General Chief complaint: Nausea/Vomiting/Diarrhea Stated complaint: N/V Time Seen by Provider: 01/15/25 19:34 History of Present Illness HPI narrative: This is a 74-year-old female presenting to the ED with multiple complaints. First complaint and reason why she came to the ED is an abscess under inside of her right upper extremities. She said that she had these approximately 2 months ago requiring admission and IV antibiotics. She wanted to have this when evaluated before got significantly worse. She has no systemic signs of illness such as fevers or chills. Second complaint is abdominal discomfort and nausea. Patient says this is been ongoing for 2 months. It has not changed today. She is only speaking of the because she was here for the abscess. She has not had any vomiting or diarrhea. Bowel movements been normal. Her 3rd complaint is a rash across her abdomen. She has intertrigo in her abdominal adipose rolls. Related Data Home Medications ?Medication ?Instructions ?Recorded ?Confirmed ?Last Taken ?Type rxdwbugbcrcw-negdpxeh-vswsczr-folic 1 tablet PO DAILY 07/05/22 11/06/24 Unknown History acid 400 mcg-vit K1 20 mcg tablet (One-A-Day Women's 50 Plus) cholecalciferol (vitamin D3) 50 50 mcg PO DAILY 11/10/22 11/06/24 Unknown History mcg (2,000 unit) tablet acetaminophen 325 mg tablet 650 mg PO Q4H PRN fever or pain 11/06/24 11/06/24 Unknown History (Tylenol) Allergies Allergy/AdvReac Type Severity Reaction Status Date / Time hydrocodone Allergy Severe SET BODY Verified 11/06/24 15:23 ON FIRE methocarbamol Allergy Mild ?NOT Verified 11/06/24 15:23 FAMILIAR WITH MED. [facility] Past Medical History Medical History Cervical cancer screening Morbid obesity Osteoarthritis Prediabetes Spondylosis of lumbar spine with myelopathy Central stenosis of spinal canal Reactive depression Abnormal colonoscopy (~2012) polyps removed - repeat 5 yrs CAD (coronary artery disease) Hypothyroid Essential (primary) hypertension Hyperlipidemia Vitamin D deficiency Surgical History Surgical History H/O shoulder surgery History of surgery on arm (~1972) History of total left knee replacement (~2010) History of tubal ligation (~1973) History of cholecystectomy (~1971) Family History Family History Mother Family history of primary malignant neoplasm of liver Father Family history of coronary artery disease Social History Social History Smoking status: Never smoker Alcohol intake: never Substance use: never Substance use type: does not use Do You Feel Safe in your Home?: Yes Lack of Transportation: YES Lack of Food: Often True Current Housing: I Have Housing Concerned About Future Housing: YES Difficulty Paying Gas/Electric Bills: YES Difficulty Paying for Meds: YES Currently Unemployed: No Education: Grade School Difficulty w/ Childcare or Family Care: No Living arrangements: alone Occupation/Education: retired Gender identity (if verbalized by the patient): Female Spiritual care concerns: No Exam Narrative: APPEARANCE: No apparent distress. Head: atraumatic. EYES: EOMI, NOSE: Atraumatic NECK: Trachea midline RESPIRATORY: No increased rate of breathing clear to auscultation CARDIOVASCULAR: RRR, ABDOMINAL: Non-distended soft nontender no guarding rebound MUSCULOSKELETAl: No obvious deformities NEURO: Alert. Moving 4/4 extremities SKIN:: Intertrigo of her abdomen PSYCHIATRIC: Normal affect Course Vital Signs Vital signs: Vital Signs Temperature 97.9 F 01/15/25 18:28 Pulse Rate 80 01/15/25 18:28 Respiratory Rate 18 01/15/25 18:28 Blood Pressure 160/80 H 01/15/25 18:28 Pulse Oximetry 100 01/15/25 18:28 Oxygen Delivery Room Air 01/15/25 18:28 Temperature 97.9 F 01/15/25 18:28 Pulse Rate 65 01/15/25 19:17 Respiratory Rate 18 01/15/25 19:17 Blood Pressure 134/87 01/15/25 19:17 Pulse Oximetry 98 01/15/25 19:17 Oxygen Delivery Room Air 01/15/25 18:28 Procedures Abscess I/D other: Date of Incision: 01/15/25 Side (if applicable): right Local Anesthetic: bupivacaine 0.25% Amount of anesthesia used (mL): 3 Technique: incised with #11 blade Amount of fluid expressed (mL): 1 Irrigation: Yes Packing used?: none I&D Results: Pus Medical Decision Making MDM Narrative Medical decision making narrative: -Course: 74-year-old female presenting with multiple complaints. The main 1 being a small abscess on her right arm. This was incised and drained. Second complaint is a intertrigo rash in her abdomen. She will be discharged on clotrimazole. Third complaint is 2 months of abdominal discomfort associated with nausea. CT abdomen pelvis did not reveal any acute findings in the abdomen. Patient will be discharged on Zofran. Vital Signs Vital Signs: Vital Signs Temperature 97.9 F 01/15/25 18:28 Pulse Rate 80 01/15/25 18:28 Respiratory Rate 18 01/15/25 18:28 Blood Pressure 160/80 H 01/15/25 18:28 Pulse Oximetry 100 01/15/25 18:28 Oxygen Delivery Room Air 01/15/25 18:28 Temperature 97.9 F 01/15/25 18:28 Pulse Rate 65 01/15/25 19:17 Respiratory Rate 18 01/15/25 19:17 Blood Pressure 134/87 01/15/25 19:17 Pulse Oximetry 98 01/15/25 19:17 Oxygen Delivery Room Air 01/15/25 18:28 Lab Data 01/15/25 19:18 01/15/25 19:18 Labs: Lab Results 01/15/25 Range/Units 19:18 WBC 8.0 (4.5-10.0) K/mm3 RBC 4.62 (4.2-5.4) M/mm3 Hgb 12.7 (12.0-15.0) g/dL Hct 41.6 (37.0-47.0) % MCV 90.0 (80-100) fl MCH 27.5 (26-34) pg MCHC 30.5 L (32-36) g/dl RDW 15.9 H (11.5-14.5) % Plt Count 267 (150-375) k/mm3 MPV 10.1 (7.4-10.4) fl Immature Gran % (Auto) 0.4 (0-0.5) % Neut % (Auto) 60.5 (45.5-73.1) % Lymph % (Auto) 23.6 (18.3-44.2) % [place] % (Auto) 10.1 H (2.6-8.5) % Eos % (Auto) 4.5 H (0-4.4) % Baso % (Auto) 0.9 (0.2-1.2) % Lymph # (Auto) 1.89 (0.9-3.2) K/mm3 [place] # (Auto) 0.8 H (0.1-0.6) K/mm3 Eos # (Auto) 0.4 H (0-0.3) K/mm3 Baso # (Auto) 0.1 (0.0-0.1) K/mm3 Abs Immat Gran (auto) 0.03 (0.00-0.031) K/mm3 Absolute Neuts (auto) 4.8 (1.3-6.7) K/mm3 Absolute Nucleated RBC 0.000 (0.0-0.012) K/mm3 Nucleated RBC % 0.0 (0.0-0.2) % Sodium 139 (137-145) mmol/L Potassium 4.3 (3.4-5.0) mmol/L Chloride 104 (98-107) mmol/L Carbon Dioxide 28 (22-30) mmol/L Anion Gap 7 (4-12) mmol/L BUN 16 (7-17) mg/dL Creatinine 0.80 (0.7-1.0) mg/dL Estim Creat Clear Calc Not Reportable Estimated GFR > 60 (59 - ) Glucose 98 (65-110) mg/dL Calcium 9.4 (8.4-10.2) mg/dL Total Bilirubin 0.4 (0.2-1.3) mg/dL AST 28 (14-36) U/L ALT 14 (6-35) U/L Alkaline Phosphatase 99 (38-126) U/L Total Protein 7.8 (6.3-8.2) g/dL Albumin 4.0 (3.5-5.1) g/dL Lipase 56 (23-300) U/L Discharge Plan Discharge Clinical Impression: Abscess, Candidal intertrigo, Nausea Patient Disposition: Home Condition: Stable Instructions: Antibiotic Form, Acute Nausea and Vomiting (ED), Abscess (ED), Skin Yeast Infection (ED) Additional Instructions: He was seen emergency department for an abscess. This is been drained. She continued to improve over the next several days. If it does not and is getting worse please return to the ED for re-evaluation. Please use clotrimazole twice daily for 6 weeks for your rash. Please try to keep the skin is dry as possible. Please follow-up with your primary care physician. Please use Zofran as needed for nausea. Patient Language: Kinyarwanda Prescriptions: New clotrimazole 1 % cream 1 applic topical BID 28 Days Qty: 45 0RF ondansetron 4 mg tablet,disintegrating 4 mg PO Q8H PRN (Reason: nausea and vomiting) Qty: 30 0RF No Action One-A-Day Women's 50 Plus 400-20 mcg tablet 1 tablet PO DAILY cholecalciferol (vitamin D3) 50 mcg (2,000 unit) tablet 50 mcg PO DAILY acetaminophen [Tylenol] 325 mg tablet 650 mg PO Q4H PRN (Reason: fever or pain) amoxicillin-pot clavulanate 875-125 mg tablet 1 tablet PO Q12H Qty: 10 0RF promethazine 25 mg tablet 25 mg PO Q6H PRN (Reason: nausea and vomiting) Qty: 120 0RF aspirin 81 mg tablet,delayed release (DR/EC) 81 mg PO DAILY Qty: 90 0RF Rx Instructions: due for an appointment. last refill until seen. atorvastatin 40 mg tablet 40 mg PO QHS Qty: 90 2RF Jardiance 25 mg tablet 25 mg PO DAILY Qty: 90 2RF ezetimibe 10 mg tablet 10 mg PO DAILY Qty: 90 2RF levothyroxine 75 mcg tablet 75 mcg PO DAILY Qty: 90 1RF losartan 100 mg tablet 100 mg PO DAILY Qty: 90 1RF sertraline [Zoloft] 100 mg tablet 100 mg PO DAILY Qty: 90 1RF Follow-up/Referrals: Elza Drake MD [Primary Care Provider] - 3 Days (ED f/u)
[2025-01-15] MEDS: ONDANSETRON INJ 4 MG/2 ML VIAL IV PUSH (20:07)
[2025-01-15 21:10] VITALS: BP 130/109; PULSE 88; RESP 18; O2SAT 100
== END 2025-01-15 22:27 | disposition home or self-care (01) ==
PROVIDERS: Student in an Organized Health Care Education/Training Program; Emergency Provider Emergency Medicine; PCP Family Medicine
DX: L02.413 Cutaneous abscess of right upper limb (principal); B37.2 Candidiasis of skin and nail; R11.0 Nausea; I25.10 Atherosclerotic heart disease of native coronary artery without angina pectoris; I10 Essential (primary) hypertension; E03.9 Hypothyroidism, unspecified; E78.5 Hyperlipidemia, unspecified; E55.9 Vitamin D deficiency, unspecified; R73.03 Prediabetes; Z96.652 Presence of left artificial knee joint; Z90.49 Acquired absence of other specified parts of digestive tract
CPT/HCPCS: 10060; 36415; 74177; 80053; 83690; 85025; 96374; 99284; J2405; Q9967